=== PATIENT | female | born 1960 | race Caucasian/White ===

== ENCOUNTER 2017-04-02 03:37 | Inpatient (IN) | payer OTHER, MEDICARE ==
[~2017-04-02] VITALS: Ht 154.9 cm; Wt 61.9 kg
[~2017-04-02 03:37] MED LIST: ALBU1AER INH; ASPI81 PO; BENZ1TAB PO; CARV3.12 PO; CLON1 PO; GABA300 PO; GLUCOSE LANCETS; GLUCOSE TEST; GLUCTAB PO; IPRA17I INH; LORTA10 PO; NIAC500T34 PO; NICOTROL INH; OMEG1CAP53 PO; OMEP20TA PO; PARIMIS XX; PRAV20 PO; PRIN20TA2 PO; RISP3 PO; SELE2.5%T TOP; SYNT25TA PO; TRIA.1%T TOP; WAL-10TA2 PO; [UNRECOGNIZED DRUG - CODE] XX; [UNRECOGNIZED DRUG - SUPPLY]; [UNRECOGNIZED DRUG - SUPPLY]; glucometer
[2017-04-02 03:51] VITALS: BP 115/59; PULSE 61; RESP 18; TEMP 97.7; O2SAT 100
[2017-04-02] MEDS ORDERED: ASPI-110 PO (04:12)
[2017-04-02] MEDS ORDERED: RISP12.5 IM (04:12)
[2017-04-02] MEDS ORDERED: METF500T4 PO (04:12)
[2017-04-02] MEDS ORDERED: ENAL10TA PO (04:12)
[2017-04-02] MEDS ORDERED: BENZ0.5T PO ×2 (04:12→12:31)
[2017-04-02] MEDS ORDERED: CARV3.12 PO ×2 (04:12→12:32)
[2017-04-02] MEDS ORDERED: SYNT25TA PO (04:12)
[2017-04-02] MEDS ORDERED: CLON1 PO (04:12)
[2017-04-02] MEDS ORDERED: IPRA17I INH ×2 (04:12→12:39)
[2017-04-02] MEDS ORDERED: ALBUAER3 INH (04:12)
--- NOTE | 2017-04-02 04:18 | PD ---
HPI Chief Complaint: Psychiatric Symptoms Time Seen by Provider: 03:52 Travel History International Travel<30 days: No Contact w/Intl Traveler<30days: No Traveled to known affect area: No History of Present Illness HPI 56-year-old white female presents to emergency department under Chao act by PD. Patient was found to be walking down the middle of the street. The patient states that she's been feeling increasingly depressed and having suicidal thoughts. She had intended to kill herself by walking down the road into traffic. She states that she has not been completely compliant with her medications. She has a history of schizophrenia and has been hearing voices. She denies any homicidal ideation. No toxic ingestions. She does complain of chronic shoulder and back pain. PFSH Past Medical History Arthritis: Yes Asthma: No Autoimmune Disease: No Heart Rhythm Problems: No Cardiovascular Problems: Yes High Cholesterol: No Chest Pain: No Congestive Heart Failure: No COPD: Yes Cerebrovascular Accident: No Diabetes: Yes Patient Takes Glucophage: No Diminished Hearing: No Endocrine: No GERD: Yes Glaucoma: No Headaches: No Hepatitis: No Hiatal Hernia: No Hypertension: Yes Kidney Stones: No Musculoskeletal: No Neurologic: No Respiratory: No Myocardial Infarction: No Renal Failure: No Schizophrenia: Yes Seizures: No Thyroid Disease: No Ulcer: No Tetanus Vaccination: < 5 Years Influenza Vaccination: No Past Surgical History Abdominal Surgery: No AICD: No Cardiac Surgery: No Cholecystectomy: Yes Ear Surgery: No Endocrine Surgery: No Eye Surgery: No Genitourinary Surgery: No Gynecologic Surgery: No Oral Surgery: No Pacemaker: No Thoracic Surgery: No Other Surgery: Yes (SPLEEN) Social History Alcohol Use: No Tobacco Use: Yes Substance Use: No Allergies-Medications (Allergen,Severity, Reaction): Coded Allergies: buspirone (Unverified Allergy, Severe, HEART RACES, 04/02/17) doxycycline (Unverified Allergy, Severe, 04/02/17) minocycline (Unverified Allergy, Severe, 04/02/17) tigecycline (Unverified Allergy, Severe, 04/02/17) diphenhydramine (Unverified Allergy, Intermediate, hives, 04/02/17) diazepam (Unverified Allergy, Mild, HEART RACES, 04/02/17) erythromycin base (Unverified Allergy, Unknown, 04/02/17) penicillin V (Unverified Allergy, Unknown, 04/02/17) bupropion (Unverified Adverse Reaction, Intermediate, suicidal, 04/02/17) mometasone furoate (Unverified Adverse Reaction, Intermediate, NOSE BLEED , 04/02/17) ziprasidone (Unverified Adverse Reaction, Intermediate, tremor, 04/02/17) onion (Unverified Adverse Reaction, Mild, emesis, 04/02/17) Uncoded Allergies: MYCINS (Allergy, Severe, 10/19/08) CITRUS (Allergy, Mild, Blader infection , 12/12/11) Reported Meds & Prescriptions Reported Meds & Active Scripts Active Reported Risperdal Consta Inj (Risperidone Inj) 12.5 Mg Inj 12.5 Mg IM Q14D Metformin ER (Metformin HCl) 500 Mg Justa 500 Mg PO BID With evening meal Synthroid (Levothyroxine Sodium) 25 Mcg Tab 25 Mcg PO DAILY Enalapril (Enalapril Maleate) 10 Mg Tab 10 Mg PO DAILY Atrovent HFA 12.9 GM Inh (Ipratropium Pioneer) 17 Mcg/Act Aer 2 Puff INH QID Klonopin (Clonazepam) 1 Mg Tab 1 Mg PO TID Carvedilol 3.125 Mg Tab 3.125 Mg PO BID Benztropine (Benztropine Mesylate) 0.5 Mg Tab 1 Mg PO BID Aspirin 81 (Aspirin) 81 Mg Tabdr 81 Mg PO DAILY Proair Hfa 8.5 GM Inh (Albuterol Sulfate) 90 Mcg/Act Aer 2 Puff INH Q4-6H PRN 108 mcg/actuation Review of Systems Except as stated in HPI: all other systems reviewed are Neg Musculoskeletal: Positive: Myalgias, Arthralgias, Limited ROM, Pain Skin: No Rash, No Itching Neurologic: No: Headache, Paresthesia Psychiatric: Positive: Depression, Suicidal Ideations, Disorder of Thought, No : Anxiety, Mood Disorder, Substance Abuse, Homicidal Ideation Physical Exam Narrative GENERAL: Well-nourished, well-developed patient. SKIN: Warm and dry. HEAD: Normocephalic and atraumatic. EYES: No scleral icterus. No injection or drainage. ENT: No nasal drainage noted. Mucous membranes pink. Airway patent. NECK: Supple, trachea midline. Moves head freely without obvious discomfort. CARDIOVASCULAR: Regular rate and rhythm without murmurs, gallops, or rubs. RESPIRATORY: Breath sounds equal bilaterally. No accessory muscle use. GASTROINTESTINAL: Abdomen soft, non-tender, nondistended. EXTREMITIES: No cyanosis or edema. BACK: Nontender without obvious deformity. No CVA tenderness. NEURO: Patient is alert and oriented. no sensorimotor deficits. Nonfocal. Normal speech. PSYCH: No delusions. Positive auditory hallucinations. Poor insight and judgment. No visual hallucinations. Data Data Last Documented VS Vital Signs Date Time Temp Pulse Resp B/P (MAP) Pulse Ox O2 Delivery O2 Flow Rate FiO2 04/02/17 03:55 18 04/02/17 03:51 97.7 61 115/59 (77) 100 Orders Orders Complete Blood Count With Diff (04/02/17 03:52) Comprehensive Metabolic Panel (04/02/17 03:52) Urinalysis - C+S If Indicated (04/02/17 03:52) Psych Screen (04/02/17 03:52) Drug Screen, Random Urine (04/02/17 03:52) Alcohol (Ethanol) (04/02/17 03:52) Salicylates (Aspirin) (04/02/17 03:52) Tylenol (Acetaminophen) (04/02/17 03:52) Thyroid Stimulating Hormone (04/02/17 03:52) MDM Medical Decision Making Medical Screen Exam Complete: Yes Emergency Medical Condition: Yes Medical Record Reviewed: Yes Differential Diagnosis MDM: High Differential diagnoses: Schizophrenia, schizoaffective disorder, bipolar, anxiety, depression, adjustment reaction, mood disorder NOS, ODD, depressive disorder NOS, dementia, dementia with agitation, psychosis NOS, substance induced mood disorder, intermittent explosive disorder, Asperger syndrome, infection,electrolyte abnormality, malingering. . Narrative Course Mental health screening discussed with the patient. Psychiatric screen ordered The patient's been medically cleared Diagnosis Primary Impression: Chronic schizoaffective schizophrenia Condition: Stable Guanaco Parker Apr 02, 2017 04:18
[2017-04-02 04:30] LABS: BLOOD, URINE NEG (NEG); COMMENT (UR) CULT NOT INDICATED; CULTURE IF INDICATED CULT NOT INDICATED; GLUCOSE,URINE NEG (NEG); KETONE, URINE NEG (NEG); MUCUS URINE FEW /lpf (OCC); NITRITE,URINE NEG (NEG); PH, URINE 6.5 (5.0-8.5); SQUAMOUS EPITHELIAL CELL URINE 1 /hpf (0-5); URINE COLOR YELLOW (YELLW/STRAW)
[2017-04-02 04:43] LABS: ALT (GPT) 43 U/L (10-53); ANION GAP 6 MEQ/L (5-15); AST (GOT) 16 U/L (15-37); BICARBONATE 30.9 MEQ/L (21.0-32.0); BLOOD UREA NITROGEN 17 MG/DL (7-18); CHLORIDE 106 MEQ/L (98-107); GLOMERULAR FILTRATION RATE 84 ML/MIN (>89); POTASSIUM 4.1 MEQ/L (3.5-5.1); SODIUM (NA) 143 MEQ/L (136-145)
[2017-04-02 04:53] LABS: ACETAMINOPHEN LESS THAN 2.0 MCG/ML (10.0-30.0); ALKALINE PHOSPHATASE 100 U/L (45-117); TOTAL BILIRUBIN ADULT 0.4 MG/DL (0.2-1.0)
[2017-04-02 04:56] LABS: ALCOHOL LESS THAN 3 MG/DL (0-5)
[2017-04-02 05:08] VITALS: BP 93/52; PULSE 50; RESP 18; O2SAT 97
[2017-04-02 07:32] LABS: AUTOMATED NEUTROPHIL # 7.2 TH/MM3 (1.8-7.7); BASOPHIL # 0.1 TH/MM3 (0-0.2); BASOPHIL % 0.6 % (0.0-2.0); EOSINOPHIL # 0.5 TH/MM3 (0-0.4); EOSINOPHIL % 4.2 % (0.0-4.0); HEMATOCRIT 43.1 % (35.0-46.0); LYMPH % 31.8 % (9.0-44.0); LYMPHOCYTE # 4.1 TH/MM3 (1.0-4.8); MEAN CELL VOLUME 94.7 FL (80.0-100.0); MEAN CORPUSCULAR HEMOGLOBIN 31.1 PG (27.0-34.0); MEAN CORPUSCULAR HGB CONC 32.8 % (32.0-36.0); MONO % 7.3 % (0.0-8.0); NEUT % 56.1 % (16.0-70.0); RED BLOOD COUNT 4.55 MIL/MM3 (4.00-5.30); RED CELL DISTRIBUTION WIDTH 12.3 % (11.6-17.2)
[2017-04-02 07:35] LABS: HEMO FLAGS AUTO DIFF
[2017-04-02 07:36] LABS: PLATELET COUNT 194 TH/MM3 (150-450)
[2017-04-02 07:54] LABS: PLATELET ESTIMATE SMEAR NORMAL (NORMAL); PLATELET MORPHOLOGY CLUMPED (NORMAL); SCAN/DIFF AUTO DIFF CONFIRMED
[2017-04-02 08:00] VITALS: BP 122/66; PULSE 68; RESP 18; O2SAT 98
[2017-04-02 11:12] VITALS: BP 125/65; PULSE 63; RESP 16; O2SAT 99
[2017-04-02] MEDS ORDERED: HYDR50CA PO (12:29)
[2017-04-02] MEDS ORDERED: OMEP20TA PO (12:31)
[2017-04-02] MEDS ORDERED: GABA300C5 PO (12:36)
[2017-04-02] MEDS ORDERED: VENTAER INH (12:36)
[2017-04-02] MEDS ORDERED: ATOR10TA15 PO (12:37)
[2017-04-02] MEDS ORDERED: CLON1TAB PO (12:38)
[2017-04-02] MEDS ORDERED: NIZORAL TOPICAL (12:40)
[2017-04-02] MEDS ORDERED: ACETAMINOPHEN 325 MG TAB PO PRN (12:45)
[2017-04-02] MEDS ORDERED: LORazepam 2 MG/ML VIAL IM PRN ×2 (12:45)
[2017-04-02] MEDS ORDERED: LORazepam 0.5 MG TAB PO PRN (12:45)
[2017-04-02] MEDS ORDERED: ALUMINUM/MAGNESIUM/SIMETH 30 ML CUP PO PRN (12:45)
[2017-04-02] MEDS ORDERED: MAGNESIUM HYDROXIDE SUSP 30 ML CUP PO PRN (12:45)
[2017-04-02] MEDS ORDERED: PALI234P IM (12:49)
--- NOTE | 2017-04-02 13:25 | HHI.HP ---
Provisional Diagnosis Admission Date [place] I. Chronic paranoid schizophrenia Certification of Person's Competence To Provide Express and Informed Consent I have personally examined Briseida Hansen , a person being served at [facility] on, Apr 02, 2017 12:41. Express and informed consent means consent voluntarily given in writing, by a competent person, after sufficient explanation and disclosure of the subject matter involved to enable the person to make a knowing and willful decision without any element of force, fraud, deceit, duress, or other form of constraint or coercion. This person is 18 years of age or older, is not now known to be incompetent to consent to treatment with a guardian advocate, and does not have a health care surrogate or proxy currently making medical treatment decisions. I have found this person to be one of the following: [x] Competent to provide express and informed consent, as defined above, for voluntary admission to this facility and is competent to provide express and informed consent for treatment. He/she has the consistent capacity to make well reasoned, willful, and knowing decisions concerning his or her medical or mental health treatment. The person fully and consistently understands the purpose of the admission for examination/placement and is fully capable of personally exercising all rights [place] Incompetent to provide express and informed consent to voluntary admission, and this is incompetent to provide express and informed consent to treatment. The person must be transferred to involuntary status and a petition for a guardian advocate filed with the Circuit Court. [] Refusing to provide express and informed consent to voluntary admission but is competent to provide express and informed consent for treatment. The person must be discharged or transferred to involuntary status. Form shall be completed within 24 hours of a person's arrival at the receiving facility and filed in the clinical record of each person: 1. Admitted on a voluntary basis 2. Permitted to provide express and informed consent to his/her own treatment 3. Allowed to transfer from involuntary to voluntary status 4. Prior to permitting a person to consent to his or her own treatment after having been previously found incompetent to consent to treatment. History of Present Illness Capacity: Has Capacity HPI 56-year-old female brought in under a [place]ao act by police due to walking in the middle of the road, indicating she wanted to be hit by a car and complaining of hearing voices. Patient is self-admitted schizophrenic and indicates she has not been very compliant with her medicines over the last several months. Police observed her walking in the middle of the road on [facility]. Patient continues to report suicidal ideation with plan. She continues to describe paranoia at her residence. She states the lights at that facility are tracking her and she must be silent from 10 PM to 6 AM. She also describes auditory hallucinations which are critical of her. The patient feels she can no longer tolerate her situation and this is the reason that she wants to kill herself. She denies any ingestion of alcohol or illicit drugs. However, she is unable to provide a cogent history regarding her current medications or treatment. court collections officer wrote that she takes Risperdal and has a history of cardiac problems. Some history patient has been treated at [facility] recently with in [facility]. Review of Systems Except as stated in HPI: all other systems reviewed are Neg Past Psych History Psychological trauma history No known trauma. Violence risk - others (6 mos) Minimal Violence risk - self (6 mos) High Substance Abuse History Drugs/Alcohol past 12 months Denied Past Family Social History Coded Allergies: buspirone (Unverified Allergy, Severe, HEART RACES, 04/02/17) doxycycline (Unverified Allergy, Severe, 04/02/17) minocycline (Unverified Allergy, Severe, 04/02/17) tigecycline (Unverified Allergy, Severe, 04/02/17) diphenhydramine (Unverified Allergy, Intermediate, hives, 04/02/17) diazepam (Unverified Allergy, Mild, HEART RACES, 04/02/17) erythromycin base (Unverified Allergy, Unknown, 04/02/17) penicillin V (Unverified Allergy, Unknown, 04/02/17) bupropion (Unverified Adverse Reaction, Intermediate, suicidal, 04/02/17) mometasone furoate (Unverified Adverse Reaction, Intermediate, NOSE BLEED , 04/02/17) ziprasidone (Unverified Adverse Reaction, Intermediate, tremor, 04/02/17) onion (Unverified Adverse Reaction, Mild, emesis, 04/02/17) Uncoded Allergies: MYCINS (Allergy, Severe, 10/19/08) CITRUS (Allergy, Mild, Blader infection , 12/12/11) Reported Medications [Nizoral Cream] No Conflict Check, TOPICAL 04/02/17 Ipratropium HFA 12.9 GM Inh (Atrovent HFA 12.9 GM Inh) 17 Mcg/Actuation Aer, 1 PUFF INH QID Y for SHORTNESS OF BREATH, #1 INHALER 0 Refills 04/02/17 Clonazepam (Clonazepam) 1 Mg Tab, 1 MG PO TID Y for ANXIETY, #90 TAB 0 Refills 04/02/17 Atorvastatin (Atorvastatin) 10 Mg Tab, 10 MG PO DAILY for Cholesterol Management , #30 TAB 0 Refills 04/02/17 Albuterol 18 GM Inh (Ventolin Hfa 18 GM Inh) 90 Mcg/Act Aer, 2 PUFF INH Q6H Y for SHORTNESS OF BREATH, #1 INHALER 0 Refills 04/02/17 Gabapentin (Gabapentin) 300 Mg Cap, 300 MG PO TID, #90 CAP 0 Refills 04/02/17 Carvedilol (Carvedilol) 3.125 Mg Tab, 3.125 MG PO BID, #60 TAB 0 Refills 04/02/17 Omeprazole (Omeprazole) 20 Mg Tab, 20 MG PO DAILY, #30 TAB 0 Refills 04/02/17 Benztropine (Benztropine) 0.5 Mg Tab, 1 MG PO HS, #30 TAB 0 Refills 04/02/17 Hydroxyzine Pamoate (Hydroxyzine Pamoate) 50 Mg Cap, 50 MG PO TID, CAP 0 Refills 04/02/17 Risperidone Inj (Risperdal Consta Inj) 12.5 Mg Inj, 12.5 MG IM Q14D, #2 VIAL 0 Refills 04/02/17 Metformin ER (Metformin ER) 500 Mg Justa, 500 MG PO BID for Blood Sugar Management, TAB 0 Refills With evening meal 04/02/17 Levothyroxine (Synthroid) 25 Mcg Tab, 25 MCG PO DAILY for Thyroid, #30 TAB 0 Refills 04/02/17 Enalapril (Enalapril) 10 Mg Tab, 10 MG PO DAILY, #30 TAB 0 Refills 04/02/17 Ipratropium HFA 12.9 GM Inh (Atrovent HFA 12.9 GM Inh) 17 Mcg/Act Aer, 2 PUFF INH QID, #1 INHALER 0 Refills 04/02/17 Clonazepam (Klonopin) 1 Mg Tab, 1 MG PO TID, #90 TAB 0 Refills 04/02/17 Carvedilol (Carvedilol) 3.125 Mg Tab, 3.125 MG PO BID, #60 TAB 0 Refills 04/02/17 Benztropine (Benztropine) 0.5 Mg Tab, 1 MG PO BID, #60 TAB 0 Refills 04/02/[address] (Aspirin 81) 81 Mg Tabdr, 81 MG PO DAILY, TAB 0 Refills 04/02/17 Albuterol 8.5 GM Inh (Proair Hfa 8.5 GM Inh) 90 Mcg/Act Aer, 2 PUFF INH Q4-6H Y for SHORTNESS OF BREATH, #1 INHALER 0 Refills 108 mcg/actuation 04/02/17 Family History Unknown to patient Social History Apparently patient sister has power of district attorney. Patient denies use of alcohol or drugs. She is unemployed and receives disability. Patient's Strengths (min. 2) verbal and access to health care. Physical Exam GENERAL: SKIN: Warm and dry. HEAD: Normocephalic. EYES: No scleral icterus. No injection or drainage. NECK: Supple, trachea midline. No JVD or lymphadenopathy. CARDIOVASCULAR: Regular rate and rhythm without murmurs, gallops, or rubs. RESPIRATORY: Breath sounds equal bilaterally. No accessory muscle use. GASTROINTESTINAL: Abdomen soft, non-tender, nondistended. MUSCULOSKELETAL: No cyanosis, or edema. BACK: Nontender without obvious deformity. No CVA tenderness. Vital Signs Vital Signs Date Time Temp Pulse Resp B/P (MAP) Pulse Ox O2 Delivery O2 Flow Rate FiO2 04/02/17 11:12 63 16 125/65 (85) 99 Room Air 04/02/17 03:51 97.7 Lab Results Test 04/02/17 04:00 04/02/17 07:00 Urine Color YELLOW Urine Turbidity CLEAR Urine pH 6.5 Urine Specific [place] 1.016 Urine Protein NEG mg/dL Urine Glucose (UA) NEG mg/dL Urine Ketones NEG mg/dL Urine Occult Blood NEG Urine Nitrite NEG Urine Bilirubin NEG Urine Urobilinogen LESS THAN 2.0 MG/DL Urine Leukocyte Esterase NEG Urine RBC LESS THAN 1 /hpf Urine WBC 2 /hpf Urine Squamous Epithelial Cells 1 /hpf Urine Mucus FEW /lpf Microscopic Urinalysis Comment CULT NOT INDICATED Blood Urea Nitrogen 17 MG/DL Creatinine 0.72 MG/DL Random Glucose 96 MG/DL Total Protein 6.9 GM/DL Albumin 3.7 GM/DL Calcium Level 10.0 MG/DL Alkaline Phosphatase 100 U/L Aspartate Amino Transf (AST/SGOT) 16 U/L Alanine Aminotransferase (ALT/SGPT) 43 U/L Total Bilirubin 0.4 MG/DL Sodium Level 143 MEQ/L Potassium Level 4.1 MEQ/L Chloride Level 106 MEQ/L Carbon Dioxide Level 30.9 MEQ/L Anion Gap 6 MEQ/L Estimat Glomerular Filtration Rate 84 ML/MIN Thyroid Stimulating Hormone 3rd Gen 4.150 uIU/ML Salicylates Level 3.2 MG/DL Urine Opiates Screen NEG Acetaminophen Level LESS THAN 2.0 MCG/ML Urine Barbiturates Screen NEG Urine Amphetamines Screen NEG Urine Benzodiazepines Screen NEG Urine Cocaine Screen NEG Urine Cannabinoids Screen NEG Ethyl Alcohol Level LESS THAN 3 MG/DL White Blood Count 11.0 TH/MM3 Red Blood Count 4.55 MIL/MM3 Hemoglobin 14.2 GM/DL Hematocrit 43.1 % Mean Corpuscular Volume 94.7 FL Mean Corpuscular Hemoglobin 31.1 PG Mean Corpuscular Hemoglobin Concent 32.8 % Red Cell Distribution Width 12.3 % Platelet Count 194 TH/MM3 Mean Platelet Volume 7.9 FL Neutrophils (%) (Auto) 56.1 % Lymphocytes (%) (Auto) 31.8 % Monocytes (%) (Auto) 7.3 % Eosinophils (%) (Auto) 4.2 % Basophils (%) (Auto) 0.6 % Neutrophils # (Auto) 7.2 TH/MM3 Lymphocytes # (Auto) 4.1 TH/MM3 Monocytes # (Auto) 0.9 TH/MM3 Eosinophils # (Auto) 0.5 TH/MM3 Basophils # (Auto) 0.1 TH/MM3 CBC Comment AUTO DIFF Differential Comment AUTO DIFF CONFIRMED Platelet Estimate NORMAL Platelet Morphology Comment CLUMPED Mental Status Examination Speech: Unremarkable Orientation: x3 Memory: Unremarkable Thought Process: Loose Association Thought Content: Bizarre thinking, Paranoid Hallucination Type: Auditory Attention and Concentration: Abnormal Suicidal Ideation: Yes Previous Suicide Attempts: No Homicidal Ideation: No Previous Homicide Attempts: No Insight: Fair Judgment: Unrealistic Affect: Good Affect if Inappropriate: Blunt Mood: Appropriate, Irritable Motor Activity: Normal gait Assessment & Plan Problem List: (1) Schizophrenia, paranoid type ICD Codes: F20.0 - Paranoid schizophrenia Status: Chronic Assessment & Plan Estimated LOS: days 56-year-old female presents under a Chao act for dangerous behavior and psychotic symptoms. Patient found walking in the middle of [address], stating she wanted to kill herself by stepping in front of traffic and describing auditory hallucinations. This physician feels patient is at very high risk for self-harm. She continues to be psychotic and suicidal. This physician is admitting the patient for further evaluation and treatment. I am obtaining a CBC and comprehensive metabolic profile to determine if any infectious process or metabolic process is causing or contributing to her psychosis. She will also receive thyroid stimulating hormone level, vitamin B 12 level and vitamin D level to ascertain if any deficiencies in these areas are causing her creating her psychosis. She will receive a EKG to make sure cardiac conduction systems are adequate to tolerate and I psychotic and possibly antidepressant medication. This physician is contacting hospitalist for physical medicine consult due to patient's history of cardiac illness and current inguinal rash complaints. Occupational therapy is also being consult to evaluate the patient's functionality. This physician spoke with the patient' s nurse regarding her recent behavior and reviewed the patient's medical record. Finally, case management will be involved to obtain further information from sister, who is power of district attorney and to assist with disposition planning. Markos Thomas MD Apr 02, 2017 13:25
--- NOTE | 2017-04-02 14:33 | PD.CONS ---
HPI Service [facility] Hospitalists Consult Requested By Dr. Thomas Reason for Consult Inguinal rash Primary Care Physician Florence Stout MD Diagnoses: History of Present Illness Written by Nora Saba, acting as scribe for Dr. Benoit on 04/02/17 at 14:30. Ms. Hansen is a 56-year-old female patient with a known medical history of schizophrenia, tobacco abuse, COPD, CAD and neuropathy who presented to the ED under BA due to paranoid schizophrenia and suicidal thoughts. Hospitalist team has been consulted for medical management for inguinal rash. Patient states that she was in an argument with her sister today and became upset and "tried to get killed by a car today". Patient currently denies any suicidal ideation. She does state that she has had a rash in her groin area for over 15 years and has tried multiple remedies including gold gayle and zinc oxide with no affect. She states she has been seen recently by her PCP who prescribed ketoconazole cream for the area which has showed some improvement. Does state that she has a new boyfriend but denies any sexual relationship with him. Denies any recent illness including fever, chills, cough, shortness of breath, abdominal pain, nausea, vomiting, diarrhea or dysuria. Admits to compliance with all current medications. Does admit to current tobacco use of 2 ppd. Patient also states she follows with [facility] [place] in the outpatient setting for management of her paranoid schizophrenia. Review of Systems Integumentary: COMPLAINS OF: Rash (inguinal) Psychiatric: COMPLAINS OF: Mood changes, Suicidal Ideation Except as stated in HPI: all other systems reviewed are Neg Past Family Social History Allergies: Coded Allergies: buspirone (Unverified Allergy, Severe, HEART RACES, 04/02/17) doxycycline (Unverified Allergy, Severe, 04/02/17) minocycline (Unverified Allergy, Severe, 04/02/17) tigecycline (Unverified Allergy, Severe, 04/02/17) diphenhydramine (Unverified Allergy, Intermediate, hives, 04/02/17) diazepam (Unverified Allergy, Mild, HEART RACES, 04/02/17) Benzodiazepines (Verified Allergy, Unknown, 04/02/17) Per Pharmacist - Micha José [facility] [place], [place] [phone]. Penicillins (Verified Allergy, Unknown, 04/02/17) Per [place], [place] [phone]. Sulfa (Sulfonamide Antibiotics) (Verified Allergy, Unknown, 04/02/17) [place] [phone]. Tetracyclines (Verified Allergy, Unknown, 04/02/17) [place], [place] [phone]. erythromycin base (Unverified Allergy, Unknown, 04/02/17) penicillin V (Unverified Allergy, Unknown, 04/02/17) bupropion (Unverified Adverse Reaction, Intermediate, suicidal, 04/02/17) mometasone furoate (Unverified Adverse Reaction, Intermediate, NOSE BLEED , 04/02/17) ziprasidone (Unverified Adverse Reaction, Intermediate, tremor, 04/02/17) onion (Unverified Adverse Reaction, Mild, emesis, 04/02/17) Uncoded Allergies: MYCINS (Allergy, Severe, 10/19/08) CITRUS (Allergy, Mild, Blader infection , 12/12/11) Macrolides (Allergy, Unknown, 04/02/17) Per [place], [place] [phone]. Quinines (Allergy, Unknown, 04/02/17) [place] [phone]. Past Medical History Hypertension GERD CAD COPD Tobacco abuse Paranoid schizophrenia Neuropathy Hyperlipidemia Chronic back and neck pain Past Surgical History Cholecystectomy Reported Medications Active Reported Invega Sustenna Inj (Paliperidone Palmitate) 234 Mg/1.5 Ml Inj 234 Mg IM [id number] [Nizoral Cream] TOPICAL Atrovent HFA 12.9 GM Inh (Ipratropium [place]) 17 Mcg/Actuation Aer 1 Puff INH QID PRN Clonazepam 1 Mg Tab 1 Mg PO TID PRN Atorvastatin (Atorvastatin Calcium) 10 Mg Tab 10 Mg PO DAILY Ventolin Hfa 18 GM Inh (Albuterol Sulfate) 90 Mcg/Act Aer 2 Puff INH Q6H PRN Gabapentin 300 Mg Cap 300 Mg PO TID Carvedilol 3.125 Mg Tab 3.125 Mg PO BID Omeprazole 20 Mg Tab 20 Mg PO DAILY Benztropine (Benztropine Mesylate) 0.5 Mg Tab 1 Mg PO HS Hydroxyzine Pamoate 50 Mg Cap 50 Mg PO TID Active Ordered Medications Current Medications Medications (Trade) Dose Ordered Sig/Cristiane Route Start Time Stop Time Status Last Admin (Ativan) 1 mg Q6H PRN PO 04/02/17 12:45 (Ativan Inj) 1 mg Q6H PRN IM 04/02/17 12:45 (Tylenol) 650 mg Q4H PRN PO 04/02/17 12:45 (Milk Of Magnesia Liq) 30 ml DAILY PRN PO 04/02/17 12:45 (Mag-Al Plus Susp Liq) 30 ml Q6H PRN PO 04/02/17 12:45 Family History Grandmother and maternal family medical history significant for "lung disease". Social History Patient admits to smoking 2 ppd cigarettes. Denies any alcohol use. Denies any illicit drug use. Physical Exam Vital Signs Vital Signs Date Time Temp Pulse Resp B/P (MAP) Pulse Ox O2 Delivery O2 Flow Rate FiO2 04/02/17 11:12 63 16 125/65 (85) 99 Room Air 04/02/17 08:00 68 18 122/66 (84) 98 Room Air 04/02/17 05:08 50 18 93/52 (66) 97 Room Air 04/02/17 03:55 18 04/02/17 03:51 97.7 61 18 115/59 (77) 100 Physical Exam GENERAL: Well-nourished, well-developed female patient, lying in bed in no apparent distress. SKIN: Bilateral inguinal rash present, erythematous and scaly. No ecchymoses. HEENT: Atraumatic. Normocephalic. No temporal or scalp tenderness. Pupils equal round and reactive. Extraocular motions intact. No scleral icterus. No injection or drainage. Nose without bleeding. Airway patent. NECK: Trachea midline. No JVD or lymphadenopathy. Supple. CARDIOVASCULAR: Regular rate and rhythm without murmurs, gallops, or rubs. RESPIRATORY: Clear to auscultation. Breath sounds equal bilaterally. No wheezes , rales, or rhonchi. GASTROINTESTINAL: Abdomen soft, non-tender, nondistended. No guarding. MUSCULOSKELETAL: Extremities without clubbing, cyanosis, or edema. No joint tenderness, effusion, or edema noted. NEUROLOGICAL: Awake and alert. Cranial nerves II through XII intact. Motor and sensory grossly within normal limits. Five out of 5 muscle strength in all muscle groups. Normal speech. Laboratory Laboratory Tests Test 04/02/17 04:00 04/02/17 07:00 Urine Color YELLOW Urine Turbidity CLEAR Urine pH 6.5 Urine Specific [place] 1.016 Urine Protein NEG Urine Glucose (UA) NEG Urine Ketones NEG Urine Occult Blood NEG Urine Nitrite NEG Urine Bilirubin NEG Urine Urobilinogen LESS THAN 2.0 Urine Leukocyte Esterase NEG Urine RBC LESS THAN 1 Urine WBC 2 Urine Squamous Epithelial Cells 1 Urine Mucus FEW Microscopic Urinalysis Comment CULT NOT INDICATED Blood Urea Nitrogen 17 Creatinine 0.72 Random Glucose 96 Total Protein 6.9 Albumin 3.7 Calcium Level 10.0 Alkaline Phosphatase 100 Aspartate Amino Transf (AST/SGOT) 16 Alanine Aminotransferase (ALT/SGPT) 43 Total Bilirubin 0.4 Sodium Level 143 Potassium Level 4.1 Chloride Level 106 Carbon Dioxide Level 30.9 Anion Gap 6 Estimat Glomerular Filtration Rate 84 Thyroid Stimulating Hormone 3rd Gen 4.150 Salicylates Level 3.2 Urine Opiates Screen NEG Acetaminophen Level LESS THAN 2.0 Urine Barbiturates Screen NEG Urine Amphetamines Screen NEG Urine Benzodiazepines Screen NEG Urine Cocaine Screen NEG Urine Cannabinoids Screen NEG Ethyl Alcohol Level LESS THAN 3 White Blood Count 11.0 Red Blood Count 4.55 Hemoglobin 14.2 Hematocrit 43.1 Mean Corpuscular Volume 94.7 Mean Corpuscular Hemoglobin 31.1 Mean Corpuscular Hemoglobin Concent 32.8 Red Cell Distribution Width 12.3 Platelet Count 194 Mean Platelet Volume 7.9 Neutrophils (%) (Auto) 56.1 Lymphocytes (%) (Auto) 31.8 Monocytes (%) (Auto) 7.3 Eosinophils (%) (Auto) 4.2 Basophils (%) (Auto) 0.6 Neutrophils # (Auto) 7.2 Lymphocytes # (Auto) 4.1 Monocytes # (Auto) 0.9 Eosinophils # (Auto) 0.5 Basophils # (Auto) 0.1 CBC Comment AUTO DIFF Differential Comment AUTO DIFF CONFIRMED Platelet Estimate NORMAL Platelet Morphology Comment CLUMPED Result Diagram: 04/02/17 0700 04/02/17 0400 Assessment and Plan Assessment and Plan Ms. Hansen is a 56-year-old female patient with a known medical history of schizophrenia, tobacco abuse, COPD, CAD and neuropathy who presented to the ED under BA due paranoid schizophrenia and suicidal ideation. Hospitalist team has been consulted for medical management of chronic inguinal rash. Paranoid schizophrenia, acute on chronic: Management per psych team. No current suicidal ideation. Inguinal rash: Possibly fungal. Non painful. Apparently chronic over the past 15 years or so. Appears similar to psoriasis but location not consistent. Start Nystatin powder. Keep clean and dry. Monitor WBC. Afebrile. Coronary artery disease: Continue home Carvedilol. Monitor BP and heart rate. Chronic obstructive pulmonary disease: Duonebs scheduled and PRN as needed for wheezing. Continue home Inhalers. Not in exacerbation. Neuropathy: Continue home Gabapentin. Hyperlipidemia: Continue home atorvastatin. Tobacco abuse: Encourage cessation. Nicotine patch. DVT Prophylaxis: Low risk, ambulation. Thank you for this consultation. Will follow with you. Discussed Condition With This note was transcribed by emily Saba. I, Dr. Mason Benoit personally performed the history, physical exam, and medical decision making; and confirmed the accuracy of the information in the transcribed note. Authenticated by Dr. Mason Benoit on 04/02/17 at 15:58. Nora Saba Apr 02, 2017 14:33 Mason Benoit DO Apr 02, 2017 15:58
[2017-04-02] MEDS ORDERED: RESP: ALBUTEROL 2.5 MG/IPRATROPIUM 0.5 MG NEB (PRN) NEB (14:45)
[2017-04-02] MEDS ORDERED: IPRATROPIUM BROMIDE 17 MCG/ACT 12.9 GM INHALER INH PRN (14:45)
[2017-04-02] MEDS: NICOTINE 21 MG/24 HR PATCH T-DERMAL SCH ×2 (14:45→21:17)
[2017-04-02] MEDS ORDERED: ALBUTEROL SULFATE 90 MCG/ACT HFA 8 GM INHALER INH PRN (14:45)
[2017-04-02] MEDS: NYSTATIN 100,000 U/GM PWD 15 GM BTL TOPICAL SCH ×2 (16:00→22:00)
[2017-04-02] MEDS: GABAPENTIN 300 MG CAP PO SCH ×2 (18:00→19:45)
[2017-04-02 19:33] VITALS: BP 142/80; PULSE 60; RESP 16; TEMP 98.2; O2SAT 98
[2017-04-02] MEDS: CARVEDILOL 3.125 MG TAB PO SCH (21:14)
[2017-04-03] MEDS: LORazepam 1 MG TAB PO PRN ×2 (00:48→17:18)
[2017-04-03] MEDS: NYSTATIN 100,000 U/GM PWD 15 GM BTL TOPICAL SCH ×3 (05:45→20:44)
[2017-04-03 06:19] VITALS: BP 128/77; PULSE 76; RESP 17; TEMP 98.4; O2SAT 98
[2017-04-03] MEDS: RESP: ALBUTEROL 2.5 MG/IPRATROPIUM 0.5 MG NEB (SCH) NEB ×3 (08:00→20:36)
[2017-04-03] MEDS: ATORVASTATIN 10 MG TAB PO SCH (08:39)
[2017-04-03] MEDS: CARVEDILOL 3.125 MG TAB PO SCH ×2 (08:39→20:44)
[2017-04-03] MEDS: GABAPENTIN 300 MG CAP PO SCH ×3 (08:39→17:15)
[2017-04-03] MEDS: PANTOPRAZOLE SOD 20 MG DELAYED RELEASE TAB PO SCH (08:40)
[2017-04-03] MEDS: REMOVE OLD PATCH T-DERMAL SCH (08:40)
[2017-04-03] MEDS: NICOTINE 21 MG/24 HR PATCH T-DERMAL SCH (08:40)
[2017-04-03 13:14] LABS: ANION GAP 8 MEQ/L (5-15); AST (GOT) 30 U/L (15-37); BICARBONATE 28.9 MEQ/L (21.0-32.0); BLOOD UREA NITROGEN 18 MG/DL (7-18); CHLORIDE 103 MEQ/L (98-107); GLOMERULAR FILTRATION RATE 87 ML/MIN (>89); SODIUM (NA) 140 MEQ/L (136-145)
[2017-04-03 13:31] LABS: AUTOMATED NEUTROPHIL # 9.8 TH/MM3 (1.8-7.7); BASOPHIL # 0.1 TH/MM3 (0-0.2); EOSINOPHIL # 0.3 TH/MM3 (0-0.4); EOSINOPHIL % 1.8 % (0.0-4.0); HEMATOCRIT 44.3 % (35.0-46.0); HEMO FLAGS DIFF FINAL; LYMPH % 21.4 % (9.0-44.0); LYMPHOCYTE # 3.1 TH/MM3 (1.0-4.8); MEAN CELL VOLUME 95.4 FL (80.0-100.0); MEAN CORPUSCULAR HEMOGLOBIN 31.7 PG (27.0-34.0); MEAN CORPUSCULAR HGB CONC 33.3 % (32.0-36.0); MONO % 7.1 % (0.0-8.0); NEUT % 68.7 % (16.0-70.0); RED BLOOD COUNT 4.65 MIL/MM3 (4.00-5.30); WHITE BLOOD COUNT 14.3 TH/MM3 (4.0-11.0)
[2017-04-03 14:13] LABS: ALKALINE PHOSPHATASE 102 U/L (45-117); ALT (GPT) 62 U/L (10-53); HDL CHOLESTEROL 37.6 MG/DL (40.0-60.0); LDL CHOLESTEROL 70 MG/DL (0-99); TOTAL BILIRUBIN ADULT 0.2 MG/DL (0.2-1.0)
[2017-04-03 14:15] LABS: PLATELET COUNT 230 TH/MM3 (150-450)
[2017-04-03 15:43] LABS: HEMOGLOBIN A1a 1.2 %; HEMOGLOBIN A1b 0.8 %; HEMOGLOBIN Ao 84.7 %; HEMOGLOBIN LA1C 2.1 %; HEMOGLOBIN P3 3.9 %
[2017-04-03] MEDS ORDERED: ALUMINUM/MAGNESIUM/SIMETH 30 ML CUP PO PRN (15:45)
--- NOTE | 2017-04-03 15:46 | HHI.PYPN ---
Subjective Remarks Initial psychiatric they'll dictated by Dr. Thomas reviewed and agreed with. I have completed the admission psychiatric template and review the med reconciliation form. Patient then seen by me with nurse Hector in her room. She is an alert white female appears older than her stated age is a compliant with [facility] act is about 1 week shy of her Invega Sustenna injection is noted increase auditory hallucinations of the meaning command type leading to suicidal thoughts walking into traffic. She has slight insight into this. She lives by herself is markedly socially isolated. She has a sister that is involved with her. She has adult daughter with 3 children whom she is estranged from. She is quite tearful. His dose as to whether she would take the suicide pill or not. At the present time we will set the patient Resporal 1 mg twice a day in preparation for the Resporal intake sustain a injection per the med reconciliation. We did contact patient's sister to determine if we need to consider more structured living arrangement Review of Systems Constitutional: DENIES: Diaphoretic episodes, Fatigue, Fever, Weight gain, Weight loss, Chills, Dizziness, Change in appetite, Night Sweats Endocrine: DENIES: Abnorml menstrual pattern, Heat/cold intolerance, Polydipsia , Polyuria, Polyphagia Eyes: DENIES: Blurred vision, Diplopia, Eye inflammation, Eye pain, Vision loss , Photosensitivity, Double Vision Ears, nose, mouth, throat: DENIES: Tinnitus, Hearing loss, Vertigo, Nasal discharge, Oral lesions, Throat pain, Hoarseness, Ear Pain, Running Nose, Epistaxis, Sinus Pain, Toothache, Odynophagia Respiratory: DENIES: Apneas, Cough, Snoring, Wheezing, Hemoptysis, Sputum production, Shortness of breath Cardiovascular: DENIES: Chest pain, Palpitations, Syncope, Dyspnea on Exertion , PND, Lower Extremity Edema, Orthopnea, Claudication Gastrointestinal: DENIES: Abdominal pain, Black stools, Bloody stools, Constipation, Diarrhea, Nausea, Vomiting, Difficulty Swallowing, Anorexia Genitourinary: DENIES: Abnormal vaginal bleeding, Dysmenorrhea, Dyspareunia, Sexual dysfunction, Urinary frequency, Urinary incontinence, Urgency, Hematuria , Dysuria, Nocturia, Vaginal discharge Musculoskeletal: DENIES: Joint pain, Muscle aches, Stiffness, Joint Swelling, Back pain, Neck pain Hematologic/lymphatic: DENIES: Bruising, Lymphadenopathy Immunologic/allergic: DENIES: Eczema, Urticaria Neurologic: DENIES: Abnormal gait, Headache, Localized weakness, Paresthesias, Seizures, Speech Problems, Tremor, Poor Balance Psychiatric: COMPLAINS OF: Anxiety, Depression, Hallucinations, Suicidal Ideation Objective Alert: Yes [place]: Person, Place Mood: Anxious, Depressed Affect: Other (increase range of motion intensity) Memory Intact: Comment (fair) Hallucinations: Auditory (command demanding intimidating) Delusions: Yes Delusion Type: Paranoid Suicidal: Ideation Homicidal: Ideation (denies) Insight/Judgment Poor Labs Test 04/03/17 11:07 White Blood Count 14.3 TH/MM3 Red Blood Count 4.65 MIL/MM3 Hemoglobin 14.8 GM/DL Hematocrit 44.3 % Mean Corpuscular Volume 95.4 FL Mean Corpuscular Hemoglobin 31.7 PG Mean Corpuscular Hemoglobin Concent 33.3 % Red Cell Distribution Width 12.0 % Platelet Count 230 TH/MM3 Mean Platelet Volume 7.3 FL Neutrophils (%) (Auto) 68.7 % Lymphocytes (%) (Auto) 21.4 % Monocytes (%) (Auto) 7.1 % Eosinophils (%) (Auto) 1.8 % Basophils (%) (Auto) 1.0 % Neutrophils # (Auto) 9.8 TH/MM3 Lymphocytes # (Auto) 3.1 TH/MM3 Monocytes # (Auto) 1.0 TH/MM3 Eosinophils # (Auto) 0.3 TH/MM3 Basophils # (Auto) 0.1 TH/MM3 CBC Comment DIFF FINAL Differential Comment Blood Urea Nitrogen 18 MG/DL Creatinine 0.70 MG/DL Random Glucose 96 MG/DL Total Protein 7.0 GM/DL Albumin 3.6 GM/DL Calcium Level 10.0 MG/DL Alkaline Phosphatase 102 U/L Aspartate Amino Transf (AST/SGOT) 30 U/L Alanine Aminotransferase (ALT/SGPT) 62 U/L Total Bilirubin 0.2 MG/DL Sodium Level 140 MEQ/L Potassium Level 4.0 MEQ/L Chloride Level 103 MEQ/L Carbon Dioxide Level 28.9 MEQ/L Anion Gap 8 MEQ/L Estimat Glomerular Filtration Rate 87 ML/MIN Triglycerides Level 141 MG/DL Cholesterol Level 136 MG/DL LDL Cholesterol 70 MG/DL HDL Cholesterol 37.6 MG/DL Cholesterol/HDL Ratio 3.61 RATIO Vitamin B12 Level 662 PG/ML 25-Hydroxy Vitamin D Total 32.4 ng/ML Thyroid Stimulating Hormone 3rd Gen 1.540 uIU/ML Vitals/IOs Vital Signs Date Time Temp Pulse Resp B/P (MAP) Pulse Ox O2 Delivery O2 Flow Rate FiO2 04/03/17 06:19 98.4 76 17 128/77 (94) 98 04/02/17 11:12 Room Air Assessment & Plan Problem List: (1) Schizophrenia, paranoid type ICD Codes: F20.0 - Paranoid schizophrenia Status: Chronic Assessment & Plan Estimated LOS: 7 days patient does meet criteria for inpatient psychiatric hospitalization though I feel she does have capacity to sign voluntary thus I' ll lift the Chao act allow her sign voluntary. We'll continue medication for the medication reconciliation and Resporal 1 mg twice a day. We'll attempt contact patient's sister give further information. Justification for Cont. Inpt. At this time patient will decompensate the placed on a lower level of care Discharge Planning To be determined Jamin Benitez MD Apr 03, 2017 15:46
[2017-04-03 18:13] VITALS: BP 133/90; PULSE 58; RESP 18; TEMP 97.5; O2SAT 100
[2017-04-03] MEDS: PALIPERIDONE PALMITATE 234 MG/1.5 ML SYRINGE IM SCH (19:55)
[2017-04-03] MEDS: BENZTROPINE MESYLATE 1 MG TAB PO SCH (20:44)
[2017-04-03] MEDS: risperiDONE ODT 1 MG TAB PO SCH (20:44)
[2017-04-04] MEDS: LORazepam 1 MG TAB PO PRN (01:17)
[2017-04-04] MEDS: NYSTATIN 100,000 U/GM PWD 15 GM BTL TOPICAL SCH ×3 (06:31→22:00)
[2017-04-04 06:51] VITALS: BP 115/59; PULSE 60; RESP 16; TEMP 97.4; O2SAT 98
[2017-04-04] MEDS: RESP: ALBUTEROL 2.5 MG/IPRATROPIUM 0.5 MG NEB (SCH) NEB ×3 (08:00→18:54)
[2017-04-04] MEDS: REMOVE OLD PATCH T-DERMAL SCH (09:00)
[2017-04-04] MEDS: risperiDONE ODT 1 MG TAB PO SCH ×2 (09:33→21:00)
[2017-04-04] MEDS: GABAPENTIN 300 MG CAP PO SCH ×3 (09:33→18:00)
[2017-04-04] MEDS: CARVEDILOL 3.125 MG TAB PO SCH ×2 (09:33→21:00)
[2017-04-04] MEDS: ATORVASTATIN 10 MG TAB PO SCH (09:33)
[2017-04-04] MEDS: NICOTINE 21 MG/24 HR PATCH T-DERMAL SCH (09:33)
[2017-04-04] MEDS: PANTOPRAZOLE SOD 20 MG DELAYED RELEASE TAB PO SCH (09:33)
--- NOTE | 2017-04-04 11:04 | HHI.PR ---
Subjective Remarks Follow up inguinal rash. Patient seen and examined today. States that the patients in the unit are telling her shes and that she killed a little girl. Rash assessed and looking much better with use of Nystatin powder. Tolerating PO intake. Denies any other new acute complaints. VSS. Objective Vitals Vital Signs Date Time Temp Pulse Resp B/P (MAP) Pulse Ox O2 Delivery O2 Flow Rate FiO2 04/04/17 06:51 97.4 60 16 115/59 (77) 98 04/03/17 18:13 97.5 58 18 133/90 (104) 100 I/O 04/03/17 04/03/17 04/03/17 04/04/17 04/04/17 04/04/17 07:00 15:00 23:00 07:00 15:00 23:00 Intake Total 480 ml Balance 480 ml Intake Oral 480 ml Result Diagram: 04/03/17 1107 04/03/17 1107 Objective Remarks GENERAL: Well-nourished, well-developed female patient, lying in bed in no apparent distress. SKIN: Bilateral inguinal rash present, pink in color and healing since last assessment. No ecchymoses. HEENT: Atraumatic. Normocephalic. No temporal or scalp tenderness. Pupils equal round and reactive. Extraocular motions intact. No scleral icterus. No injection or drainage. Nose without bleeding. Airway patent. NECK: Trachea midline. No JVD or lymphadenopathy. Supple. CARDIOVASCULAR: Regular rate and rhythm without murmurs, gallops, or rubs. RESPIRATORY: Clear to auscultation. Breath sounds equal bilaterally. No wheezes , rales, or rhonchi. GASTROINTESTINAL: Abdomen soft, non-tender, nondistended. No guarding. MUSCULOSKELETAL: Extremities without clubbing, cyanosis, or edema. No joint tenderness, effusion, or edema noted. NEUROLOGICAL: Awake and alert. Cranial nerves II through XII intact. Motor and sensory grossly within normal limits. Five out of 5 muscle strength in all muscle groups. Normal speech. A/P Assessment and Plan Ms. Hansen is a 56-year-old female patient with a known medical history of schizophrenia, tobacco abuse, COPD, CAD and neuropathy who presented to the ED under BA due paranoid schizophrenia and suicidal ideation. Hospitalist team has been consulted for medical management of chronic inguinal rash. Paranoid schizophrenia, acute on chronic: Management per psych team. No current suicidal ideation. Inguinal rash: Possibly fungal. Non painful. Apparently chronic over the past 15 years or so. Appears similar to psoriasis but location not consistent. Start Nystatin powder. Keep clean and dry. Monitor WBC. Afebrile. Coronary artery disease: Continue home Carvedilol. Monitor BP and heart rate. Chronic obstructive pulmonary disease: Duonebs scheduled and PRN as needed for wheezing. Continue home Inhalers. Not in exacerbation. Neuropathy: Continue home Gabapentin. Hyperlipidemia: Continue home atorvastatin. Tobacco abuse: Encourage cessation. Nicotine patch. DVT Prophylaxis: Low risk, ambulation. Patient stable at this time, will sign off for now. Reconsult as needed. Nora Saba Apr 04, 2017 11:04
--- NOTE | 2017-04-04 15:37 | HHI.PYPN ---
Subjective Remarks Patient seen and a room with nurse Walt, chart reviewed, patient compliant medications. Patient continues somewhat distressed depressed, focusing on a medications. She also thus states she feels like she has lice. She is upset because she feels that somebody said that she killed her prior roommates baby She continues to state that she feels unsafe if discharge. She is vague about suicidality. Though she denies voices. For now continue treatment Review of Systems Except as stated in HPI: all other systems reviewed are Neg Objective Alert: Yes [place]: Person, Place Mood: Anxious, Depressed Affect: Other (increase range of motion intensity) Memory Intact: Comment (fair) Hallucinations: Auditory (command demanding intimidating) Delusions: Yes Delusion Type: Paranoid Suicidal: Ideation Homicidal: Ideation (denies) Insight/Judgment Very poor Vitals/IOs Vital Signs Date Time Temp Pulse Resp B/P (MAP) Pulse Ox O2 Delivery O2 Flow Rate FiO2 04/04/17 06:51 97.4 60 16 115/59 (77) 98 04/02/17 11:12 Room Air Intake and Output 04/04/17 04/04/17 04/05/17 08:00 16:00 00:00 Intake Total 240 ml Balance 240 ml Assessment & Plan Problem List: (1) Schizophrenia, paranoid type ICD Codes: F20.0 - Paranoid schizophrenia Status: Chronic Assessment & Plan Estimated LOS: days patient continues somewhat psychotic depressed and delusional. Compliant medications. Patient did accept her in [place] sustaina 234 mg injection yesterday Justification for Cont. Inpt. At this time patient will decompensate if placed in a lower level of care Discharge Planning To be determined Jamin Benitez MD Apr 04, 2017 15:37
[2017-04-04 18:28] VITALS: BP 117/66; PULSE 57; RESP 17; TEMP 97.4; O2SAT 100
[2017-04-04] MEDS: BENZTROPINE MESYLATE 1 MG TAB PO SCH (21:00)
[2017-04-05] MEDS: NYSTATIN 100,000 U/GM PWD 15 GM BTL TOPICAL SCH ×3 (05:51→21:49)
[2017-04-05 06:05] VITALS: BP 94/53; PULSE 56; RESP 16; TEMP 98.7; O2SAT 96
[2017-04-05] MEDS: RESP: ALBUTEROL 2.5 MG/IPRATROPIUM 0.5 MG NEB (SCH) NEB ×3 (08:00→20:00)
[2017-04-05] MEDS: CARVEDILOL 3.125 MG TAB PO SCH ×2 (09:00→21:44)
[2017-04-05] MEDS: NICOTINE 21 MG/24 HR PATCH T-DERMAL SCH (09:00)
[2017-04-05] MEDS: REMOVE OLD PATCH T-DERMAL SCH (09:00)
[2017-04-05] MEDS: risperiDONE ODT 1 MG TAB PO SCH ×2 (09:36→18:00)
[2017-04-05] MEDS: GABAPENTIN 300 MG CAP PO SCH ×3 (09:36→18:00)
[2017-04-05] MEDS: PANTOPRAZOLE SOD 20 MG DELAYED RELEASE TAB PO SCH (09:36)
[2017-04-05] MEDS: ATORVASTATIN 10 MG TAB PO SCH (09:36)
--- NOTE | 2017-04-05 13:56 | HHI.PYPN ---
Subjective Remarks Patient seen in her room with nurse Marry, chart review, patient compliant medications. Patient continues somewhat vigilant and paranoid now stating there are people that can read her mind. She states the past she had been on Respinol and that did help her. Will increase her Respinol from 1 mg twice a day to 1 mg 3 times a day continue observation Review of Systems Except as stated in HPI: all other systems reviewed are Neg Objective Alert: Yes [place]: Person, Place Mood: Anxious, Depressed Affect: Other (increase range of motion intensity) Memory Intact: Comment (fair) Hallucinations: Auditory (command demanding intimidating) Delusions: Yes Delusion Type: Paranoid Suicidal: Ideation Homicidal: Ideation (denies) Insight/Judgment Very poor Vitals/IOs Vital Signs Date Time Temp Pulse Resp B/P (MAP) Pulse Ox O2 Delivery O2 Flow Rate FiO2 04/05/17 06:05 98.7 56 16 94/53 (67) 96 04/02/17 11:12 Room Air Intake and Output 04/05/17 04/05/17 04/06/17 08:00 16:00 00:00 Intake Total 0 ml Balance 0 ml Assessment & Plan Problem List: (1) Schizophrenia, paranoid type ICD Codes: F20.0 - Paranoid schizophrenia Status: Chronic Assessment & Plan Estimated LOS: days patient continue psychotic delusional with possible thoughts that people can read her mind she medication adjustment above Justification for Cont. Inpt. At this time patient will decompensate the placed in a lower level of care Discharge Planning To be determined Jamin Benitez MD Apr 05, 2017 13:56
[2017-04-05 18:21] VITALS: BP 132/75; PULSE 72; RESP 18; TEMP 97.4; O2SAT 99
[2017-04-05] MEDS: BENZTROPINE MESYLATE 1 MG TAB PO SCH (21:44)
[2017-04-06] MEDS: NYSTATIN 100,000 U/GM PWD 15 GM BTL TOPICAL SCH ×3 (06:00→21:29)
[2017-04-06 06:09] VITALS: BP 133/90; PULSE 109; RESP 17; TEMP 97.2; O2SAT 98
[2017-04-06] MEDS: RESP: ALBUTEROL 2.5 MG/IPRATROPIUM 0.5 MG NEB (SCH) NEB ×3 (08:00→19:12)
[2017-04-06] MEDS: NICOTINE 21 MG/24 HR PATCH T-DERMAL SCH (09:00)
[2017-04-06] MEDS: REMOVE OLD PATCH T-DERMAL SCH (09:00)
[2017-04-06] MEDS: CARVEDILOL 3.125 MG TAB PO SCH ×2 (09:44→21:29)
[2017-04-06] MEDS: ATORVASTATIN 10 MG TAB PO SCH (09:45)
[2017-04-06] MEDS: GABAPENTIN 300 MG CAP PO SCH ×3 (09:45→18:09)
[2017-04-06] MEDS: PANTOPRAZOLE SOD 20 MG DELAYED RELEASE TAB PO SCH (09:46)
[2017-04-06] MEDS: risperiDONE ODT 1 MG TAB PO SCH ×3 (09:46→18:09)
--- NOTE | 2017-04-06 10:05 | HHI.PYPN ---
Subjective Remarks Patient seen in day room with nurse Siena. Patient somewhat more alert focused slightly better color to her face. Though she still remains vigilant fearful tearful very aware of her surroundings. At time she appears to be responding to internal stimuli. She is compliant with the medications. Discussed this with the nurse referral patient may be better served on 2500. Patient states she is having some difficulty with stool control Review of Systems Except as stated in HPI: all other systems reviewed are Neg Objective Alert: Yes [place]: Person, Place Mood: Anxious, Depressed Affect: Other (increase range of motion intensity) Memory Intact: Comment (fair) Hallucinations: Auditory (command demanding intimidating) Delusions: Yes Delusion Type: Paranoid Suicidal: Ideation Homicidal: Ideation (denies) Insight/Judgment Very poor Vitals/IOs Vital Signs Date Time Temp Pulse Resp B/P (MAP) Pulse Ox O2 Delivery O2 Flow Rate FiO2 04/06/17 06:09 97.2 109 17 133/90 (104) 98 04/02/17 11:12 Room Air Assessment & Plan Problem List: (1) Schizophrenia, paranoid type ICD Codes: F20.0 - Paranoid schizophrenia Status: Chronic Assessment & Plan Estimated LOS: days patient continues somewhat psychotic delusional though it is softening. She showing some slight increase in insight though there continues with vigilance anxiety Justification for Cont. Inpt. At this time patient will decompensate the placed in a lower level of care Discharge Planning To be determined Jamin Benitez MD Apr 06, 2017 10:05
[2017-04-06 14:08] LABS: BACTERIA, URINE RARE /hpf; BLOOD, URINE NEG (NEG); GLUCOSE,URINE NEG (NEG); KETONE, URINE NEG (NEG); NITRITE,URINE NEG (NEG); PH, URINE 5.5 (5.0-8.5); SQUAMOUS EPITHELIAL CELL URINE 1 /hpf (0-5); URINE COLOR LIGHT-YELLOW (YELLW/STRAW)
[2017-04-06 14:09] LABS: COMMENT (UR) CULT NOT INDICATED; CULTURE IF INDICATED CULT NOT INDICATED
[2017-04-06 17:26] VITALS: BP 108/65; PULSE 68; RESP 20; TEMP 97.4
[2017-04-06] MEDS: BENZTROPINE MESYLATE 1 MG TAB PO SCH (21:29)
[2017-04-06 21:30] VITALS: BP 131/57; PULSE 66
[2017-04-07] MEDS: NYSTATIN 100,000 U/GM PWD 15 GM BTL TOPICAL SCH ×3 (05:56→22:00)
[2017-04-07 06:12] VITALS: BP 130/59; PULSE 52; RESP 15; TEMP 97.6; O2SAT 96
[2017-04-07] MEDS: PANTOPRAZOLE SOD 20 MG DELAYED RELEASE TAB PO SCH (09:00)
[2017-04-07] MEDS: REMOVE OLD PATCH T-DERMAL SCH (09:00)
[2017-04-07] MEDS: NICOTINE 21 MG/24 HR PATCH T-DERMAL SCH (09:00)
[2017-04-07] MEDS: ATORVASTATIN 10 MG TAB PO SCH (09:04)
[2017-04-07] MEDS: risperiDONE ODT 1 MG TAB PO SCH ×3 (09:04→17:16)
[2017-04-07] MEDS: GABAPENTIN 300 MG CAP PO SCH ×3 (09:04→17:16)
[2017-04-07] MEDS: CARVEDILOL 3.125 MG TAB PO SCH ×2 (09:04→20:53)
[2017-04-07 09:08] VITALS: BP 145/86; PULSE 94
--- NOTE | 2017-04-07 14:06 | HHI.PYPN ---
Subjective Remarks Patient was seen and case discussed with nursing. Patient remains symptomatic and is bothered by her auditory hallucinations. They are telling her to "Fluck me and everybody." Not command in nature. Patient says she feels sad and has fleeting suicidal thoughts. Her plan would be to run into traffic if she is released from the hospital. She says she has no plan or intent of hurting herself while here in the hospital. She is compliant with her medications and behaving well on the unit Objective Alert: Yes [place]: Person, Place Mood: Anxious, Depressed Affect: Other (increase range of motion intensity) Memory Intact: Comment (fair) Hallucinations: Auditory (not command, "Fluck me and you") Delusions: Yes Delusion Type: Paranoid Suicidal: Ideation Homicidal: Ideation (denies) Insight/Judgment poor Vitals/IOs Vital Signs Date Time Temp Pulse Resp B/P (MAP) Pulse Ox O2 Delivery O2 Flow Rate FiO2 04/07/17 09:08 94 145/86 (105) 04/07/17 06:12 97.6 15 96 Assessment & Plan Problem List: (1) Schizophrenia, paranoid type ICD Codes: F20.0 - Paranoid schizophrenia Status: Chronic Assessment & Plan Patient received invegga sustenna couple days ago. She should be due for her second dose 8 days after the first one. She is also on Risperdal at this time Justification for Cont. Inpt. Patient will decompensate in a less restrictive setting Osmar Leary DO Apr 07, 2017 14:06
[2017-04-07] MEDS: BENZTROPINE MESYLATE 1 MG TAB PO SCH (20:53)
[2017-04-08] MEDS: NYSTATIN 100,000 U/GM PWD 15 GM BTL TOPICAL SCH ×3 (05:30→22:00)
[2017-04-08 05:56] VITALS: BP 141/70; PULSE 56; RESP 17; TEMP 98.9; O2SAT 97
[2017-04-08] MEDS: REMOVE OLD PATCH T-DERMAL SCH (09:00)
[2017-04-08] MEDS: NICOTINE 21 MG/24 HR PATCH T-DERMAL SCH (09:00)
[2017-04-08] MEDS: CARVEDILOL 3.125 MG TAB PO SCH ×2 (10:19→20:54)
[2017-04-08] MEDS: PANTOPRAZOLE SOD 20 MG DELAYED RELEASE TAB PO SCH (10:19)
[2017-04-08] MEDS: risperiDONE ODT 1 MG TAB PO SCH ×3 (10:19→17:00)
[2017-04-08] MEDS: GABAPENTIN 300 MG CAP PO SCH ×3 (10:19→16:54)
[2017-04-08] MEDS: ATORVASTATIN 10 MG TAB PO SCH (10:19)
--- NOTE | 2017-04-08 11:47 | HHI.PYPN ---
Subjective Remarks Patient was seen and case discussed with nursing. Patient remains internally preoccupied with auditory hallucinations. He is looking about the room during the interview. Affect is anxious. No EPS as noted. Voices are telling her to get out of here. They are not telling her to hurt herself. She has fleeting suicidal thoughts with no ideation plan or intent. Objective Alert: Yes [place]: Person, Place Mood: Anxious, Depressed Affect: Other (increase range of motion intensity) Memory Intact: Comment (fair) Hallucinations: Auditory (not command, to get out of here) Delusions: Yes Delusion Type: Paranoid (internally preoccupied) Suicidal: Intent (denies), Plan (denies), Ideation (fleeting) Homicidal: Ideation (denies) Insight/Judgment Poor Vitals/IOs Vital Signs Date Time Temp Pulse Resp B/P (MAP) Pulse Ox O2 Delivery O2 Flow Rate FiO2 04/08/17 05:56 98.9 56 17 141/70 (93) 97 Intake and Output 04/08/17 04/08/17 04/08/17 07:59 15:59 23:59 Intake Total 480 ml Balance 480 ml Assessment & Plan Problem List: (1) Schizophrenia, paranoid type ICD Codes: F20.0 - Paranoid schizophrenia Status: Chronic Assessment & Plan Schedule second dose of invegga sustenna 8 days after the first. Consider increase in by mouth Risperdal Justification for Cont. Inpt. Patient will decompensate in a less restrictive setting Osmar Leary DO Apr 08, 2017 11:47
[2017-04-08 18:29] VITALS: BP 125/58; PULSE 67; RESP 18; TEMP 97.9; O2SAT 98
[2017-04-08] MEDS: BENZTROPINE MESYLATE 1 MG TAB PO SCH (20:55)
[2017-04-09 05:25] VITALS: BP 132/60; PULSE 69; RESP 17; TEMP 98.2
[2017-04-09] MEDS: NYSTATIN 100,000 U/GM PWD 15 GM BTL TOPICAL SCH ×3 (06:00→21:10)
[2017-04-09] MEDS: NICOTINE 21 MG/24 HR PATCH T-DERMAL SCH (09:00)
[2017-04-09] MEDS: REMOVE OLD PATCH T-DERMAL SCH (09:00)
[2017-04-09] MEDS: GABAPENTIN 300 MG CAP PO SCH ×3 (09:31→17:54)
[2017-04-09] MEDS: CARVEDILOL 3.125 MG TAB PO SCH ×2 (09:31→20:49)
[2017-04-09] MEDS: ATORVASTATIN 10 MG TAB PO SCH (09:31)
[2017-04-09] MEDS: PANTOPRAZOLE SOD 20 MG DELAYED RELEASE TAB PO SCH (09:32)
[2017-04-09] MEDS: risperiDONE ODT 1 MG TAB PO SCH ×2 (09:32→20:49)
--- NOTE | 2017-04-09 13:43 | HHI.PYPN ---
Subjective Remarks Patient seen in her bed with nurse Lissa and counselor Kayla. Chart reviewed. Patient compliant medications. She is complaining of multiple voices in her head it with him about her more demanding continues vague suicidal ideation. She states she is her the voices pretty much all of her life. She did state that Resporal did help her in the past for now will increase the oral Respinol to 2 mg twice a day Review of Systems Except as stated in HPI: all other systems reviewed are Neg Objective Alert: Yes [place]: Person, Place Mood: Anxious, Depressed Affect: Other (increase range of motion intensity) Memory Intact: Comment (fair) Hallucinations: Auditory (not command, to get out of here) Delusions: Yes Delusion Type: Paranoid (internally preoccupied) Suicidal: Intent (denies), Plan (denies), Ideation (fleeting) Homicidal: Ideation (denies) Insight/Judgment Poor Vitals/IOs Vital Signs Date Time Temp Pulse Resp B/P (MAP) Pulse Ox O2 Delivery O2 Flow Rate FiO2 04/09/17 05:25 98.2 69 17 132/60 (84) 04/08/17 18:29 98 Assessment & Plan Problem List: (1) Schizophrenia, paranoid type ICD Codes: F20.0 - Paranoid schizophrenia Status: Chronic Assessment & Plan Estimated LOS: days patient continue psychotic with multiple auditory hallucinations. Stephanie medication adjustment above Justification for Cont. Inpt. At this time patient will decompensate and placed in a lower level of care Discharge Planning To be determined Jamin Benitez MD Apr 09, 2017 13:43
[2017-04-09] MEDS: BENZTROPINE MESYLATE 1 MG TAB PO SCH (20:49)
[2017-04-09 21:16] VITALS: BP 130/61; PULSE 61; RESP 18; TEMP 99; O2SAT 97
[2017-04-10] MEDS: NYSTATIN 100,000 U/GM PWD 15 GM BTL TOPICAL SCH ×3 (05:44→22:01)
[2017-04-10 06:01] VITALS: BP 105/8; PULSE 74; RESP 16; TEMP 98.1; O2SAT 94
[2017-04-10] MEDS: REMOVE OLD PATCH T-DERMAL SCH (09:00)
[2017-04-10] MEDS: PANTOPRAZOLE SOD 20 MG DELAYED RELEASE TAB PO SCH (09:20)
[2017-04-10] MEDS: CARVEDILOL 3.125 MG TAB PO SCH ×2 (09:20→22:01)
[2017-04-10] MEDS: GABAPENTIN 300 MG CAP PO SCH ×3 (09:20→18:00)
[2017-04-10] MEDS: NICOTINE 21 MG/24 HR PATCH T-DERMAL SCH (09:20)
[2017-04-10] MEDS: risperiDONE ODT 1 MG TAB PO SCH ×2 (09:21→22:01)
[2017-04-10] MEDS: ATORVASTATIN 10 MG TAB PO SCH (09:21)
--- NOTE | 2017-04-10 10:21 | HHI.PYPN ---
Subjective Remarks Patient seen in her room in bed with counselor Kayla. Chart review. Patient compliant medication. Patient continues to complain of auditory hallucinations with vague suicidal ideation. Though she states the voices have somewhat diminished in intensity and intrusiveness. Review of Systems Except as stated in HPI: all other systems reviewed are Neg Objective Alert: Yes [place]: Person, Place Mood: Anxious, Depressed Affect: Other (increase range of motion intensity) Memory Intact: Comment (fair) Hallucinations: Auditory (not command, to get out of here) Delusions: Yes Delusion Type: Paranoid (internally preoccupied) Suicidal: Intent (denies), Plan (denies), Ideation (fleeting) Homicidal: Ideation (denies) Insight/Judgment Poor Vitals/IOs Vital Signs Date Time Temp Pulse Resp B/P (MAP) Pulse Ox O2 Delivery O2 Flow Rate FiO2 04/10/17 06:01 98.1 74 16 105/8 (40 94 Assessment & Plan Problem List: (1) Schizophrenia, paranoid type ICD Codes: F20.0 - Paranoid schizophrenia Status: Chronic Assessment & Plan Estimated LOS: days patient continues depressed and psychotic, compliant medications Justification for Cont. Inpt. At the present time patient will decompensate and placed in the lower level of care Discharge Planning To be determined Jamin Benitez MD Apr 10, 2017 10:21
[2017-04-10 17:10] VITALS: BP 138/89; PULSE 64; RESP 16; TEMP 98.6
[2017-04-10] MEDS: BENZTROPINE MESYLATE 1 MG TAB PO SCH (22:01)
[2017-04-11] MEDS: NYSTATIN 100,000 U/GM PWD 15 GM BTL TOPICAL SCH ×3 (06:24→20:15)
[2017-04-11 06:48] VITALS: BP 169/77; PULSE 60; RESP 16; TEMP 97.1; O2SAT 97
[2017-04-11] MEDS: GABAPENTIN 300 MG CAP PO SCH ×3 (08:37→17:58)
[2017-04-11] MEDS: NICOTINE 21 MG/24 HR PATCH T-DERMAL SCH (08:37)
[2017-04-11] MEDS: REMOVE OLD PATCH T-DERMAL SCH (08:38)
[2017-04-11] MEDS: CARVEDILOL 3.125 MG TAB PO SCH ×2 (08:38→20:11)
[2017-04-11] MEDS: PANTOPRAZOLE SOD 20 MG DELAYED RELEASE TAB PO SCH (08:38)
[2017-04-11] MEDS: ATORVASTATIN 10 MG TAB PO SCH (08:38)
[2017-04-11] MEDS: risperiDONE ODT 1 MG TAB PO SCH ×2 (08:38→20:12)
--- NOTE | 2017-04-11 11:47 | HHI.PYPN ---
Subjective Remarks Patient seen in her room with nurse Filomena and family practice resident robert , chart reviewed patient seen lying in bed. Holding her head. Complaining of the voices that are telling her to herself do bad things. Though she is vague about suicidality. Patient is compliant with her medications. This time we'll continue medications no change Review of Systems Except as stated in HPI: all other systems reviewed are Neg Objective Alert: Yes [place]: Person, Place Mood: Anxious, Depressed Affect: Other (increase range of motion intensity) Memory Intact: Comment (fair) Hallucinations: Auditory (not command, to get out of here) Delusions: Yes Delusion Type: Paranoid (internally preoccupied) Suicidal: Intent (denies), Plan (denies), Ideation (fleeting) Homicidal: Ideation (denies) Insight/Judgment Very poor Vitals/IOs Vital Signs Date Time Temp Pulse Resp B/P (MAP) Pulse Ox O2 Delivery O2 Flow Rate FiO2 04/11/17 06:48 97.1 60 16 169/77 (107) 97 Intake and Output 04/11/17 04/11/17 04/11/17 07:59 15:59 23:59 Intake Total 120 ml Balance 120 ml Assessment & Plan Problem List: (1) Schizophrenia, paranoid type ICD Codes: F20.0 - Paranoid schizophrenia Status: Chronic Assessment & Plan Estimated LOS: days patient continues psychotic delusional, vague suicidal ideation, compliant medications Justification for Cont. Inpt. At this time patient will decompensate if placed in the lower level of care Discharge Planning To be determined Jamin Benitez MD Apr 11, 2017 11:47
[2017-04-11 18:00] VITALS: BP 116/63; PULSE 64; RESP 18; TEMP 98.9; O2SAT 100
[2017-04-11] MEDS: BENZTROPINE MESYLATE 1 MG TAB PO SCH (20:11)
[2017-04-12] MEDS: ACETAMINOPHEN 325 MG TAB PO PRN ×2 (03:37→06:10)
[2017-04-12 05:50] VITALS: BP 134/69; PULSE 57; RESP 15; TEMP 98.3; O2SAT 96
[2017-04-12] MEDS: NYSTATIN 100,000 U/GM PWD 15 GM BTL TOPICAL SCH ×3 (06:00→20:40)
[2017-04-12] MEDS: NICOTINE 21 MG/24 HR PATCH T-DERMAL SCH (09:00)
[2017-04-12] MEDS: REMOVE OLD PATCH T-DERMAL SCH (09:00)
[2017-04-12] MEDS: GABAPENTIN 300 MG CAP PO SCH ×3 (09:30→17:35)
[2017-04-12] MEDS: ATORVASTATIN 10 MG TAB PO SCH (09:30)
[2017-04-12] MEDS: risperiDONE ODT 1 MG TAB PO SCH ×2 (09:30→20:40)
[2017-04-12] MEDS: CARVEDILOL 3.125 MG TAB PO SCH ×2 (09:30→20:39)
[2017-04-12] MEDS: PANTOPRAZOLE SOD 20 MG DELAYED RELEASE TAB PO SCH (09:30)
--- NOTE | 2017-04-12 11:08 | HHI.PYPN ---
Subjective Remarks Patient seen in dayroom with floor staff, chart review, patient compliant medications. Patient showing increase affect better eye contact and improved mood today while acknowledging continued voices she states there diminished day. She does denies suicidality today. For now continue treatment Review of Systems Except as stated in HPI: all other systems reviewed are Neg Objective Alert: Yes [place]: Person, Place Mood: Anxious, Depressed Affect: Other (increase range of motion intensity) Memory Intact: Comment (fair) Hallucinations: Auditory (not command, to get out of here) Delusions: Yes Delusion Type: Paranoid (internally preoccupied) Suicidal: Intent (denies), Plan (denies), Ideation (fleeting) Homicidal: Ideation (denies) Insight/Judgment Poor Vitals/IOs Vital Signs Date Time Temp Pulse Resp B/P (MAP) Pulse Ox O2 Delivery O2 Flow Rate FiO2 04/12/17 05:50 98.3 57 15 134/69 (90) 96 Intake and Output 04/12/17 04/12/17 04/12/17 07:59 15:59 23:59 Intake Total 0 ml Balance 0 ml Assessment & Plan Problem List: (1) Schizophrenia, paranoid type ICD Codes: F20.0 - Paranoid schizophrenia Status: Chronic Assessment & Plan Estimated LOS: days patient continues somewhat sad with auditory hallucinations but affect has improved somewhat. Voices are somewhat decreased Justification for Cont. Inpt. At this time patient will decompensate with placed in a lower level of care Discharge Planning To be determined Jamin Benitez MD Apr 12, 2017 11:08
[2017-04-12 18:04] VITALS: BP 157/78; PULSE 63; RESP 16; TEMP 97
[2017-04-12] MEDS: BENZTROPINE MESYLATE 1 MG TAB PO SCH (20:40)
[2017-04-13 05:55] VITALS: BP 135/62; PULSE 53; RESP 17; TEMP 97.9; O2SAT 95
[2017-04-13] MEDS: NICOTINE 21 MG/24 HR PATCH T-DERMAL SCH (09:00)
[2017-04-13] MEDS: REMOVE OLD PATCH T-DERMAL SCH (09:00)
[2017-04-13] MEDS: GABAPENTIN 300 MG CAP PO SCH ×3 (10:02→17:51)
[2017-04-13] MEDS: PANTOPRAZOLE SOD 20 MG DELAYED RELEASE TAB PO SCH (10:02)
[2017-04-13] MEDS: CARVEDILOL 3.125 MG TAB PO SCH ×2 (10:02→22:48)
[2017-04-13] MEDS: ATORVASTATIN 10 MG TAB PO SCH (10:02)
[2017-04-13] MEDS: risperiDONE ODT 1 MG TAB PO SCH (10:02)
[2017-04-13] MEDS: ACETAMINOPHEN 325 MG TAB PO PRN (10:07)
--- NOTE | 2017-04-13 10:27 | HHI.PYPN ---
Subjective Remarks Patient seen in day room with nurse Rosi and counselor Kayla. Chart reviewed. Patient compliant medication. Patient somewhat more vigilant today. 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 Though she vaguely denies suicidality. Her eye contact is decreased today. Her affect is decreased today. Will increase Respinol to 2 mg a.m. 3 mg at bedtime Review of Systems Except as stated in HPI: all other systems reviewed are Neg Objective Alert: Yes [place]: Person, Place Mood: Anxious, Depressed Affect: Other (increase range of motion intensity) Memory Intact: Comment (fair) Hallucinations: Auditory (not command, to get out of here) Delusions: Yes Delusion Type: Paranoid (internally preoccupied) Suicidal: Intent (denies), Plan (denies), Ideation (fleeting) Homicidal: Ideation (denies) Insight/Judgment Poor Vitals/IOs Vital Signs Date Time Temp Pulse Resp B/P (MAP) Pulse Ox O2 Delivery O2 Flow Rate FiO2 04/13/17 05:55 97.9 53 17 135/62 (86) 95 Intake and Output 04/13/17 04/13/17 04/14/17 08:00 16:00 00:00 Intake Total 0 ml Balance 0 ml Assessment & Plan Problem List: (1) Schizophrenia, paranoid type ICD Codes: F20.0 - Paranoid schizophrenia Status: Chronic Assessment & Plan Estimated LOS: days patient continues psychotic with persistent auditory hallucinations, with a decreased affect today also. She medication adjustment above Justification for Cont. Inpt. At this time patient will decompensate the placed in a lower level of care Discharge Planning To be determined Jamin Benitez MD Apr 13, 2017 10:27
[2017-04-13] MEDS: NYSTATIN 100,000 U/GM PWD 15 GM BTL TOPICAL SCH ×3 (14:00→22:48)
[2017-04-13] MEDS: risperiDONE ODT 3 MG TAB PO SCH (22:47)
[2017-04-13] MEDS: BENZTROPINE MESYLATE 1 MG TAB PO SCH (22:48)
[2017-04-14] MEDS: NYSTATIN 100,000 U/GM PWD 15 GM BTL TOPICAL SCH ×3 (06:29→22:49)
[2017-04-14 07:12] VITALS: BP 146/64; PULSE 75; RESP 18; TEMP 99; O2SAT 97
[2017-04-14] MEDS: REMOVE OLD PATCH T-DERMAL SCH (09:00)
[2017-04-14] MEDS: NICOTINE 21 MG/24 HR PATCH T-DERMAL SCH (09:00)
[2017-04-14] MEDS: risperiDONE ODT 2 MG TAB PO SCH (10:12)
[2017-04-14] MEDS: ATORVASTATIN 10 MG TAB PO SCH (10:12)
[2017-04-14] MEDS: GABAPENTIN 300 MG CAP PO SCH ×3 (10:12→18:18)
[2017-04-14] MEDS: CARVEDILOL 3.125 MG TAB PO SCH ×2 (10:12→22:22)
[2017-04-14] MEDS: PANTOPRAZOLE SOD 20 MG DELAYED RELEASE TAB PO SCH (10:12)
--- NOTE | 2017-04-14 11:31 | HHI.PYPN ---
Subjective Remarks Met with patient, reviewed her labs and discuss case with mental health tech. She remains paranoid. Review of Systems Except as stated in HPI: all other systems reviewed are Neg Objective Alert: Yes [place]: Person, Place Mood: Anxious, Depressed Affect: Other (increase range of motion intensity) Memory Intact: Comment (fair) Hallucinations: Auditory (not command, to get out of here) Delusions: Yes Delusion Type: Paranoid (internally preoccupied) Suicidal: Intent (denies), Plan (denies), Ideation (fleeting) Homicidal: Ideation (denies) Insight/Judgment Impaired Vitals/IOs Vital Signs Date Time Temp Pulse Resp B/P (MAP) Pulse Ox O2 Delivery O2 Flow Rate FiO2 04/14/17 07:12 99.0 75 18 146/64 (91) 97 Assessment & Plan Problem List: (1) Schizophrenia, paranoid type ICD Codes: F20.0 - Paranoid schizophrenia Status: Chronic Assessment & Plan Estimated LOS: days will continue to evaluate titration of Risperdal. Assess for efficacy and tolerability. Justification for Cont. Inpt. Unable to care for herself. Markos Thomas MD Apr 14, 2017 11:31
[2017-04-14 18:25] VITALS: BP 145/89; PULSE 97; RESP 18; TEMP 97.7
[2017-04-14] MEDS: BENZTROPINE MESYLATE 1 MG TAB PO SCH (22:23)
[2017-04-14] MEDS: risperiDONE ODT 3 MG TAB PO SCH (22:23)
[2017-04-14] MEDS: ACETAMINOPHEN 325 MG TAB PO PRN (22:49)
[2017-04-15] MEDS: NYSTATIN 100,000 U/GM PWD 15 GM BTL TOPICAL SCH ×3 (05:37→22:00)
[2017-04-15 06:47] VITALS: BP 127/57; PULSE 60; RESP 18; TEMP 98; O2SAT 96
[2017-04-15] MEDS: NICOTINE 21 MG/24 HR PATCH T-DERMAL SCH (09:00)
[2017-04-15] MEDS: REMOVE OLD PATCH T-DERMAL SCH (09:00)
[2017-04-15] MEDS: GABAPENTIN 300 MG CAP PO SCH ×3 (09:50→18:42)
[2017-04-15] MEDS: CARVEDILOL 3.125 MG TAB PO SCH ×2 (09:50→22:17)
[2017-04-15] MEDS: ATORVASTATIN 10 MG TAB PO SCH (09:50)
[2017-04-15] MEDS: risperiDONE ODT 2 MG TAB PO SCH (09:51)
[2017-04-15] MEDS: PANTOPRAZOLE SOD 20 MG DELAYED RELEASE TAB PO SCH (09:51)
--- NOTE | 2017-04-15 13:08 | HHI.PYPN ---
Subjective Remarks Patient seen and case discussed with staff. She remains paranoid but is tolerating the increased dose of Risperdal. Review of Systems Except as stated in HPI: all other systems reviewed are Neg Objective Alert: Yes [place]: Person, Place Mood: Anxious, Depressed Affect: Other (increase range of motion intensity) Memory Intact: Comment (fair) Hallucinations: Auditory (not command, to get out of here) Delusions: Yes Delusion Type: Paranoid (internally preoccupied) Suicidal: Intent (denies), Plan (denies), Ideation (fleeting) Homicidal: Ideation (denies) Insight/Judgment Impaired Vitals/IOs Vital Signs Date Time Temp Pulse Resp B/P (MAP) Pulse Ox O2 Delivery O2 Flow Rate FiO2 04/15/17 06:47 98.0 60 18 127/57 (80) 96 Assessment & Plan Problem List: (1) Schizophrenia, paranoid type ICD Codes: F20.0 - Paranoid schizophrenia Status: Chronic Assessment & Plan Estimated LOS: days patient remains paranoid but is less adamant about suicidal thinking. Tolerating Risperdal. Plan to continue current dose of Risperdal. Justification for Cont. Inpt. Unable to care for self. Markos Thomas MD Apr 15, 2017 13:08
[2017-04-15 16:35] VITALS: BP 133/60; PULSE 58; RESP 18; TEMP 97.3; O2SAT 99
[2017-04-15] MEDS: BENZTROPINE MESYLATE 1 MG TAB PO SCH (22:17)
[2017-04-15] MEDS: risperiDONE ODT 3 MG TAB PO SCH (22:17)
[2017-04-16 06:00] VITALS: BP 132/82; PULSE 69; RESP 18; TEMP 96.8; O2SAT 98
[2017-04-16] MEDS: NYSTATIN 100,000 U/GM PWD 15 GM BTL TOPICAL SCH ×3 (06:00→21:50)
--- NOTE | 2017-04-16 07:07 | HHI.PYPN ---
Subjective Remarks Patient seen and examined. Chart reviewed. Case d/w RN: No crying spells. Slept off and on overnight. On my examination today, patient complains of voices saying that "I'm a boy, and I'm not, I'm a girl." No CAH. Remains a little paranoid. Denies side effects from meds. Complains of rectal pain but is reportedly having regular BMs with consistency of peanut butter. No other physical complaints. Review of Systems ROS Limitations: Poor Historian Except as stated in HPI: all other systems reviewed are Neg Objective Alert: Yes [place]: Person, Place Mood: Anxious Affect: Blunted Memory Intact: Comment (Not assessed) Hallucinations: Auditory (ongoing, as above) Delusions: Yes Delusion Type: Paranoid Suicidal: Ideation (No SI) Homicidal: Ideation (No HI) Insight/Judgment Poor Remarks No motor abnormalities noted Labs Labs reviewed. No recent labs. Vitals/IOs Vital Signs Date Time Temp Pulse Resp B/P (MAP) Pulse Ox O2 Delivery O2 Flow Rate FiO2 04/16/17 06:00 96.8 69 18 132/82 (99) 98 Assessment & Plan Problem List: (1) Schizophrenia, paranoid type ICD Codes: F20.0 - Paranoid schizophrenia Status: Chronic Assessment & Plan Continue oral Risperdal titration to target psychosis. Consult to the hospitalist for complaints of rectal pain. Continue to monitor on the inpatient unit. Continue other medications and care as ordered. Justification for Cont. Inpt. Med changes. Risk for decompensation. Discharge Planning Per Dr. Benitez. Camilo Aguayo MD Apr 16, 2017 07:07
[2017-04-16] MEDS ORDERED: PILL SPLITTER OTHER PRN (08:45)
[2017-04-16] MEDS: NICOTINE 21 MG/24 HR PATCH T-DERMAL SCH (09:00)
[2017-04-16] MEDS: REMOVE OLD PATCH T-DERMAL SCH ×2 (09:00→13:51)
[2017-04-16] MEDS: CARVEDILOL 3.125 MG TAB PO SCH ×2 (09:55→21:50)
[2017-04-16] MEDS: PANTOPRAZOLE SOD 20 MG DELAYED RELEASE TAB PO SCH (09:55)
[2017-04-16] MEDS: GABAPENTIN 300 MG CAP PO SCH ×3 (09:55→18:16)
[2017-04-16] MEDS: ATORVASTATIN 10 MG TAB PO SCH (09:55)
[2017-04-16] MEDS: risperiDONE ODT 1 MG TAB PO SCH (09:58)
--- NOTE | 2017-04-16 12:58 | PD.CONS ---
HPI Service [facility] Consult Requested By Dr. Aguayo Reason for Consult Rectal pain Primary Care Physician Florence Stout MD Diagnoses: History of Present Illness This is a 56-year-old female with a history of internal hemorrhoids and fissure who is complaining of rectal pain. [facility] reconsult to due to rectal pain. Patient stated that she had rectal pain for several years. Described as being intermittent. Patient stated that she had her rectal pain evaluated years ago and she was told that she had hemorrhoids and fissures. Denied any bleeding or itchiness in the rectum. I dealt with patient's nurse and she stated that patient has never complained of rectal pain to her. Patient has regular bowel movements. No other concerns. Past Family Social History Allergies: Coded Allergies: Benzodiazepines (Verified Allergy, Severe, 04/05/17) Per [place], [place] [phone]. buspirone (Unverified Allergy, Severe, HEART RACES, 04/02/17) doxycycline (Unverified Allergy, Severe, 04/02/17) minocycline (Unverified Allergy, Severe, 04/02/17) tigecycline (Unverified Allergy, Severe, 04/02/17) diphenhydramine (Unverified Allergy, Intermediate, hives, 04/02/17) diazepam (Unverified Allergy, Mild, HEART RACES, 04/02/17) Penicillins (Verified Allergy, Unknown, 04/02/17) [place], [place] [phone]. Sulfa (Sulfonamide Antibiotics) (Verified Allergy, Unknown, 04/02/17) [place], [place] [phone]. Tetracyclines (Verified Allergy, Unknown, 04/02/17) [place], [place] [phone]. erythromycin base (Unverified Allergy, Unknown, 04/02/17) penicillin V (Unverified Allergy, Unknown, 04/02/17) bupropion (Unverified Adverse Reaction, Intermediate, suicidal, 04/02/17) mometasone furoate (Unverified Adverse Reaction, Intermediate, NOSE BLEED , 04/02/17) ziprasidone (Unverified Adverse Reaction, Intermediate, tremor, 04/02/17) onion (Unverified Adverse Reaction, Mild, emesis, 04/02/17) Uncoded Allergies: MYCINS (Allergy, Severe, 10/19/08) CITRUS (Allergy, Mild, Blader infection , 12/12/11) Macrolides (Allergy, Unknown, 04/02/17) Per Pharmacist - [place], [place] [phone]. Quinines (Allergy, Unknown, 04/02/17) Per Pharmacist - [place], [place] [phone]. Past Medical History Hypertension GERD CAD COPD Tobacco abuse Paranoid schizophrenia Neuropathy Hyperlipidemia Chronic back and neck pain Past Surgical History Cholecystectomy Reported Medications Invega Sustenna Inj (Paliperidone Palmitate) 234 Mg/1.5 Ml Inj 234 Mg IM [id number] [Nizoral Cream] TOPICAL Atrovent HFA 12.9 GM Inh (Ipratropium Hanson) 17 Mcg/Actuation Aer 1 Puff INH QID PRN Clonazepam 1 Mg Tab 1 Mg PO TID PRN Atorvastatin (Atorvastatin Calcium) 10 Mg Tab 10 Mg PO DAILY Ventolin Hfa 18 GM Inh (Albuterol Sulfate) 90 Mcg/Act Aer 2 Puff INH Q6H PRN Gabapentin 300 Mg Cap 300 Mg PO TID Carvedilol 3.125 Mg Tab 3.125 Mg PO BID Omeprazole 20 Mg Tab 20 Mg PO DAILY Benztropine (Benztropine Mesylate) 0.5 Mg Tab 1 Mg PO HS Hydroxyzine Pamoate 50 Mg Cap 50 Mg PO TID Active Ordered Medications Current Medications Lorazepam (Ativan) 1 mg Q6H PRN PO MODERATE TO SEVERE ANXIETY Last administered on 04/04/17t 01:17; Start 04/02/17 at 12:45; Status Future Hold Lorazepam (Ativan Inj) 1 mg Q6H PRN IM MODERATE TO SEVERE ANXIETY; Start at 12:45; Status Future Hold Lorazepam (Ativan) 0.5 mg Q12H PRN PO MODERATE TO SEVERE ANXIETY; Start at 12:45; Status UNV Lorazepam (Ativan Inj) 0.5 mg Q12H PRN IM MODERATE TO SEVERE ANXIETY; Start at 12:45; Status UNV Acetaminophen (Tylenol) 650 mg Q4H PRN PO Pain 1-5 or Temp >101F; Start at 12:45; Stop 04/03/17 at 16:15; Status DC Magnesium Hydroxide (Milk Of Magnesia Liq) 30 ml DAILY PRN PO CONSTIPATION; Start 04/02/17 at 12:45; Stop 04/03/17 at 16:17; Status DC Al Hydrox/Mg Hydrox/Simethicone (Mag-Al Plus Susp Liq) 30 ml Q6H PRN PO DYSPEPSIA; Start 04/02/17 at 12:45; Stop 04/03/17 at 16:16; Status DC Nicotine (Habitrol 21 Mg Patch.24 Hr) 1 patch DAILY T-DERMAL Last administered on 04/16/17 09:00; Start 04/02/17 at 14:45 Miscellaneous Information 1 DAILY T-DERMAL Last administered on 04/16/17 09:00 ; Start 04/03/17 at 09:00 Albuterol/ Ipratropium (Duoneb Neb) 1 ampule Q6HR WHILE AWAKE NEB NEB Last administered on 04/04/17 18:54; Start 04/02/17 at 20:00; Stop 04/06/17 at 19:59 ; Status DC Albuterol/ Ipratropium (Duoneb Neb) 1 ampule Q4HR NEB PRN NEB WHEEZING; Start 04/02/17 at 14:45 Albuterol Sulfate (Proair Hfa Inh) 2 puff Q6H PRN INH SHORTNESS OF BREATH; Start 04/02/17 at 14:45 Atorvastatin Calcium (Lipitor) 10 mg DAILY PO Last administered on 04/16/17 09 :55; Start 04/03/17 at 09:00 Carvedilol (Coreg) 3.125 mg BID PO Last administered on 04/16/17 09:55; Start 04/02/17 at 21:00 Gabapentin (Neurontin) 300 mg TID PO Last administered on 04/16/17 09:55; Start 04/02/17 at 18:00 Ipratropium Hanson (Atrovent Hfa Inh) 1 puff QID PRN INH SHORTNESS OF BREATH; Start 04/02/17 at 14:45; Stop 04/02/17 at 15:18; Status DC Pantoprazole Sodium (Protonix) 20 mg DAILY PO Last administered on 04/16/17 09 :55; Start 04/03/17 at 09:00 Nystatin (Mycostatin Powder) 1 applic Q8HR TOPICAL Last administered on 14:00; Start 04/02/17 at 16:00 Risperidone (risperDAL M-TAB) 1 mg Q12HR PO Last administered on 04/05/17 09: 36; Start 04/03/17 at 21:00; Stop 04/05/17 at 13:58; Status DC Acetaminophen (Tylenol) 650 mg Q4H PRN PO Pain 1-5 or Temp >101F Last administered on 04/14/17 22:49; Start 04/03/17 at 15:45 Magnesium Hydroxide (Milk Of Magnesia Liq) 30 ml DAILY PRN PO CONSTIPATION; Start 04/03/17 at 15:45 Al Hydrox/Mg Hydrox/Simethicone (Mag-Al Plus Susp Liq) 30 ml Q6H PRN PO DYSPEPSIA; Start 04/03/17 at 15:45 Benztropine Mesylate (Cogentin) 1 mg HS PO Last administered on 04/15/17 22:17 ; Start 04/03/17 at 21:00 Paliperidone Palmitate (Invega Sustenna Inj) 234 mg Q28D IM Last administered on 04/03/17 19:55; Start 04/03/17 at 17:00 Risperidone (risperDAL M-TAB) 1 mg TID PO Last administered on 04/09/17 09:32; Start 04/05/17 at 18:00; Stop 04/09/17 at 13:40; Status DC Risperidone (risperDAL M-TAB) 2 mg BID PO Last administered on 04/13/17 10:02; Start 04/09/17 at 21:00; Stop 04/13/17 at 10:24; Status DC Risperidone (risperDAL M-TAB) 2 mg DAILY PO Last administered on 04/15/17 09: 51; Start 04/14/17 at 09:00; Stop 04/16/17 at 08:40; Status DC Risperidone (risperDAL M-TAB) 3 mg HS PO Last administered on 04/15/17 22:17; Start 04/13/17 at 21:00 Risperidone (risperDAL M-TAB) 2.5 mg DAILY PO Last administered on 04/16/17 09 :58; Start 04/16/17 at 09:00 Miscellaneous (Pill Splitter) 1 ea UNSCH PRN OTHER SEE LABEL COMMENTS Last administered on 04/16/17 09:58; Start 04/16/17 at 08:45 Family History Grandmother and maternal family medical history significant for "lung disease". Social History smokes 2 ppd tobacco. Denies any alcohol use. Denies any illicit drug use. Physical Exam Vital Signs Vital Signs Date Time Temp Pulse Resp B/P (MAP) Pulse Ox O2 Delivery O2 Flow Rate FiO2 04/16/17 06:00 96.8 69 18 132/82 (99) 98 04/15/17 16:35 97.3 58 18 133/60 (84) 99 Physical Exam GENERAL: This is a well-nourished, well-developed patient, in no apparent distress. SKIN: No rashes, ecchymoses or lesions. Cool and dry. HEAD: Atraumatic. Normocephalic. No temporal or scalp tenderness. EYES: Pupils equal round and reactive. Extraocular motions intact. No scleral icterus. No injection or drainage. ENT: Nose without bleeding, purulent drainage or septal hematoma. Throat without erythema, tonsillar hypertrophy or exudate. Uvula midline. Airway patent. NECK: Trachea midline. No JVD or lymphadenopathy. Supple, nontender, no meningeal signs. CARDIOVASCULAR: Regular rate and rhythm without murmurs, gallops, or rubs. RESPIRATORY: Clear to auscultation. Breath sounds equal bilaterally. No wheezes , rales, or rhonchi. GASTROINTESTINAL: Abdomen soft, non-tender, nondistended. No hepato-splenomegaly , or palpable masses. No guarding. MUSCULOSKELETAL: Extremities without clubbing, cyanosis, or edema. No joint tenderness, effusion, or edema noted. No calf tenderness. Negative Homans sign bilaterally. NEUROLOGICAL: Awake and alert. Cranial nerves II through XII intact. Motor and sensory grossly within normal limits. Five out of 5 muscle strength in all muscle groups. Normal speech. Rectal: Noticed skin tags. Rectal exam was done and patient had no pain during rectal exam. No blood noted grossly in stools. Good rectal muscle tone. Assessment and Plan Assessment and Plan 56-year-old female with past nuchal history of rectal pain secondary to fissure and hemorrhoids Rectal pain -This is chronic and currently patient is not displaying any signs of pain. During rectal examination she also had no pain so doubt that this is due to her fissures. -Recommend to treat constipation if patient is constipated. -Encouraged to increase fluid intake. -Otherwise patient can follow with her PCP or GI physician as outpatient. Discussed Condition With Patient's nurse and patient Margaret Lopez MD Apr 16, 2017 12:57
[2017-04-16] MEDS: risperiDONE ODT 3 MG TAB PO SCH (21:50)
[2017-04-16] MEDS: BENZTROPINE MESYLATE 1 MG TAB PO SCH (21:50)
[2017-04-17 06:00] VITALS: BP 133/89; PULSE 68; RESP 17; TEMP 98.4; O2SAT 96
[2017-04-17] MEDS: NYSTATIN 100,000 U/GM PWD 15 GM BTL TOPICAL SCH ×3 (06:00→22:00)
[2017-04-17] MEDS: GABAPENTIN 300 MG CAP PO SCH ×3 (09:00→17:57)
[2017-04-17] MEDS: risperiDONE ODT 1 MG TAB PO SCH (09:00)
[2017-04-17] MEDS: ATORVASTATIN 10 MG TAB PO SCH (09:00)
[2017-04-17] MEDS: PANTOPRAZOLE SOD 20 MG DELAYED RELEASE TAB PO SCH (09:00)
[2017-04-17] MEDS: NICOTINE 21 MG/24 HR PATCH T-DERMAL SCH (09:00)
[2017-04-17] MEDS: CARVEDILOL 3.125 MG TAB PO SCH ×2 (09:00→22:02)
--- NOTE | 2017-04-17 14:03 | HHI.PYPN ---
Subjective Remarks Patient seen in her room with nurse Alyssa and counselor Kayla. Chart reviewed. Patient compliant medication. Patient continues to state persistent auditory hallucinations they have not significantly changed. She also states that she has had auditory hallucinations much of her adult life, she is unsure if any medication never really resolved them. She also acknowledges vague suicidality stating that she has had thoughts of choking herself. (Patient grabbing the neck of her patient down and twisting is slightly) however she then stated that she would like to be discharged. And that she'll be okay. When I challenge this contradiction she looked at me smiled and charcoaled. For now continue treatment Review of Systems Except as stated in HPI: all other systems reviewed are Neg Objective Alert: Yes [place]: Person, Place Mood: Anxious Affect: Blunted Memory Intact: Comment (Not assessed) Hallucinations: Auditory (ongoing, as above) Delusions: Yes Delusion Type: Paranoid Suicidal: Ideation (No SI) Homicidal: Ideation (No HI) Insight/Judgment Very poor Vitals/IOs Vital Signs Date Time Temp Pulse Resp B/P (MAP) Pulse Ox O2 Delivery O2 Flow Rate FiO2 04/17/17 06:00 98.4 68 17 133/89 (104) 96 Assessment & Plan Problem List: (1) Schizophrenia, paranoid type ICD Codes: F20.0 - Paranoid schizophrenia Status: Chronic Assessment & Plan Estimated LOS: days patient continue somewhat psychotic depressed vague suicidal ideation. However I do also questionable that may be a degree of manipulation with this because patient is somewhat contradictory about her living situation. For now continue treatment Justification for Cont. Inpt. At this time patient decompensate the placed in the lower level of care Discharge Planning To be determined Jamin Benitez MD Apr 17, 2017 14:03
[2017-04-17 18:13] VITALS: BP 133/60; PULSE 58; RESP 18; TEMP 97.3; O2SAT 98
[2017-04-17] MEDS: BENZTROPINE MESYLATE 1 MG TAB PO SCH (22:02)
[2017-04-17] MEDS: risperiDONE ODT 3 MG TAB PO SCH (22:02)
[2017-04-18] MEDS: NYSTATIN 100,000 U/GM PWD 15 GM BTL TOPICAL SCH ×3 (06:12→20:52)
[2017-04-18 06:28] VITALS: BP 131/71; PULSE 70; RESP 18; TEMP 97.6; O2SAT 95
[2017-04-18] MEDS: NICOTINE 21 MG/24 HR PATCH T-DERMAL SCH (09:00)
[2017-04-18] MEDS: REMOVE OLD PATCH T-DERMAL SCH (09:00)
[2017-04-18] MEDS: PANTOPRAZOLE SOD 20 MG DELAYED RELEASE TAB PO SCH (09:22)
[2017-04-18] MEDS: GABAPENTIN 300 MG CAP PO SCH ×3 (09:22→17:13)
[2017-04-18] MEDS: risperiDONE ODT 1 MG TAB PO SCH (09:22)
[2017-04-18] MEDS: CARVEDILOL 3.125 MG TAB PO SCH ×2 (09:23→20:52)
[2017-04-18] MEDS: ATORVASTATIN 10 MG TAB PO SCH (09:24)
--- NOTE | 2017-04-18 14:34 | HHI.PYPN ---
Subjective Remarks Patient seen on unit with floor staff, discussed with nurse, compliant medications. Patient times to show some anxiety at times appears to be incongruent with her affect when discussing possible auditory hallucinations and suicidality. However the she does seem a little more anxious and irritable at times well start Ativan 0.5 mg every 6 hours when necessary anxiety Review of Systems Except as stated in HPI: all other systems reviewed are Neg Objective Alert: Yes [place]: Person, Place Mood: Anxious Affect: Blunted Memory Intact: Comment (Not assessed) Hallucinations: Auditory (ongoing, as above) Delusions: Yes Delusion Type: Paranoid Suicidal: Ideation (No SI) Homicidal: Ideation (No HI) Insight/Judgment Very poor Vitals/IOs Vital Signs Date Time Temp Pulse Resp B/P (MAP) Pulse Ox O2 Delivery O2 Flow Rate FiO2 04/18/17 06:28 97.6 70 18 131/71 (91) 95 Intake and Output 04/18/17 04/18/17 04/19/17 08:00 16:00 00:00 Intake Total 0 ml Balance 0 ml Assessment & Plan Problem List: (1) Schizophrenia, paranoid type ICD Codes: F20.0 - Paranoid schizophrenia Status: Chronic Assessment & Plan Estimated LOS: days patient continue somewhat psychotic paranoid, continues vague about voices. She medication adjustment above Justification for Cont. Inpt. At this time patient will decompensate placed in a lower level of care Discharge Planning To be determined Jamin Benitez MD Apr 18, 2017 14:34
[2017-04-18 17:41] VITALS: BP_SYST 183; PULSE 92; RESP 17; TEMP 98.4; O2SAT 96
[2017-04-18] MEDS: LORazepam 1 MG TAB PO PRN (17:44)
[2017-04-18 20:30] VITALS: BP 115/63
[2017-04-18] MEDS: risperiDONE ODT 3 MG TAB PO SCH (20:52)
[2017-04-18] MEDS: BENZTROPINE MESYLATE 1 MG TAB PO SCH (20:52)
[2017-04-18] MEDS: ACETAMINOPHEN 325 MG TAB PO PRN (20:53)
[2017-04-19] MEDS: NYSTATIN 100,000 U/GM PWD 15 GM BTL TOPICAL SCH ×3 (06:00→21:14)
[2017-04-19 06:52] VITALS: BP 129/65; PULSE 79; RESP 16; TEMP 98.8; O2SAT 97
[2017-04-19] MEDS: REMOVE OLD PATCH T-DERMAL SCH (09:00)
[2017-04-19] MEDS: PANTOPRAZOLE SOD 20 MG DELAYED RELEASE TAB PO SCH (09:00)
[2017-04-19] MEDS: risperiDONE ODT 1 MG TAB PO SCH (09:00)
[2017-04-19] MEDS: NICOTINE 21 MG/24 HR PATCH T-DERMAL SCH (09:00)
[2017-04-19] MEDS: GABAPENTIN 300 MG CAP PO SCH ×3 (09:00→16:55)
[2017-04-19] MEDS: ATORVASTATIN 10 MG TAB PO SCH (09:00)
[2017-04-19] MEDS: CARVEDILOL 3.125 MG TAB PO SCH ×2 (09:02→21:14)
--- NOTE | 2017-04-19 15:37 | HHI.PYPN ---
Subjective Remarks Patient seen in her room with nurse , chart reviewed, patient compliant medication. She continues to complain of significant auditory hallucinations with command nature letter intrusive and frightening. She is vague about suicidality. Today will increase Respinol to 3 mg a.m. 4 mg at bedtime Review of Systems Except as stated in HPI: all other systems reviewed are Neg Objective Alert: Yes [place]: Person, Place Mood: Anxious Affect: Blunted Memory Intact: Comment (Not assessed) Hallucinations: Auditory (ongoing, as above) Delusions: Yes Delusion Type: Paranoid Suicidal: Ideation (No SI) Homicidal: Ideation (No HI) Insight/Judgment Poor Vitals/IOs Vital Signs Date Time Temp Pulse Resp B/P (MAP) Pulse Ox O2 Delivery O2 Flow Rate FiO2 04/19/17 06:52 98.8 79 16 129/65 (86) 97 Intake and Output 04/19/17 04/19/17 04/20/17 08:00 16:00 00:00 Intake Total 0 ml 480 ml Balance 0 ml 480 ml Assessment & Plan Problem List: (1) Schizophrenia, paranoid type ICD Codes: F20.0 - Paranoid schizophrenia Status: Chronic Assessment & Plan Estimated LOS: days patient continues psychotic with command auditory hallucinations she medication adjustment above Justification for Cont. Inpt. Patient is quite psychotic with auditory hallucinations at this time patient decompensate the placed in a lower level of care Discharge Planning To be determined Jamin Benitez MD Apr 19, 2017 15:37
[2017-04-19 18:16] VITALS: BP 129/70; PULSE 85; RESP 16; TEMP 98.7; O2SAT 95
[2017-04-19] MEDS: BENZTROPINE MESYLATE 1 MG TAB PO SCH (21:14)
[2017-04-19] MEDS: risperiDONE ODT 2 MG TAB PO SCH (21:14)
[2017-04-19] MEDS: LORazepam 1 MG TAB PO PRN (21:14)
[2017-04-20] MEDS: NYSTATIN 100,000 U/GM PWD 15 GM BTL TOPICAL SCH ×3 (05:26→20:57)
[2017-04-20 05:43] VITALS: BP 125/60; PULSE 61; RESP 17; TEMP 97.3
[2017-04-20] MEDS: ATORVASTATIN 10 MG TAB PO SCH (09:00)
[2017-04-20] MEDS: PANTOPRAZOLE SOD 20 MG DELAYED RELEASE TAB PO SCH (09:00)
[2017-04-20] MEDS: NICOTINE 21 MG/24 HR PATCH T-DERMAL SCH (09:00)
[2017-04-20] MEDS: CARVEDILOL 3.125 MG TAB PO SCH ×2 (09:00→20:42)
[2017-04-20] MEDS: risperiDONE ODT 1 MG TAB PO SCH (09:00)
[2017-04-20] MEDS: GABAPENTIN 300 MG CAP PO SCH ×3 (09:00→18:00)
[2017-04-20] MEDS: REMOVE OLD PATCH T-DERMAL SCH (09:00)
--- NOTE | 2017-04-20 11:50 | HHI.PYPN ---
Subjective Remarks Patient seen in [place] with nurse of misha Rainey and counselor bereavement. Patient more ambulatory alert focused stated in the voices have diminished. She is starting to discuss discharge with us. Though there is still confusing as to what her support group as of the community she is vague about her if he is alive or , she is vague about the role her sister placing her life. That appear she is a small apartment in a senior citizens building. Patient is improving playfulness to get further verification about the care and assistance may be given by her sister. I feel the still high risk if she goes to her own apartment without any support. She does state voices persist but are diminished. Consul continue to work on verify placement issues Review of Systems Except as stated in HPI: all other systems reviewed are Neg Objective Alert: Yes [place]: Person, Place Mood: Anxious Affect: Blunted Memory Intact: Comment (Not assessed) Hallucinations: Auditory (ongoing, as above) Delusions: Yes Delusion Type: Paranoid Suicidal: Ideation (No SI) Homicidal: Ideation (No HI) Insight/Judgment Poor Vitals/IOs Vital Signs Date Time Temp Pulse Resp B/P (MAP) Pulse Ox O2 Delivery O2 Flow Rate FiO2 04/20/17 05:43 97.3 61 17 125/60 (81) 04/19/17 18:16 95 Assessment & Plan Problem List: (1) Schizophrenia, paranoid type ICD Codes: F20.0 - Paranoid schizophrenia Status: Chronic Assessment & Plan Estimated LOS: days patient continue somewhat psychotic and confused. Though improving however I feel they're still high risk for decompensation issues were discharge to her own apartment without appropriate supervision Justification for Cont. Inpt. At this time patient decompensate now placed in an appropriate level of care Discharge Planning To be determined Jamin Benitez MD Apr 20, 2017 11:50
[2017-04-20] MEDS: risperiDONE ODT 2 MG TAB PO SCH (20:42)
[2017-04-20] MEDS: BENZTROPINE MESYLATE 1 MG TAB PO SCH (20:42)
[2017-04-20] MEDS: LORazepam 1 MG TAB PO PRN (20:47)
[2017-04-21] MEDS: NYSTATIN 100,000 U/GM PWD 15 GM BTL TOPICAL SCH ×3 (06:00→22:00)
[2017-04-21 06:24] VITALS: BP 114/55; PULSE 59; RESP 16; TEMP 98.7; O2SAT 97
[2017-04-21] MEDS: GABAPENTIN 300 MG CAP PO SCH ×3 (09:00→18:00)
[2017-04-21] MEDS: PANTOPRAZOLE SOD 20 MG DELAYED RELEASE TAB PO SCH (09:00)
[2017-04-21] MEDS: REMOVE OLD PATCH T-DERMAL SCH (09:00)
[2017-04-21] MEDS: CARVEDILOL 3.125 MG TAB PO SCH ×2 (09:00→21:25)
[2017-04-21] MEDS: ATORVASTATIN 10 MG TAB PO SCH (09:00)
[2017-04-21] MEDS: NICOTINE 21 MG/24 HR PATCH T-DERMAL SCH (09:00)
[2017-04-21] MEDS: risperiDONE ODT 1 MG TAB PO SCH (09:11)
--- NOTE | 2017-04-21 14:34 | HHI.PYPN ---
Subjective Remarks Patient was seen and case discussed with nursing. Patient describes voices is "going away." Appears less internally preoccupied compared to her last meeting 2 weeks ago. Alert and oriented 3. Denies suicidal homicidal ideation. Affect is anxious and suspicious. Behaving well on the unit. Has a fixed delusion that she may be a boy Objective Alert: Yes [place]: Person, Place Mood: Anxious Affect: Blunted Memory Intact: Comment (Not assessed) Hallucinations: Auditory (ongoing, as above) Delusions: Yes Delusion Type: Paranoid (that she is a boy) Suicidal: Ideation (No SI) Homicidal: Ideation (No HI) Insight/Judgment Poor Vitals/IOs Vital Signs Date Time Temp Pulse Resp B/P (MAP) Pulse Ox O2 Delivery O2 Flow Rate FiO2 04/21/17 06:24 98.7 59 16 114/55 (74) 97 Intake and Output 04/21/17 04/21/17 04/22/17 08:00 16:00 00:00 Intake Total 0 ml 240 ml Balance 0 ml 240 ml Assessment & Plan Problem List: (1) Schizophrenia, paranoid type ICD Codes: F20.0 - Paranoid schizophrenia Status: Chronic Assessment & Plan Continue current treatment plan Justification for Cont. Inpt. Patient would decompensate in a less restrictive setting Osmar Leary DO Apr 21, 2017 14:34
[2017-04-21] MEDS: MAGNESIUM HYDROXIDE SUSP 30 ML CUP PO PRN (15:34)
[2017-04-21 18:29] VITALS: BP 122/68; PULSE 84; RESP 17; TEMP 98.8; O2SAT 99
[2017-04-21] MEDS: risperiDONE ODT 2 MG TAB PO SCH (21:25)
[2017-04-21] MEDS: BENZTROPINE MESYLATE 1 MG TAB PO SCH (21:25)
[2017-04-22 05:34] VITALS: BP 126/63; PULSE 67; RESP 18; TEMP 98.1; O2SAT 95
[2017-04-22] MEDS: NYSTATIN 100,000 U/GM PWD 15 GM BTL TOPICAL SCH ×4 (06:00→21:48)
[2017-04-22] MEDS: REMOVE OLD PATCH T-DERMAL SCH (09:00)
[2017-04-22] MEDS: NICOTINE 21 MG/24 HR PATCH T-DERMAL SCH (09:00)
[2017-04-22] MEDS: PANTOPRAZOLE SOD 20 MG DELAYED RELEASE TAB PO SCH (09:45)
[2017-04-22] MEDS: CARVEDILOL 3.125 MG TAB PO SCH ×2 (09:45→21:41)
[2017-04-22] MEDS: risperiDONE ODT 1 MG TAB PO SCH (09:46)
[2017-04-22] MEDS: GABAPENTIN 300 MG CAP PO SCH ×3 (09:46→18:42)
[2017-04-22] MEDS: ATORVASTATIN 10 MG TAB PO SCH (09:46)
--- NOTE | 2017-04-22 14:16 | HHI.PYPN ---
Subjective Remarks Patient was seen and case discussed with nursing. Patient is largely seclusive to self. She appears visual and per nursing. Her mood today is "sleeping a lot." Affect is restricted. She says her psychotic symptoms have completely resolved. Denies auditory visual hallucinations. She denies paranoia. Compliant with medications and behaving well on the unit. Looking forward to a visit from her sister Sunday Objective Alert: Yes [place]: Person, Place Mood: Anxious Affect: Restricted Memory Intact: Comment (Not assessed) Hallucinations: Auditory (denies today) Delusions: Yes Delusion Type: Paranoid (vigilant) Suicidal: Ideation (No SI) Homicidal: Ideation (No HI) Insight/Judgment Poor Vitals/IOs Vital Signs Date Time Temp Pulse Resp B/P (MAP) Pulse Ox O2 Delivery O2 Flow Rate FiO2 04/22/17 05:34 98.1 67 18 126/63 (84) 95 Intake and Output 04/22/17 04/22/17 04/23/17 08:00 16:00 00:00 Intake Total 240 ml Balance 240 ml Assessment & Plan Problem List: (1) Schizophrenia, paranoid type ICD Codes: F20.0 - Paranoid schizophrenia Status: Chronic Assessment & Plan Continue current treatment plan Justification for Cont. Inpt. Patient will decompensate in a less restrictive setting Osmar Leary DO Apr 22, 2017 14:16
[2017-04-22 18:32] VITALS: BP 131/60; PULSE 70; RESP 18; TEMP 98.9; O2SAT 99
[2017-04-22] MEDS: BENZTROPINE MESYLATE 1 MG TAB PO SCH (21:41)
[2017-04-22] MEDS: risperiDONE ODT 2 MG TAB PO SCH (21:41)
[2017-04-23] MEDS: NYSTATIN 100,000 U/GM PWD 15 GM BTL TOPICAL SCH ×3 (05:09→22:00)
[2017-04-23 05:35] VITALS: BP 138/64; PULSE 63; RESP 16; TEMP 97.8; O2SAT 94
[2017-04-23 06:00] VITALS: BP 115/54; PULSE 81; RESP 16; TEMP 97.8; O2SAT 96
[2017-04-23] MEDS: REMOVE OLD PATCH T-DERMAL SCH (09:00)
[2017-04-23] MEDS: NICOTINE 21 MG/24 HR PATCH T-DERMAL SCH (09:00)
[2017-04-23] MEDS: risperiDONE ODT 1 MG TAB PO SCH (09:59)
[2017-04-23] MEDS: ATORVASTATIN 10 MG TAB PO SCH (10:00)
[2017-04-23] MEDS: PANTOPRAZOLE SOD 20 MG DELAYED RELEASE TAB PO SCH (10:00)
[2017-04-23] MEDS: CARVEDILOL 3.125 MG TAB PO SCH ×2 (10:00→22:29)
[2017-04-23] MEDS: GABAPENTIN 300 MG CAP PO SCH ×3 (10:01→17:50)
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
[2017-04-23] MEDS: SENNOSIDES SYRUP 8.8 MG/5 ML CUP PO SCH (13:59)
[2017-04-23] MEDS: risperiDONE ODT 2 MG TAB PO SCH (22:29)
[2017-04-23] MEDS: BENZTROPINE MESYLATE 1 MG TAB PO SCH (22:30)
[2017-04-24 06:00] VITALS: BP 115/68; PULSE 54; RESP 16; TEMP 97.3; O2SAT 95
[2017-04-24] MEDS: NYSTATIN 100,000 U/GM PWD 15 GM BTL TOPICAL SCH ×3 (06:00→21:15)
[2017-04-24] MEDS: NICOTINE 21 MG/24 HR PATCH T-DERMAL SCH (09:00)
[2017-04-24] MEDS: REMOVE OLD PATCH T-DERMAL SCH (09:00)
[2017-04-24] MEDS: CARVEDILOL 3.125 MG TAB PO SCH ×2 (09:28→21:15)
[2017-04-24] MEDS: SENNOSIDES SYRUP 8.8 MG/5 ML CUP PO SCH (09:28)
[2017-04-24] MEDS: PANTOPRAZOLE SOD 20 MG DELAYED RELEASE TAB PO SCH (09:28)
[2017-04-24] MEDS: risperiDONE ODT 1 MG TAB PO SCH (09:28)
[2017-04-24] MEDS: GABAPENTIN 300 MG CAP PO SCH ×3 (09:28→18:00)
[2017-04-24] MEDS: ATORVASTATIN 10 MG TAB PO SCH (09:29)
[2017-04-24 18:47] VITALS: BP 124/84; PULSE 79; RESP 17; TEMP 98.1; O2SAT 98
[2017-04-24] MEDS: risperiDONE ODT 2 MG TAB PO SCH (21:15)
[2017-04-24] MEDS: BENZTROPINE MESYLATE 1 MG TAB PO SCH (21:15)
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
[2017-04-25] MEDS: NYSTATIN 100,000 U/GM PWD 15 GM BTL TOPICAL SCH ×3 (05:17→20:33)
[2017-04-25 06:03] VITALS: BP 109/56; PULSE 62; RESP 18; TEMP 97.8; O2SAT 94
[2017-04-25] MEDS: REMOVE OLD PATCH T-DERMAL SCH (09:00)
[2017-04-25] MEDS: NICOTINE 21 MG/24 HR PATCH T-DERMAL SCH (09:00)
[2017-04-25] MEDS: SENNOSIDES SYRUP 8.8 MG/5 ML CUP PO SCH (09:11)
[2017-04-25] MEDS: PANTOPRAZOLE SOD 20 MG DELAYED RELEASE TAB PO SCH (09:11)
[2017-04-25] MEDS: CARVEDILOL 3.125 MG TAB PO SCH ×2 (09:11→20:32)
[2017-04-25] MEDS: ATORVASTATIN 10 MG TAB PO SCH (09:12)
[2017-04-25] MEDS: risperiDONE ODT 1 MG TAB PO SCH (09:12)
[2017-04-25] MEDS: GABAPENTIN 300 MG CAP PO SCH ×3 (09:12→17:41)
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
[2017-04-25 16:45] VITALS: BP 111/60; PULSE 87; RESP 18; TEMP 98.2; O2SAT 100
[2017-04-25] MEDS: BENZTROPINE MESYLATE 1 MG TAB PO SCH (20:32)
[2017-04-25] MEDS: risperiDONE ODT 2 MG TAB PO SCH (20:32)
[2017-04-25] MEDS ORDERED: QUEtiapine FUMARATE 25 MG TAB PO SCH (21:00)
[2017-04-26] MEDS: NYSTATIN 100,000 U/GM PWD 15 GM BTL TOPICAL SCH ×3 (06:00→21:41)
[2017-04-26 06:16] VITALS: BP 113/57; PULSE 60; RESP 17; TEMP 97.8; O2SAT 97
[2017-04-26] MEDS: NICOTINE 21 MG/24 HR PATCH T-DERMAL SCH (09:00)
[2017-04-26] MEDS: REMOVE OLD PATCH T-DERMAL SCH (09:00)
[2017-04-26] MEDS: CARVEDILOL 3.125 MG TAB PO SCH ×2 (09:00→21:41)
[2017-04-26] MEDS: PANTOPRAZOLE SOD 20 MG DELAYED RELEASE TAB PO SCH (09:42)
[2017-04-26] MEDS: SENNOSIDES SYRUP 8.8 MG/5 ML CUP PO SCH (09:42)
[2017-04-26] MEDS: risperiDONE ODT 1 MG TAB PO SCH (09:42)
[2017-04-26] MEDS: GABAPENTIN 300 MG CAP PO SCH ×3 (09:43→18:00)
[2017-04-26] MEDS: ATORVASTATIN 10 MG TAB PO SCH (09:43)
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
[2017-04-26] MEDS ORDERED: QUEtiapine FUMARATE 25 MG TAB PO SCH (21:00)
[2017-04-26] MEDS: risperiDONE ODT 2 MG TAB PO SCH (21:41)
[2017-04-26] MEDS: BENZTROPINE MESYLATE 1 MG TAB PO SCH (21:41)
[2017-04-27] MEDS: NYSTATIN 100,000 U/GM PWD 15 GM BTL TOPICAL SCH ×3 (06:00→22:16)
[2017-04-27 06:29] VITALS: BP 123/68; PULSE 47; RESP 16; TEMP 98.4
[2017-04-27] MEDS: NICOTINE 21 MG/24 HR PATCH T-DERMAL SCH (09:00)
[2017-04-27] MEDS: SENNOSIDES SYRUP 8.8 MG/5 ML CUP PO SCH (09:00)
[2017-04-27] MEDS: ATORVASTATIN 10 MG TAB PO SCH (09:00)
[2017-04-27] MEDS: REMOVE OLD PATCH T-DERMAL SCH (09:00)
[2017-04-27 09:53] VITALS: PULSE 76
[2017-04-27] MEDS: GABAPENTIN 300 MG CAP PO SCH ×3 (09:54→17:27)
[2017-04-27] MEDS: risperiDONE ODT 1 MG TAB PO SCH (09:54)
[2017-04-27] MEDS: PANTOPRAZOLE SOD 20 MG DELAYED RELEASE TAB PO SCH (09:55)
[2017-04-27] MEDS: CARVEDILOL 3.125 MG TAB PO SCH ×2 (09:55→22:16)
--- NOTE | 2017-04-27 14:25 | HHI.PYPN ---
Subjective Remarks Patient seen for follow up; chart reviewed. Patient found lying on hospital bed , calm and cooperative with interview. She states that she had a good visit with her sister yesterday. Reports having some difficulty with sleep and feels that she has been having increased anxiety recently. She continues to have AH "all the time" and states that the voices want to beat her up. Review of Systems Except as stated in HPI: all other systems reviewed are Neg Objective Alert: Yes [place]: Person, Place Mood: Anxious Affect: Other (anxious ) Memory Intact: Comment (Not assessed) Hallucinations: Auditory (of voices wanting to beat her up) Delusions: Yes Delusion Type: Paranoid Suicidal: Ideation (No SI) Homicidal: Ideation (No HI) Insight/Judgment poor insight, impulse control and judgment Vitals/IOs Vital Signs Date Time Temp Pulse Resp B/P (MAP) Pulse Ox O2 Delivery O2 Flow Rate FiO2 04/27/17 09:53 76 04/27/17 06:29 98.4 16 123/68 (86) 04/26/17 06:16 97 Intake and Output 04/27/17 04/27/17 04/28/17 08:00 16:00 00:00 Intake Total 0 ml Balance 0 ml Assessment & Plan Problem List: (1) Schizophrenia, paranoid type ICD Codes: F20.0 - Paranoid schizophrenia Status: Chronic Assessment & Plan Patient continues to be paranoid and having perceptual disturbances. Will increase quetiapine 100mg PO HS. Continue to monitor mood and behavior. Discharge planning in progress. Justification for Cont. Inpt. At risk for further decompensation if at lower level of care. Aman Jorge MD Apr 27, 2017 14:25
[2017-04-27] MEDS: BENZTROPINE MESYLATE 1 MG TAB PO SCH (22:16)
[2017-04-27] MEDS: risperiDONE ODT 2 MG TAB PO SCH (22:16)
[2017-04-27] MEDS: QUEtiapine FUMARATE 25 MG TAB PO SCH (22:16)
[2017-04-28] MEDS: NYSTATIN 100,000 U/GM PWD 15 GM BTL TOPICAL SCH ×3 (06:00→22:05)
[2017-04-28 06:14] VITALS: BP 107/55; PULSE 70; RESP 18; TEMP 98.3; O2SAT 98
[2017-04-28] MEDS: REMOVE OLD PATCH T-DERMAL SCH (09:00)
[2017-04-28] MEDS: NICOTINE 21 MG/24 HR PATCH T-DERMAL SCH (09:00)
[2017-04-28] MEDS: PANTOPRAZOLE SOD 20 MG DELAYED RELEASE TAB PO SCH (09:47)
[2017-04-28] MEDS: risperiDONE ODT 1 MG TAB PO SCH (09:47)
[2017-04-28] MEDS: GABAPENTIN 300 MG CAP PO SCH ×3 (09:47→18:23)
[2017-04-28] MEDS: ATORVASTATIN 10 MG TAB PO SCH (09:47)
[2017-04-28] MEDS: CARVEDILOL 3.125 MG TAB PO SCH ×2 (09:47→22:04)
[2017-04-28] MEDS: SENNOSIDES SYRUP 8.8 MG/5 ML CUP PO SCH (09:47)
--- NOTE | 2017-04-28 17:05 | HHI.PYPN ---
Subjective Remarks Pt seen and discussed with staff. She is improving but is resistant at times to medications, but compliant with encouragement. Some disorganization but overall more clear. Fixated on defacation and states that she is afraid her fingers are going to rot off because she soiled them while tolieting. "I washed them, but it 's too late..They are going to fall off". Objective Alert: Yes [place]: Person, Place Mood: Anxious Affect: Other (anxious ) Memory Intact: Comment (Not assessed) Hallucinations: Auditory (of voices wanting to beat her up) Delusions: Yes Delusion Type: Paranoid, Other (bizarre) Suicidal: Ideation (No SI) Homicidal: Ideation (No HI) Insight/Judgment poor Vitals/IOs Vital Signs Date Time Temp Pulse Resp B/P (MAP) Pulse Ox O2 Delivery O2 Flow Rate FiO2 04/28/17 06:14 98.3 70 18 107/55 (72) 98 Intake and Output 04/28/17 04/28/17 04/29/17 08:00 16:00 00:00 Intake Total 480 ml 0 ml Balance 480 ml 0 ml Assessment & Plan Problem List: (1) Schizophrenia, paranoid type ICD Codes: F20.0 - Paranoid schizophrenia Status: Chronic Assessment & Plan Continue current tx plan. Estimated LOS: days Justification for Cont. Inpt. psychosis Jaci Tucker MD Apr 28, 2017 17:05
[2017-04-28 18:00] VITALS: BP 100/56; PULSE 62; RESP 18; TEMP 98.7; O2SAT 96
[2017-04-28] MEDS: risperiDONE ODT 2 MG TAB PO SCH (22:04)
[2017-04-28] MEDS: QUEtiapine FUMARATE 25 MG TAB PO SCH (22:04)
[2017-04-28] MEDS: BENZTROPINE MESYLATE 1 MG TAB PO SCH (22:04)
[2017-04-29] MEDS: NYSTATIN 100,000 U/GM PWD 15 GM BTL TOPICAL SCH ×3 (06:18→22:00)
[2017-04-29] MEDS: REMOVE OLD PATCH T-DERMAL SCH (09:00)
[2017-04-29] MEDS: NICOTINE 21 MG/24 HR PATCH T-DERMAL SCH (09:00)
[2017-04-29] MEDS: SENNOSIDES SYRUP 8.8 MG/5 ML CUP PO SCH (09:00)
[2017-04-29 09:33] VITALS: BP 134/71; PULSE 100
[2017-04-29] MEDS: CARVEDILOL 3.125 MG TAB PO SCH ×2 (10:21→22:06)
[2017-04-29] MEDS: risperiDONE ODT 1 MG TAB PO SCH (10:22)
[2017-04-29] MEDS: ATORVASTATIN 10 MG TAB PO SCH (10:23)
[2017-04-29] MEDS: PANTOPRAZOLE SOD 20 MG DELAYED RELEASE TAB PO SCH (10:23)
[2017-04-29] MEDS: GABAPENTIN 300 MG CAP PO SCH ×3 (10:23→18:29)
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
[2017-04-29] MEDS: risperiDONE ODT 2 MG TAB PO SCH (22:06)
[2017-04-29] MEDS: QUEtiapine FUMARATE 25 MG TAB PO SCH (22:06)
[2017-04-29] MEDS: BENZTROPINE MESYLATE 2 MG TAB PO SCH (22:08)
[2017-04-30] MEDS: NYSTATIN 100,000 U/GM PWD 15 GM BTL TOPICAL SCH ×3 (06:17→22:00)
[2017-04-30 07:00] VITALS: BP 92/54; PULSE 50; RESP 17; TEMP 97.6; O2SAT 95
[2017-04-30] MEDS: SENNOSIDES SYRUP 8.8 MG/5 ML CUP PO SCH (09:00)
[2017-04-30] MEDS: GABAPENTIN 300 MG CAP PO SCH ×3 (09:00→17:50)
[2017-04-30] MEDS: REMOVE OLD PATCH T-DERMAL SCH (09:00)
[2017-04-30] MEDS: NICOTINE 21 MG/24 HR PATCH T-DERMAL SCH (09:00)
[2017-04-30] MEDS: ATORVASTATIN 10 MG TAB PO SCH (09:19)
[2017-04-30] MEDS: PANTOPRAZOLE SOD 20 MG DELAYED RELEASE TAB PO SCH (09:19)
[2017-04-30] MEDS: CARVEDILOL 3.125 MG TAB PO SCH ×2 (09:19→21:00)
[2017-04-30] MEDS: risperiDONE ODT 1 MG TAB PO SCH (09:19)
[2017-04-30 17:15] VITALS: BP 104/64; PULSE 79; RESP 18; TEMP 97.8; O2SAT 98
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
[2017-04-30] MEDS: risperiDONE ODT 2 MG TAB PO SCH (21:00)
[2017-04-30] MEDS: LORazepam 1 MG TAB PO PRN (21:00)
[2017-04-30] MEDS: BENZTROPINE MESYLATE 2 MG TAB PO SCH (21:00)
[2017-04-30] MEDS: QUEtiapine FUMARATE 25 MG TAB PO SCH (21:00)
[2017-05-01] MEDS: NYSTATIN 100,000 U/GM PWD 15 GM BTL TOPICAL SCH ×3 (05:56→21:01)
[2017-05-01 06:00] VITALS: BP 100/58; PULSE 65; RESP 17; TEMP 98.6; O2SAT 96
[2017-05-01] MEDS: REMOVE OLD PATCH T-DERMAL SCH (09:00)
[2017-05-01] MEDS: NICOTINE 21 MG/24 HR PATCH T-DERMAL SCH (09:00)
[2017-05-01] MEDS: GABAPENTIN 300 MG CAP PO SCH ×3 (09:44→17:52)
[2017-05-01] MEDS: ATORVASTATIN 10 MG TAB PO SCH (09:44)
[2017-05-01] MEDS: PANTOPRAZOLE SOD 20 MG DELAYED RELEASE TAB PO SCH (09:44)
[2017-05-01] MEDS: SENNOSIDES SYRUP 8.8 MG/5 ML CUP PO SCH (09:45)
[2017-05-01] MEDS: CARVEDILOL 3.125 MG TAB PO SCH ×2 (09:45→21:00)
[2017-05-01] MEDS: risperiDONE ODT 1 MG TAB PO SCH (09:45)
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
[2017-05-01] MEDS: PALIPERIDONE PALMITATE 234 MG/1.5 ML SYRINGE IM SCH (17:00)
[2017-05-01 18:11] VITALS: BP 140/78; PULSE 58; RESP 18; TEMP 97.8; O2SAT 99
[2017-05-01] MEDS: BENZTROPINE MESYLATE 2 MG TAB PO SCH (21:00)
[2017-05-01] MEDS: risperiDONE ODT 2 MG TAB PO SCH (21:01)
[2017-05-01] MEDS: QUEtiapine FUMARATE 25 MG TAB PO SCH (21:01)
[2017-05-02 04:00] VITALS: BP 119/60; PULSE 60; RESP 16; TEMP 97.7; O2SAT 16
[2017-05-02] MEDS: NICOTINE 21 MG/24 HR PATCH T-DERMAL SCH (09:00)
[2017-05-02] MEDS: REMOVE OLD PATCH T-DERMAL SCH (09:00)
[2017-05-02] MEDS: ATORVASTATIN 10 MG TAB PO SCH (09:06)
[2017-05-02] MEDS: GABAPENTIN 300 MG CAP PO SCH ×3 (09:06→18:05)
[2017-05-02] MEDS: PANTOPRAZOLE SOD 20 MG DELAYED RELEASE TAB PO SCH (09:06)
[2017-05-02] MEDS: CARVEDILOL 3.125 MG TAB PO SCH ×2 (09:06→21:03)
[2017-05-02] MEDS: SENNOSIDES SYRUP 8.8 MG/5 ML CUP PO SCH (09:06)
[2017-05-02] MEDS: risperiDONE ODT 1 MG TAB PO SCH (09:07)
[2017-05-02] MEDS: NYSTATIN 100,000 U/GM PWD 15 GM BTL TOPICAL SCH ×2 (13:27→21:06)
--- NOTE | 2017-05-02 15:13 | PD.TTN ---
Patient Problems 1. Discharge planning 2. Medication compliance 3. Knowledge deficit 4. Lack of coping skills Progress Toward Goals Provider Present: Dr. Nell Jorge Provider Input: Dr. Jorge treatment team met to discuss treatment plan, discharge plan, and medication. Patient is doing better. Less psychotic. Patient was given a shot to help with medication compliancy Psychiatric Counselors Present: Nissa Corrales [facility] Psych Therapist Input: Patient was found in room. Patient was upset due to thinking about her past and her . Patient presented childlike, depressed, tearful, affect labile. Patient still states she is hearing voices. Patient continues to present paranoid but is less delusional, more reality based. Patient has been medication complaint, eating and sleep well. Patient will return home if patient continues to stablize. Group Spec/RT/OT/OWEN Present: Sachin Barajas OT Group Spec/RT/OT/OWEN Input: Patient is intermittently calm, rational, frequently anxiety ridden, attends groups occasionaly. Nissa Corrales [facility] May 02, 2017 15:13
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
[2017-05-02 18:31] VITALS: BP 122/67; PULSE 60; RESP 16; TEMP 98; O2SAT 97
[2017-05-02] MEDS: risperiDONE ODT 2 MG TAB PO SCH (21:03)
[2017-05-02] MEDS: QUEtiapine FUMARATE 100 MG TAB PO SCH (21:03)
[2017-05-02] MEDS: BENZTROPINE MESYLATE 2 MG TAB PO SCH (21:04)
[2017-05-03 05:49] VITALS: BP 128/59; PULSE 64; RESP 17; TEMP 98.1
[2017-05-03] MEDS: NYSTATIN 100,000 U/GM PWD 15 GM BTL TOPICAL SCH ×4 (06:00→21:03)
--- NOTE | 2017-05-03 07:45 | EKG ---
Date Performed: 05/02/2017 Time Performed: 18:49:40 PTAGE: 56 years EKG: Sinus rhythm RIGHT BUNDLE BRANCH BLOCK ABNORMAL ECG Since PREVIOUS TRACING , new RBBB PREVIOUS TRACIN12/02/2004 20.20 DOCTOR: Adina Fabian Interpretating Date/Time 05/03/2017 07:42:55
[2017-05-03] MEDS: ATORVASTATIN 10 MG TAB PO SCH (08:14)
[2017-05-03] MEDS: PANTOPRAZOLE SOD 20 MG DELAYED RELEASE TAB PO SCH (08:14)
[2017-05-03] MEDS: CARVEDILOL 3.125 MG TAB PO SCH ×2 (08:14→20:43)
[2017-05-03] MEDS: risperiDONE ODT 1 MG TAB PO SCH (08:14)
[2017-05-03] MEDS: GABAPENTIN 300 MG CAP PO SCH ×3 (08:14→17:54)
[2017-05-03] MEDS: NICOTINE 21 MG/24 HR PATCH T-DERMAL SCH (08:15)
[2017-05-03] MEDS: SENNOSIDES SYRUP 8.8 MG/5 ML CUP PO SCH (08:15)
[2017-05-03] MEDS: REMOVE OLD PATCH T-DERMAL SCH (08:21)
[2017-05-03] MEDS: MAGNESIUM HYDROXIDE SUSP 30 ML CUP PO PRN (13:51)
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
[2017-05-03 18:07] VITALS: BP 172/69; PULSE 88; RESP 18; TEMP 98.2; O2SAT 98
[2017-05-03 19:45] VITALS: BP 120/56; PULSE 73; RESP 18; O2SAT 98
[2017-05-03] MEDS: QUEtiapine FUMARATE 100 MG TAB PO SCH (20:43)
[2017-05-03] MEDS: BENZTROPINE MESYLATE 2 MG TAB PO SCH (20:43)
[2017-05-03] MEDS: risperiDONE ODT 2 MG TAB PO SCH (20:43)
[2017-05-03] MEDS: ACETAMINOPHEN 325 MG TAB PO PRN (21:04)
[2017-05-04 06:00] VITALS: BP 111/61; PULSE 78; RESP 16; TEMP 97.5; O2SAT 95
[2017-05-04] MEDS: NYSTATIN 100,000 U/GM PWD 15 GM BTL TOPICAL SCH ×3 (06:03→21:23)
[2017-05-04] MEDS: NICOTINE 21 MG/24 HR PATCH T-DERMAL SCH (08:39)
[2017-05-04] MEDS: SENNOSIDES SYRUP 8.8 MG/5 ML CUP PO SCH (08:39)
[2017-05-04] MEDS: REMOVE OLD PATCH T-DERMAL SCH (08:39)
[2017-05-04] MEDS: ATORVASTATIN 10 MG TAB PO SCH (08:39)
[2017-05-04] MEDS: risperiDONE ODT 1 MG TAB PO SCH (08:39)
[2017-05-04] MEDS: CARVEDILOL 3.125 MG TAB PO SCH ×2 (08:39→21:23)
[2017-05-04] MEDS: GABAPENTIN 300 MG CAP PO SCH ×3 (08:39→17:39)
[2017-05-04] MEDS: PANTOPRAZOLE SOD 20 MG DELAYED RELEASE TAB PO SCH (08:39)
[2017-05-04] MEDS: ACETAMINOPHEN 325 MG TAB PO PRN ×2 (11:53→17:44)
[2017-05-04] MEDS: risperiDONE ODT 2 MG TAB PO SCH (21:23)
[2017-05-04] MEDS: QUEtiapine FUMARATE 100 MG TAB PO SCH (21:23)
[2017-05-04] MEDS: BENZTROPINE MESYLATE 2 MG TAB PO SCH (21:23)
--- NOTE | 2017-05-04 21:36 | HHI.PYPN ---
Subjective Remarks Patient seen for follow up; chart reviewed. Patient found lying on hospital bed , calm and cooperative with interview. Patient state that she feels "happy today " as she reports having gone to activities groups and had fun. She reports having slept good last night but was bothered by a nightmare. She reports having called her sisters and had a nice conversation with them. She denies AH and later clarifies that it is the voices outside of her room that she hears. Review of Systems Except as stated in HPI: all other systems reviewed are Neg Objective Alert: Yes [place]: Person, Place Mood: Calm Affect: Appropriate Memory Intact: Comment (fair) Hallucinations: Auditory (denies at time of interview) Delusions: Yes Delusion Type: Paranoid, Other (denies) Suicidal: Ideation (No SI) Homicidal: Ideation (No HI) Insight/Judgment limited insight, fair impulse control, limited judgment Vitals/IOs Vital Signs Date Time Temp Pulse Resp B/P (MAP) Pulse Ox O2 Delivery O2 Flow Rate FiO2 05/04/17 06:00 97.5 78 16 111/61 (78) 95 Intake and Output 05/04/17 05/04/17 05/05/17 08:00 16:00 00:00 Intake Total 1320 ml 360 ml 720 ml Balance 1320 ml 360 ml 720 ml Assessment & Plan Problem List: (1) Schizophrenia, paranoid type ICD Codes: F20.0 - Paranoid schizophrenia Status: Chronic Assessment & Plan Patient noted to have improvement of AH and decrease in paranoia. Patient noted to be participating in groups and less isolative. Continue current treatment. Discharge planning in progress. Justification for Cont. Inpt. At risk for further decompensation if at lower level of care. Aman Jorge MD May 04, 2017 21:36
[2017-05-05] MEDS: NYSTATIN 100,000 U/GM PWD 15 GM BTL TOPICAL SCH ×3 (05:50→22:00)
[2017-05-05 06:01] VITALS: BP 105/56; PULSE 56; RESP 17; TEMP 97.4; O2SAT 97
[2017-05-05] MEDS: REMOVE OLD PATCH T-DERMAL SCH (09:00)
[2017-05-05] MEDS: SENNOSIDES SYRUP 8.8 MG/5 ML CUP PO SCH (09:00)
[2017-05-05] MEDS: NICOTINE 21 MG/24 HR PATCH T-DERMAL SCH (09:00)
[2017-05-05] MEDS: CARVEDILOL 3.125 MG TAB PO SCH ×2 (09:00→20:57)
[2017-05-05] MEDS: risperiDONE ODT 1 MG TAB PO SCH (09:02)
[2017-05-05] MEDS: GABAPENTIN 300 MG CAP PO SCH ×3 (09:03→17:20)
[2017-05-05] MEDS: PANTOPRAZOLE SOD 20 MG DELAYED RELEASE TAB PO SCH (09:03)
[2017-05-05] MEDS: ATORVASTATIN 10 MG TAB PO SCH (09:07)
--- NOTE | 2017-05-05 13:20 | HHI.PYPN ---
Subjective Remarks Patient was seen and case discussed with nursing. Patient continues to complain of auditory hallucinations. Today they are not bothersome nonspecific in nature. Affect is anxious and blunted. She is behaving well on the unit and tolerating her medications well Objective Alert: Yes [place]: Person, Place Mood: Calm Affect: Blunted Memory Intact: Comment (fair) Hallucinations: Auditory (unspecific) Delusions: Yes Delusion Type: Paranoid (vigilance), Other (denies) Suicidal: Ideation (No SI) Homicidal: Ideation (No HI) Insight/Judgment Poor Vitals/IOs Vital Signs Date Time Temp Pulse Resp B/P (MAP) Pulse Ox O2 Delivery O2 Flow Rate FiO2 05/05/17 06:01 97.4 56 17 105/56 (72) 97 Assessment & Plan Problem List: (1) Schizophrenia, paranoid type ICD Codes: F20.0 - Paranoid schizophrenia Status: Chronic Assessment & Plan Continue current treatment plan Justification for Cont. Inpt. Patient will decompensate in a less restrictive setting Osmar Leary DO May 05, 2017 13:20
[2017-05-05] MEDS: risperiDONE ODT 2 MG TAB PO SCH (20:56)
[2017-05-05] MEDS: QUEtiapine FUMARATE 100 MG TAB PO SCH (20:57)
[2017-05-05] MEDS: BENZTROPINE MESYLATE 2 MG TAB PO SCH (20:57)
[2017-05-06 05:14] VITALS: BP 119/56; PULSE 65; RESP 17; TEMP 98.8
[2017-05-06] MEDS: NYSTATIN 100,000 U/GM PWD 15 GM BTL TOPICAL SCH ×3 (05:35→21:23)
[2017-05-06] MEDS: ATORVASTATIN 10 MG TAB PO SCH (08:34)
[2017-05-06] MEDS: PANTOPRAZOLE SOD 20 MG DELAYED RELEASE TAB PO SCH (08:34)
[2017-05-06] MEDS: SENNOSIDES SYRUP 8.8 MG/5 ML CUP PO SCH ×2 (08:35→08:38)
[2017-05-06] MEDS: GABAPENTIN 300 MG CAP PO SCH ×3 (08:35→17:03)
[2017-05-06] MEDS: risperiDONE ODT 1 MG TAB PO SCH (08:35)
[2017-05-06] MEDS: CARVEDILOL 3.125 MG TAB PO SCH ×2 (08:35→21:00)
[2017-05-06] MEDS: REMOVE OLD PATCH T-DERMAL SCH (09:00)
[2017-05-06] MEDS: NICOTINE 21 MG/24 HR PATCH T-DERMAL SCH (09:00)
--- NOTE | 2017-05-06 13:50 | HHI.PYPN ---
Subjective Remarks Patient was seen and case discussed with nursing. Patient has various somatic complaints. Told me she was dizzy but did not mention that nursing earlier. She is seeking Klonopin and Xanax. Says she slept poorly well nursing says she slept 7 hours. Auditory hallucinations are resolved. Idols within normal limits Objective Alert: Yes [place]: Person, Place Mood: Calm Affect: Other (perseverative) Memory Intact: Comment (fair) Hallucinations: Auditory (denies today) Delusions: Yes Delusion Type: Paranoid (vigilance) Suicidal: Ideation (No SI) Homicidal: Ideation (No HI) Insight/Judgment Poor Vitals/IOs Vital Signs Date Time Temp Pulse Resp B/P (MAP) Pulse Ox O2 Delivery O2 Flow Rate FiO2 05/06/17 05:14 98.8 65 17 119/56 (77) 05/05/17 06:01 97 Intake and Output 05/06/17 05/06/17 05/07/17 08:00 16:00 00:00 Intake Total 240 ml Balance 240 ml Assessment & Plan Problem List: (1) Schizophrenia, paranoid type ICD Codes: F20.0 - Paranoid schizophrenia Status: Chronic Assessment & Plan Continue current treatment plan Justification for Cont. Inpt. Patient would decompensate in a less restrictive setting Osmar Leary DO May 06, 2017 13:50
[2017-05-06 17:08] VITALS: BP 125/62; PULSE 68; RESP 18; TEMP 97.5; O2SAT 99
[2017-05-06] MEDS: QUEtiapine FUMARATE 100 MG TAB PO SCH (21:14)
[2017-05-06] MEDS: risperiDONE ODT 2 MG TAB PO SCH (21:15)
[2017-05-06] MEDS: BENZTROPINE MESYLATE 2 MG TAB PO SCH (21:17)
[2017-05-07 05:18] VITALS: BP 115/55; PULSE 51; RESP 17; TEMP 98.1
[2017-05-07] MEDS: NYSTATIN 100,000 U/GM PWD 15 GM BTL TOPICAL SCH ×3 (05:19→21:38)
[2017-05-07] MEDS: risperiDONE ODT 1 MG TAB PO SCH (08:53)
[2017-05-07] MEDS: ATORVASTATIN 10 MG TAB PO SCH (08:53)
[2017-05-07] MEDS: PANTOPRAZOLE SOD 20 MG DELAYED RELEASE TAB PO SCH (08:53)
[2017-05-07] MEDS: GABAPENTIN 300 MG CAP PO SCH ×3 (08:53→17:40)
[2017-05-07] MEDS: SENNOSIDES SYRUP 8.8 MG/5 ML CUP PO SCH (08:53)
[2017-05-07] MEDS: NICOTINE 21 MG/24 HR PATCH T-DERMAL SCH (09:00)
[2017-05-07] MEDS: CARVEDILOL 3.125 MG TAB PO SCH ×2 (09:00→21:38)
[2017-05-07] MEDS: REMOVE OLD PATCH T-DERMAL SCH (09:00)
--- NOTE | 2017-05-07 14:55 | HHI.PYPN ---
Subjective Remarks Patient seen for follow-up, chart reviewed. Patient states that she is ready to go home feeling much better. Patient reports that over the weekend she was attending groups maintaining her hygiene and denies having auditory hallucinations. She states the last and she had auditory hallucinations was a couple of days ago. Patient states that she is no longer so suspicious of others and denies feeling paranoid. Patient reports having spoken with her sisters over the weekend and call before times that she has been feeling bored on the unit with no to talk to. Patient denies SI, HI, AVH or delusions at this time. Review of Systems Except as stated in HPI: all other systems reviewed are Neg Objective Alert: Yes [place]: Person, Place Mood: Calm Affect: Other (perseverative) Memory Intact: Comment (fair) Hallucinations: Auditory (denies today) Delusions: Yes Delusion Type: Paranoid (denies today) Suicidal: Ideation (No SI) Homicidal: Ideation (No HI) Insight/Judgment Limited insight, fair impulse control and judgment Vitals/IOs Vital Signs Date Time Temp Pulse Resp B/P (MAP) Pulse Ox O2 Delivery O2 Flow Rate FiO2 05/07/17 05:18 98.1 51 17 115/55 (75) 05/06/17 17:08 99 Intake and Output 05/07/17 05/07/17 05/08/17 08:00 16:00 00:00 Intake Total 120 ml 240 ml Balance 120 ml 240 ml Assessment & Plan Problem List: (1) Schizophrenia, paranoid type ICD Codes: F20.0 - Paranoid schizophrenia Status: Chronic Assessment & Plan Patient is time appears to be be consistent with mood the longer endorsing auditory hallucinations or paranoid ideations at this time. Patient also noted to be participatory in groups and activities, eats her meals a day room by other peers, and comply with current treatment. Continue current treatment for now. We'll attempt to contact patient's sister for involvement for discharge planning. Discharge planning in progress Justification for Cont. Inpt. At risk for further decompensation if at lower level of care Aman Jorge MD May 07, 2017 14:55
[2017-05-07 18:00] VITALS: BP 143/75; PULSE 82; RESP 16; TEMP 97.6; O2SAT 98
[2017-05-07] MEDS: QUEtiapine FUMARATE 100 MG TAB PO SCH (21:38)
[2017-05-07] MEDS: risperiDONE ODT 2 MG TAB PO SCH (21:38)
[2017-05-07] MEDS: BENZTROPINE MESYLATE 2 MG TAB PO SCH (21:39)
[2017-05-08 06:00] VITALS: BP 113/55; PULSE 47; RESP 16; TEMP 97.4; O2SAT 100
[2017-05-08] MEDS: NYSTATIN 100,000 U/GM PWD 15 GM BTL TOPICAL SCH (06:00)
[2017-05-08 06:46] VITALS: PULSE 57
--- NOTE | 2017-05-08 08:31 | HHI.DS ---
Psychiatry Discharge Summary Inpatient Psychiatric care?: Yes Advance Directive: Yes Mental Health AdvanceDirective: No Health Care Proxy: No Admission Admission Date Apr 02, 2017 at 12:38 Admission Diagnosis: (1) Schizophrenia, paranoid type ICD Code: F20.0 - Paranoid schizophrenia Brief History 56-year-old female brought in under a Chao act by police due to walking in the middle of the road, indicating she wanted to be hit by a car and complaining of hearing voices. Patient is self-admitted schizophrenic and indicates she has not been very compliant with her medicines over the last several months. Police observed her walking in the middle of the road on [facility]. Patient continues to report suicidal ideation with plan. She continues to describe paranoia at her residence. She states the lights at that facility are tracking her and she must be silent from 10 PM to 6 AM. She also describes auditory hallucinations which are critical of her. The patient feels she can no longer tolerate her situation and this is the reason that she wants to kill herself. She denies any ingestion of alcohol or illicit drugs. However, she is unable to provide a cogent history regarding her current medications or treatment. chief legal officer wrote that she takes Risperdal and has a history of cardiac problems. Some history patient has been treated at [facility] recently with in [facility]. Tobacco Use In Past 30 Days: 5 or More Cigarettes/Day Alcohol Use: Never Hospital Course Patient is a 56-year-old woman, domiciled alone with past psychiatric history of schizophrenia, previous psychiatric admissions who was brought in under a Chao act by police due to walking in the middle of the road, indicating she wanted to be hit by a car and complaining of hearing voices. Patient was restarted on gabapentin, added risperidone with the addition of quetiapine along with her monthly REID of paliperidone. Patient was noted to be with improved mood, participatory in groups and activities, and cooperative with staff. Upon discharge, patient stated feeling that the medication regimen is helpful denied any SI, HI, AVH or delusions. He agrees to continue treatment and outpatient follow up for continuity of care. Supportive psychotherapy provided. I have counseled the patient regarding warning signs for need to return to the psychiatric emergency room as part of a general safety plan. Results Blood Pressure 113 / 55 Vital Signs Date Time Temp Pulse Resp B/P (MAP) Pulse Ox O2 Delivery O2 Flow Rate FiO2 05/08/17 06:46 57 05/08/17 06:00 97.4 16 113/55 (74) 100 Laboratory Results Test 04/03/17 11:07 Cholesterol Level 136 MG/DL (120-200) HDL Cholesterol 37.6 MG/DL (40.0-60.0) Hemoglobin A1c 5.8 % (4.3-6.0) LDL Cholesterol 70 MG/DL (0-99) Triglycerides Level 141 MG/DL (42-150) Summary of Procedures none Pending results at discharge: No Medications # of Antipsychotic meds at D/C: 2 Approp Antipsych med options 1 - Minimum of three failed multiple trials of monotherapy. 2 - Documented plan to taper to monotherapy due to previous use of multiple meds OR cross-taper in progress at D/C. 3 - Documentation of augmentation of Clozapine. 4 - Justification other than those listed in allowable values 1-3, document here : Discharge Discharge Date: May 08, 2017 Discharge Diagnosis: (1) Schizophrenia, paranoid type Diagnosis: Principal ICD Code: F20.0 - Paranoid schizophrenia Status: Chronic Mental Status Exam at Disch Appearance/Behavior: appears stated age, in casual clothing, calm and cooperative with interview. Fair eye contact Speech: normal rate, tone and prosody Mood: good Affect: euthymic TP: linear, goal-directed, future oriented TC: denies SI, HI, AVH or delusions Insight/Impulse control/judgment: fair Pt Condition on Discharge: Stable Discharge Disposition: Discharge Home Discharge Instructions Diet Instructions: Heart Healthy Diet Activities you can perform: Regular-No Restrictions Scheduled Appointment: Beltran Johnson Discharge Time > 30 minutes Discharge/Advance Care Plan Health Problems: (1) Schizophrenia, paranoid type Goals to promote your health * To prevent worsening of your condition and complications * To maintain your health at the optimal level Directions to meet your goals Take your medications as prescribed Follow your dietary instruction Follow activity as directed Keep your appointments as scheduled Take your immunizations and boosters as scheduled If your symptoms worsen call your PCP, if no PCP go to Urgent Care Center or Emergency Room For 26/02 questions related to your inpatient stay or results of tests pending at discharge, please contact Dr. Aman Jorge at Smoking is Dangerous to Your Health. Avoid second hand smoking Aman Jorge MD May 08, 2017 08:31
[2017-05-08] MEDS: GABAPENTIN 300 MG CAP PO SCH (08:37)
[2017-05-08] MEDS: CARVEDILOL 3.125 MG TAB PO SCH (08:37)
[2017-05-08] MEDS: SENNOSIDES SYRUP 8.8 MG/5 ML CUP PO SCH (08:37)
[2017-05-08] MEDS: NICOTINE 21 MG/24 HR PATCH T-DERMAL SCH (08:37)
[2017-05-08] MEDS: PANTOPRAZOLE SOD 20 MG DELAYED RELEASE TAB PO SCH (08:37)
[2017-05-08] MEDS: ATORVASTATIN 10 MG TAB PO SCH (08:37)
[2017-05-08] MEDS: risperiDONE ODT 1 MG TAB PO SCH (08:37)
[2017-05-08] MEDS: REMOVE OLD PATCH T-DERMAL SCH (08:38)
[2017-05-08] MEDS ORDERED: LIPI10TA PO (08:39)
[2017-05-08] MEDS ORDERED: NEUR300C PO (08:39)
[2017-05-08] MEDS ORDERED: QUET1TAB8 PO (08:39)
[2017-05-08] MEDS ORDERED: RISP3TAB SL (08:39)
[2017-05-08] MEDS ORDERED: PANT20 PO (08:39)
[2017-05-08] MEDS ORDERED: SENN8.8L PO (08:39)
[2017-05-08] MEDS ORDERED: NYST10007 TOPICAL (08:39)
[2017-05-08] MEDS ORDERED: Benztropine PO (08:39)
[2017-05-08] MEDS ORDERED: CARV3.125 PO (08:39)
[2017-05-08] MEDS ORDERED: RISP4TAB3 SL (08:39)
[2017-05-08] MEDS ORDERED: RISP3 PO (12:34)
[2017-05-08] MEDS ORDERED: RISP4TAB41 PO (12:34)
== END 2017-05-08 13:00 | disposition home or self-care (01) | DRG 885 ==
LOC: NEPD 03:37 → NEDA 12:38 → H260 17:57 → H250 04-06 13:30
PROVIDERS: ADMIT Student in an Organized Health Care Education/Training Program; ATTEND Student in an Organized Health Care Education/Training Program
DX: F20.0 Paranoid schizophrenia (principal); R45.851 Suicidal ideations; G62.9 Polyneuropathy, unspecified; Z91.14 Patient's other noncompliance with medication regimen; F17.210 Nicotine dependence, cigarettes, uncomplicated; R21 Rash and other nonspecific skin eruption; I10 Essential (primary) hypertension; K21.9 Gastro-esophageal reflux disease without esophagitis; I25.10 Atherosclerotic heart disease of native coronary artery without angina pectoris; J44.9 Chronic obstructive pulmonary disease, unspecified; E78.5 Hyperlipidemia, unspecified; G89.29 Other chronic pain; M54.2 Cervicalgia; M54.9 Dorsalgia, unspecified; K64.8 Other hemorrhoids; K62.89 Other specified diseases of anus and rectum
CPT/HCPCS: 80053; 80061; 80307; 81001; 82306; 82607; 83036; 84443; 85025; 93005; 94640; 94664; J2426

== ENCOUNTER 2017-05-25 15:58 | Inpatient (IN) | payer OTHER, MEDICAID, MEDICARE ==
[~2017-05-25] VITALS: Ht 154.9 cm; Wt 63.3 kg
[~2017-05-25 15:58] MED LIST changes: -ALBU1AER INH; -ASPI81 PO; -BENZ1TAB PO; +Benztropine PO; -CARV3.12 PO; +CARV3.125 PO; -CLON1 PO; +CLON1TAB PO; -GABA300 PO; -GLUCOSE LANCETS; -GLUCOSE TEST; -GLUCTAB PO; +HYDR50CA PO; +LIPI10TA PO; -LORTA10 PO; +NEUR300C PO; -NIAC500T34 PO; -NICOTROL INH; +NIZORAL TOPICAL; +NYST10007 TOPICAL; -OMEG1CAP53 PO; -OMEP20TA PO; +PALI234P IM; +PANT20 PO; -PARIMIS XX; -PRAV20 PO; -PRIN20TA2 PO; +QUET1TAB8 PO; +RISP4TAB41 PO; -SELE2.5%T TOP; +SENN8.8L PO; -SYNT25TA PO; -TRIA.1%T TOP; +VENTAER INH; -WAL-10TA2 PO; -[UNRECOGNIZED DRUG - CODE] XX; -[UNRECOGNIZED DRUG - SUPPLY]; -[UNRECOGNIZED DRUG - SUPPLY]; -glucometer
[2017-05-25 16:13] VITALS: BP 134/71; PULSE 58; RESP 17; TEMP 98.1; O2SAT 100
--- NOTE | 2017-05-25 16:48 | PD ---
HPI Chief Complaint: Psychiatric Symptoms Time Seen by Provider: 16:16 Travel History International Travel<30 days: No Contact w/Intl Traveler<30days: No Traveled to known affect area: No History of Present Illness HPI 56-year-old female that presents to the ED for evaluation of Chao act. Patient was Chao acted by police secondary to suicidal ideation. Patient is a chronic history of schizophrenia and has been here before for the same. Per patient herself she was just discharged from this hospital in May. She states is compliant with her medications. She denies any medical issues at this time. She states that she does feel like she is hearing voices and they' re telling her to do things. She states feeling suicidal but no homicidal. She denies any drugs or alcohol. She denies taking any new medications other than was prescribed for her doctor. She is for the most part somewhat of a poor historian. She does have multiple DIFFERENT medications. Symptoms appear to have worsened for the past couple of days which is what prompted the Choa act by family member. She denies any other medical issues at this time. Nothing seems to make the symptoms better. PFSH Past Medical History Arthritis: Yes Asthma: No Autoimmune Disease: No Heart Rhythm Problems: No Cancer: No Cardiovascular Problems: Yes High Cholesterol: No Chest Pain: No Congestive Heart Failure: No COPD: Yes Cerebrovascular Accident: No Diabetes: Yes Patient Takes Glucophage: No Diminished Hearing: No Endocrine: No GERD: Yes Glaucoma: No Headaches: Yes Hepatitis: No Hiatal Hernia: No Hypertension: Yes Kidney Stones: No Musculoskeletal: No Neurologic: No Psychiatric: Yes (Schizoaffective Disorder) Reproductive: No Respiratory: No Myocardial Infarction: No Renal Failure: No Schizophrenia: Yes Seizures: No Thyroid Disease: No Ulcer: No ?: Not Past Surgical History Abdominal Surgery: No AICD: No Cardiac Surgery: No Section: Yes Cholecystectomy: Yes Ear Surgery: No Endocrine Surgery: No Eye Surgery: No Genitourinary Surgery: No Gynecologic Surgery: No Insulin Pump: No Oral Surgery: No Pacemaker: No Thoracic Surgery: No Other Surgery: Yes (SPLEEN) Social History Alcohol Use: No Tobacco Use: No (QUIT 3 WEEKS AGO) Substance Use: No Allergies-Medications (Allergen,Severity, Reaction): Coded Allergies: Benzodiazepines (Verified Allergy, Severe, 04/05/17) Per Pharmacist - [facility] - [place], [place] [phone]. buspirone (Unverified Allergy, Severe, HEART RACES, 04/02/17) doxycycline (Unverified Allergy, Severe, 04/02/17) minocycline (Unverified Allergy, Severe, 04/02/17) tigecycline (Unverified Allergy, Severe, 04/02/17) diphenhydramine (Unverified Allergy, Intermediate, hives, 04/02/17) diazepam (Unverified Allergy, Mild, HEART RACES, 04/02/17) Penicillins (Verified Allergy, Unknown, 04/02/17) Per [place], [place] [phone]. Sulfa (Sulfonamide Antibiotics) (Verified Allergy, Unknown, 04/02/17) [place] [phone]. Tetracyclines (Verified Allergy, Unknown, 04/02/17) Per [place] [phone]. erythromycin base (Unverified Allergy, Unknown, 04/02/17) penicillin V (Unverified Allergy, Unknown, 04/02/17) bupropion (Unverified Adverse Reaction, Intermediate, suicidal, 04/02/17) mometasone furoate (Unverified Adverse Reaction, Intermediate, NOSE BLEED , 04/02/17) ziprasidone (Unverified Adverse Reaction, Intermediate, tremor, 04/02/17) onion (Unverified Adverse Reaction, Mild, emesis, 04/02/17) Uncoded Allergies: MYCINS (Allergy, Severe, 10/19/08) CITRUS (Allergy, Mild, Blader infection , 12/12/11) Macrolides (Allergy, Unknown, 04/02/17) Per [place], [place] [phone]. Quinines (Allergy, Unknown, 04/02/17) Per [place] [phone]. Reported Meds & Prescriptions Reported Meds & Active Scripts Active Risperdal (Risperidone) 4 Mg Tab 4 Mg PO HS Risperdal (Risperidone) 3 Mg Tab 3 Mg PO DAILY Senexon Liq (Sennosides) 8.8 Mg/5 Ml Liq 8.8 Mg PO DAILY 30 Days Nystop Topical (Nystatin Topical) 100,000 Unit/Gm Powd 1 Applic TOPICAL Q8HR 30 Days Protonix (Pantoprazole Sodium) 20 Mg Tab 20 Mg PO DAILY 30 Days [Benztropine] 2 MG Tab 1 Mg PO HS 30 Days Quetiapine (Quetiapine Fumarate) 100 Mg Tab 150 Mg PO HS 30 Days Neurontin (Gabapentin) 300 Mg Cap 300 Mg PO TID 30 Days Coreg (Carvedilol) 3.125 Mg Tab 3.125 Mg PO BID 30 Days Lipitor (Atorvastatin Calcium) 10 Mg Tab 10 Mg PO DAILY 30 Days Reported Invega Sustenna Inj (Paliperidone Palmitate) 234 Mg/1.5 Ml Inj 234 Mg IM [id number] [Nizoral Cream] TOPICAL Atrovent HFA 12.9 GM Inh (Ipratropium [place]) 17 Mcg/Actuation Aer 1 Puff INH QID PRN Clonazepam 1 Mg Tab 1 Mg PO TID PRN Ventolin Hfa 18 GM Inh (Albuterol Sulfate) 90 Mcg/Act Aer 2 Puff INH Q6H PRN Hydroxyzine Pamoate 50 Mg Cap 50 Mg PO TID Review of Systems ROS Limitations: Poor Historian Except as stated in HPI: all other systems reviewed are Neg Physical Exam Exam Limitations: Poor Historian Narrative GENERAL: SKIN: Warm and dry. HEAD: Atraumatic. Normocephalic. EYES: Pupils equal and round. No scleral icterus. No injection or drainage. ENT: No nasal bleeding or discharge. Mucous membranes pink and moist. Tongue is midline. No uvula deviation. NECK: Trachea midline. No JVD. CARDIOVASCULAR: Regular rate and rhythm. No murmurs, S3, S4. RESPIRATORY: No accessory muscle use. Clear to auscultation. Breath sounds equal bilaterally. GASTROINTESTINAL: Abdomen soft, non-tender, nondistended. Hepatic and splenic margins not palpable. MUSCULOSKELETAL: Extremities without clubbing, cyanosis, or edema. No obvious deformities. Full range of motion of the upper and lower extremities bilaterally. 2+ pulses bilaterally. NEUROLOGICAL: Awake and alert. No obvious cranial nerve deficits. Motor grossly within normal limits. Five out of 5 muscle strength in the arms and legs. Normal speech. PSYCHIATRIC: Appropriate mood and affect; insight and judgment normal. Data Data Last Documented VS Vital Signs Date Time Temp Pulse Resp B/P (MAP) Pulse Ox O2 Delivery O2 Flow Rate FiO2 10/20/17 16:13 98.1 58 17 134/71 (92) 100 Orders Orders Complete Blood Count With Diff (05/25/17 16:14) Comprehensive Metabolic Panel (05/25/17 16:14) Psych Screen (05/25/17 16:14) Drug Screen, Random Urine (05/25/17 16:14) Alcohol (Ethanol) (05/25/17 16:14) Salicylates (Aspirin) (05/25/17 16:14) Tylenol (Acetaminophen) (05/25/17 16:14) ^ Sitter (05/25/17 16:25) MDM Medical Decision Making Medical Screen Exam Complete: Yes Emergency Medical Condition: Yes Medical Record Reviewed: Yes Differential Diagnosis Depression versus suicidal ideation versus anxiety versus adjustment disorder versus mood disorder versus bipolar disorder versus schizophrenia versus paranoid disorder versus psychosis versus substance abuse versus alcohol abuse versus alcohol induced psychosis versus homicidality addition versus cutting versus personality disorder Narrative Course 56-year-old female that presents to the ED for evaluation of psych. Patient was properly examined and was found to have signs and symptoms consistent with psychiatric illness. Labs were drawn. Patient was medically cleared. Okay to be seen by psych. Mental health screening was discussed with the patient. Diagnosis Primary Impression: Schizoaffective disorder Qualified Codes: F25.9 - Schizoaffective disorder, unspecified Gibran Hopkins May 25, 2017 16:48
[2017-05-25 17:20] LABS: ANION GAP 4 MEQ/L (5-15); BICARBONATE 28.6 MEQ/L (21.0-32.0); BLOOD UREA NITROGEN 20 MG/DL (7-18); CHLORIDE 107 MEQ/L (98-107); GLOMERULAR FILTRATION RATE 91 ML/MIN (>89); POTASSIUM 3.9 MEQ/L (3.5-5.1); SODIUM (NA) 140 MEQ/L (136-145)
[2017-05-25 17:21] LABS: ALT (GPT) 30 U/L (10-53); AST (GOT) 14 U/L (15-37)
[2017-05-25 17:23] LABS: ALKALINE PHOSPHATASE 82 U/L (45-117); TOTAL BILIRUBIN ADULT 0.2 MG/DL (0.2-1.0)
[2017-05-25 17:24] LABS: ALCOHOL LESS THAN 3 MG/DL (0-5)
[2017-05-25 17:25] LABS: ACETAMINOPHEN LESS THAN 2.0 MCG/ML (10.0-30.0)
[2017-05-25 18:41] VITALS: BP 144/77; PULSE 64; RESP 15; O2SAT 99
[2017-05-25 20:14] LABS: AUTOMATED NEUTROPHIL # 6.4 TH/MM3 (1.8-7.7); BASOPHIL # 0.1 TH/MM3 (0-0.2); BASOPHIL % 0.9 % (0.0-2.0); EOSINOPHIL # 0.3 TH/MM3 (0-0.4); EOSINOPHIL % 2.6 % (0.0-4.0); HEMATOCRIT 37.5 % (35.0-46.0); HEMO FLAGS DIFF FINAL; LYMPH % 39.2 % (9.0-44.0); LYMPHOCYTE # 4.9 TH/MM3 (1.0-4.8); MEAN CELL VOLUME 94.8 FL (80.0-100.0); MEAN CORPUSCULAR HEMOGLOBIN 31.5 PG (27.0-34.0); MEAN CORPUSCULAR HGB CONC 33.3 % (32.0-36.0); NEUT % 51.3 % (16.0-70.0); PLATELET COUNT 198 TH/MM3 (150-450); RED BLOOD COUNT 3.96 MIL/MM3 (4.00-5.30); RED CELL DISTRIBUTION WIDTH 13.5 % (11.6-17.2); WHITE BLOOD COUNT 12.5 TH/MM3 (4.0-11.0)
[2017-05-25 20:35] VITALS: BP 159/74; PULSE 62; RESP 18; TEMP 98; O2SAT 100
[2017-05-25 22:54] VITALS: BP 140/80
[2017-05-26 02:07] VITALS: BP 135/63; PULSE 55; RESP 15; TEMP 97; O2SAT 98
[2017-05-26 03:40] VITALS: TEMP 97.7
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
[2017-05-26] MEDS ORDERED: ACETAMINOPHEN 325 MG TAB PO PRN (13:45)
[2017-05-26] MEDS ORDERED: ALUMINUM/MAGNESIUM/SIMETH 30 ML CUP PO PRN (13:45)
[2017-05-26 15:12] VITALS: BP 141/70; PULSE 80; RESP 17; TEMP 97.8; O2SAT 99
[2017-05-26 16:00] VITALS: BP 142/70; PULSE 62; RESP 18; TEMP 98.1; O2SAT 100
[2017-05-26] MEDS: GABAPENTIN 300 MG CAP PO SCH (17:59)
[2017-05-26] MEDS: QUEtiapine FUMARATE 100 MG TAB PO SCH (21:19)
[2017-05-26] MEDS: CARVEDILOL 3.125 MG TAB PO SCH (21:19)
[2017-05-27 06:00] VITALS: BP 134/79; PULSE 61; RESP 16; TEMP 97.9; O2SAT 97
[2017-05-27] MEDS: CARVEDILOL 3.125 MG TAB PO SCH ×2 (08:51→21:38)
[2017-05-27] MEDS: GABAPENTIN 300 MG CAP PO SCH ×3 (08:51→18:00)
[2017-05-27] MEDS: ATORVASTATIN 10 MG TAB PO SCH (08:51)
[2017-05-27] MEDS ORDERED: REMOVE OLD PATCH T-DERMAL SCH (09:00)
[2017-05-27] MEDS ORDERED: NICOTINE 21 MG/24 HR PATCH T-DERMAL SCH (09:00)
[2017-05-27] MEDS ORDERED: PNEUMOCOCCAL POLYVALENT INJ 25 MCG/0.5 ML SYR IM ONE (10:00)
[2017-05-27] MEDS ORDERED: INFLUENZA VIRUS VACCINE (QUADRIVALENT) 0.5 ML SYR IM ONE (10:00)
[2017-05-27 12:19] LABS: ANION GAP 7 MEQ/L (5-15); BICARBONATE 27.9 MEQ/L (21.0-32.0); BLOOD UREA NITROGEN 23 MG/DL (7-18); CHLORIDE 105 MEQ/L (98-107); GLOMERULAR FILTRATION RATE 94 ML/MIN (>89); POTASSIUM 4.1 MEQ/L (3.5-5.1); SODIUM (NA) 140 MEQ/L (136-145)
[2017-05-27 12:22] LABS: HDL CHOLESTEROL 40.9 MG/DL (40.0-60.0); LDL CHOLESTEROL 58 MG/DL (0-99)
--- NOTE | 2017-05-27 13:00 | HHI.HP ---
Provisional Diagnosis Admission Date May 26, 2017 at 13:00 [place] I. 1. Schizophrenia, paranoid type, acute exacerbation [place] II. Deferred Certification of Person's Competence To Provide Express and Informed Consent I have personally examined Briseida Hansen , a person being served at [facility] on, May 27, 2017 13:00. Express and informed consent means consent voluntarily given in writing, by a competent person, after sufficient explanation and disclosure of the subject matter involved to enable the person to make a knowing and willful decision without any element of force, fraud, deceit, duress, or other form of constraint or coercion. This person is 18 years of age or older, is not now known to be incompetent to consent to treatment with a guardian advocate, and does not have a health care surrogate or proxy currently making medical treatment decisions. I have found this person to be one of the following: [x] Competent to provide express and informed consent, as defined above, for voluntary admission to this facility and is competent to provide express and informed consent for treatment. He/she has the consistent capacity to make well reasoned, willful, and knowing decisions concerning his or her medical or mental health treatment. The person fully and consistently understands the purpose of the admission for examination/placement and is fully capable of personally exercising all rights assured under [place] [] Incompetent to provide express and informed consent to voluntary admission, and this is incompetent to provide express and informed consent to treatment. The person must be transferred to involuntary status and a petition for a guardian advocate filed with the Circuit Court. [] Refusing to provide express and informed consent to voluntary admission but is competent to provide express and informed consent for treatment. The person must be discharged or transferred to involuntary status. Form shall be completed within 24 hours of a person's arrival at the receiving facility and filed in the clinical record of each person: 1. Admitted on a voluntary basis 2. Permitted to provide express and informed consent to his/her own treatment 3. Allowed to transfer from involuntary to voluntary status 4. Prior to permitting a person to consent to his or her own treatment after having been previously found incompetent to consent to treatment. History of Present Illness Capacity: Has Capacity HPI Ms. Hansen is a 56-year-old female with a reported history of schizophrenia who presents under a Chao act by outpatient provider alleging that the patient plans to walk into traffic. Patient was seen in the ED by psychiatric nurse practitioner. Reviewing the electronic medical record, I note that the patient was admitted from March into the beginning of May of this year with several different providers, discharged by Dr. Jorge. Patient seen and examined with nurse. Chart reviewed. Case discussed with nursing staff. On my examination today, the patient says that she came into the hospital because "my meds haven't been right." She says that she has been experiencing visual hallucinations, chiefly during the day, of "walking home." She endorses auditory hallucinations "telling me I'm going to get hurt, going to have worms, going to be sick." She says that with the medication adjustments by the psychiatric nurse practitioner yesterday, her psychotic symptoms are improved today. No delusional material. She does endorse severe depression. She endorses hopeless and worthless feelings. Sleep is reportedly poor. She endorses suicidal ideation with plan to walk into traffic. She denies any urge to hurt herself on the inpatient psychiatric unit. No hypomanic or manic symptoms. The remainder of the psychiatric ROS is negative. She does describe a rash under her breasts and abdomen but otherwise verbalizes no physical complaints. Past psychiatric history: The patient reports a history of schizophrenia. She is treated by Jyotsna Villeda at [facility]. She reports that she is adherent with her psychotropic regimen, although she cannot recall what she takes. Her most recent psychiatric admission was here at [place]. She says that she tried to walk into traffic about a month and a half ago but otherwise denies a history of suicide attempts. Review of Systems Except as stated in HPI: all other systems reviewed are Neg Past Psych History Psychological trauma history No reported trauma history Violence risk - others (6 mos) Lower imminent risk. Denies homicidal ideation. No known history of violence. Violence risk - self (6 mos) Concern for elevated risk. Endorses depressive symptoms and suicidal ideation with plan to walk into traffic, which she reportedly did about a month and a half ago. Substance Abuse History Drugs/Alcohol past 12 months Patient denies any current substance use. She does report a history of cannabis use. Past Family Social History Coded Allergies: Benzodiazepines (Verified Allergy, Severe, 04/05/17) [place] [phone]. buspirone (Unverified Allergy, Severe, HEART RACES, 04/02/17) doxycycline (Unverified Allergy, Severe, 04/02/17) minocycline (Unverified Allergy, Severe, 04/02/17) tigecycline (Unverified Allergy, Severe, 04/02/17) diphenhydramine (Unverified Allergy, Intermediate, hives, 04/02/17) diazepam (Unverified Allergy, Mild, HEART RACES, 04/02/17) Penicillins (Verified Allergy, Unknown, 04/02/17) Per [place], [place] [phone]. Sulfa (Sulfonamide Antibiotics) (Verified Allergy, Unknown, 04/02/17) Per [place], [place] [phone]. Tetracyclines (Verified Allergy, Unknown, 04/02/17) Per [place], [place] [phone]. erythromycin base (Unverified Allergy, Unknown, 04/02/17) penicillin V (Unverified Allergy, Unknown, 04/02/17) bupropion (Unverified Adverse Reaction, Intermediate, suicidal, 04/02/17) mometasone furoate (Unverified Adverse Reaction, Intermediate, NOSE BLEED , 04/02/17) ziprasidone (Unverified Adverse Reaction, Intermediate, tremor, 04/02/17) onion (Unverified Adverse Reaction, Mild, emesis, 04/02/17) Uncoded Allergies: MYCINS (Allergy, Severe, 10/19/08) CITRUS (Allergy, Mild, Blader infection , 12/12/11) Macrolides (Allergy, Unknown, 04/02/17) Per [place], [place] [phone]. Quinines (Allergy, Unknown, 04/02/17) Per [place], [place] [phone]. Past Medical History See electronic medical record Active Scripts Risperidone (Risperdal) 4 Mg Tab, 4 MG PO HS for health, #30 TAB 0 Refills Prov:Aman Jorge MD 05/08/17 Risperidone (Risperdal) 3 Mg Tab, 3 MG PO DAILY for healthy, #30 TAB 0 Refills Prov:Aman Jorge MD 05/08/17 Sennosides Liq (Senexon Liq) 8.8 Mg/5 Ml Liq, 8.8 MG PO DAILY for health for 30 Days, #150 ML Prov:Aman Jorge MD 05/08/17 Nystatin Topical (Nystop Topical) 100,000 Unit/Gm Powd, 1 APPLIC TOPICAL Q8HR for health for 30 Days, #1 TUBE Prov:Aman Jorge MD 05/08/17 Pantoprazole (Protonix) 20 Mg Tab, 20 MG PO DAILY for health for 30 Days, #30 TAB Prov:Aman Jorge MD 05/08/17 [Benztropine] 2 MG TAB No Conflict Check, 1 MG PO HS for health for 30 Days, #15 Prov:Aman Jorge MD 05/08/17 Quetiapine (Quetiapine) 100 Mg Tab, 150 MG PO HS for health for 30 Days, #45 TAB Prov:Aman Jorge MD 05/08/17 Gabapentin (Neurontin) 300 Mg Cap, 300 MG PO TID for health for 30 Days, #90 CAP Prov:Aman Jorge MD 05/08/17 Carvedilol (Coreg) 3.125 Mg Tab, 3.125 MG PO BID for health for 30 Days, #60 TAB Prov:Aman Jorge MD 05/08/17 Atorvastatin (Lipitor) 10 Mg Tab, 10 MG PO DAILY for health for 30 Days, #30 TAB Prov:Aman Jorge MD 05/08/17 Reported Medications Paliperidone Palmitate Inj (Invega Sustenna Inj) 234 Mg/1.5 Ml Inj, 234 MG IM [id number] for Schizophrenia, #1 VIAL 0 Refills 04/02/17 [Nizoral Cream] No Conflict Check, TOPICAL 04/02/17 Ipratropium HFA 12.9 GM Inh (Atrovent HFA 12.9 GM Inh) 17 Mcg/Actuation Aer, 1 PUFF INH QID Y for SHORTNESS OF BREATH, #1 INHALER 0 Refills 04/02/17 Clonazepam (Clonazepam) 1 Mg Tab, 1 MG PO TID Y for ANXIETY, #90 TAB 0 Refills 04/02/17 Albuterol 18 GM Inh (Ventolin Hfa 18 GM Inh) 90 Mcg/Act Aer, 2 PUFF INH Q6H Y for SHORTNESS OF BREATH, #1 INHALER 0 Refills 04/02/17 Hydroxyzine Pamoate (Hydroxyzine Pamoate) 50 Mg Cap, 50 MG PO TID, CAP 0 Refills 04/02/17 Current Medications Medications (Trade) Dose Ordered Sig/Cristiane Route Start Time Stop Time Status Last Admin (Tylenol) 650 mg Q4H PRN PO 05/26/17 13:45 (Milk Of Magnesia Liq) 30 ml DAILY PRN PO 05/26/17 13:45 (Mag-Al Plus Susp Liq) 30 ml Q6H PRN PO 05/26/17 13:45 (Habitrol 21 Mg Patch.24 Hr) 1 patch DAILY T-DERMAL 05/27/17 09:00 (Lipitor) 10 mg DAILY PO 05/27/17 09:00 05/27/17 08:51 (Coreg) 3.125 mg BID PO 05/26/17 21:00 05/27/17 08:51 (Neurontin) 300 mg TID PO 05/26/17 18:00 05/27/17 08:51 (SEROquel) 150 mg HS PO 05/26/17 21:00 05/26/17 21:19 Miscellaneous Information 1 DAILY T-DERMAL 05/27/17 09:00 Family Psych History Patient suspects her maternal grandmother may have had some sort of mental illness. Otherwise denies any family psychiatric history. Social History Patient lives alone. She is . She has a daughter who is grown. She has 3 grandchildren. She has no pets. She is high school educated. 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 She is a [employer]. She denies any history. Denies any legal history. Denies any access to guns or firearms. Patient's Strengths (min. 2) In a monitored setting. Verbally fluent. Physical Exam Physical examination completed by ED provider. On my examination today, the patient appears to be in no acute physical distress. No abnormal motor movements noted. Labs and vitals reviewed: Vital Signs Vital Signs Date Time Temp Pulse Resp B/P (MAP) Pulse Ox O2 Delivery O2 Flow Rate FiO2 10/22/17 06:00 97.9 61 16 134/79 (97) 97 05/25/17 18:41 Room Air I/O 05/27/17 05/27/17 05/28/17 08:00 16:00 00:00 Intake Total 240 ml 240 ml Balance 240 ml 240 ml Lab Results Item Value Date Time White Blood Count 12.5 TH/MM3 H 05/25/171999 Hemoglobin 12.5 GM/DL 05/25/171999 Platelet Count 198 TH/MM3 05/25/171999 Sodium Level 140 MEQ/L 05/27/17 111 Potassium Level 4.1 MEQ/L 05/27/17 1112 Chloride Level 105 MEQ/L 05/27/17 1112 Carbon Dioxide Level 27.9 MEQ/L 05/27/17 1112 Blood Urea Nitrogen 23 MG/DL H 05/27/17 1112 Creatinine 0.65 MG/DL 05/27/17 1112 Random Glucose 88 MG/DL 05/27/17 1112 Aspartate Amino Transf (AST/SGOT) 14 U/L L 05/25/17 1440 Alanine Aminotransferase (ALT/SGPT) 30 U/L 05/25/17 1440 Alkaline Phosphatase 82 U/L 05/25/17 1440 Urine Opiates Screen NEG 05/25/17 1640 Urine Barbiturates Screen NEG 05/25/17 1640 Urine Amphetamines Screen NEG 05/25/17 1640 Urine Benzodiazepines Screen NEG 05/25/17 1640 Urine Cocaine Screen NEG 05/25/17 1640 Urine Cannabinoids Screen NEG 05/25/17 1640 Ethyl Alcohol Level LESS THAN 3 MG/DL 05/25/17 1440 Mild leukocytosis noted. Mental Status Examination Appearance: Disheveled Consciousness: Alert Orientation: x4 Motor Activity: Other (no motor abnormalities noted) Speech: Unremarkable Language: Adequate Fund of Knowledge: Adequate Attention and Concentration: Easily Distracted Memory: Unremarkable (fair on clinical exam) Mood: Other (depressed) Affect: Blunt (tending towards flat) Thought Process & Associations: Intact, Other (somatically focused. ) Thought Content: Appropriate Hallucination Type: None Delusion Type: None Suicidal Ideation: Yes Suicidal Plan: Yes (walking into traffic) Suicidal Intention: Yes (denies any urge to hurt herself on the inpatient psychiatric unit) Homicidal Ideation: No Homicidal Plan: No Homicidal Intention: No Insight: Poor Judgment: Impulsive Assessment & Plan Problem List: (1) Schizophrenia, paranoid type ICD Codes: F20.0 - Paranoid schizophrenia Status: Acute Assessment & Plan 56-year-old female with psychiatric history as detailed above who presents under a Chao act. On my examination today, the patient reports low mood and suicidal ideation with plan to walk into traffic. She also presented with audiovisual hallucinations but reports that these are much improved with medication adjustments by the psychiatric nurse practitioner yesterday. Mood symptoms presently are patient's chief concern. We discuss pharmacotherapeutic strategies to ameliorate patient's low mood and settle on a trial of SSRI. Patient requires psychiatric hospitalization at this time for safety, observation and stabilization. Admit inpatient. Voluntary status. Recheck CBC in morning to trend leukocytosis. Start Lexapro 10 mg daily for mood. Continue Seroquel 150 mg at bedtime. Patient last received Invega Sustenna 234 mg on 05/01 and so will be due for this again on 05/29, and I have ordered this dose. Continue beta jalyn, statin and gabapentin. I will resume nystatin powder for rash as recommended by the hospitalist last time. Vitals every shift. Counselor to see and obtain collateral. Disposition planning. Estimated length of stay: 5- 7 days. Discharge Planning Pending stabilization Request HC Surrog/Guard Advoc?: No Camilo Aguayo MD May 27, 2017 13:00
[2017-05-27] MEDS: NYSTATIN 100,000 U/GM PWD 15 GM BTL TOPICAL SCH ×2 (14:00→21:58)
[2017-05-27 14:01] LABS: HEMOGLOBIN A1b 0.9 %; HEMOGLOBIN Ao 85.5 %; HEMOGLOBIN LA1C 1.9 %; HEMOGLOBIN P3 3.8 %
[2017-05-27] MEDS ORDERED: RESP: ALBUTEROL 2.5 MG/IPRATROPIUM 0.5 MG NEB (PRN) NEB (14:15)
[2017-05-27 17:30] VITALS: BP 109/56; PULSE 70; RESP 16; TEMP 98.3
[2017-05-27] MEDS: QUEtiapine FUMARATE 100 MG TAB PO SCH (21:00)
[2017-05-28] MEDS: NYSTATIN 100,000 U/GM PWD 15 GM BTL TOPICAL SCH ×3 (05:26→20:24)
[2017-05-28 06:06] VITALS: BP 120/66; PULSE 62; RESP 15; TEMP 98; O2SAT 95
[2017-05-28] MEDS: ATORVASTATIN 10 MG TAB PO SCH (08:36)
[2017-05-28] MEDS: GABAPENTIN 300 MG CAP PO SCH ×3 (08:36→17:10)
[2017-05-28] MEDS: ESCITALOPRAM OXALATE 10 MG TAB PO SCH (08:36)
[2017-05-28] MEDS: CARVEDILOL 3.125 MG TAB PO SCH ×2 (08:36→20:24)
[2017-05-28 09:15] LABS: AUTOMATED NEUTROPHIL # 7.9 TH/MM3 (1.8-7.7); BASOPHIL # 0.1 TH/MM3 (0-0.2); BASOPHIL % 0.8 % (0.0-2.0); EOSINOPHIL # 0.4 TH/MM3 (0-0.4); EOSINOPHIL % 3.2 % (0.0-4.0); HEMATOCRIT 44.1 % (35.0-46.0); LYMPH % 24.5 % (9.0-44.0); MEAN CELL VOLUME 94.4 FL (80.0-100.0); MEAN CORPUSCULAR HGB CONC 33.9 % (32.0-36.0); MONO % 6.1 % (0.0-8.0); NEUT % 65.4 % (16.0-70.0); PLATELET COUNT 169 TH/MM3 (150-450); RED BLOOD COUNT 4.67 MIL/MM3 (4.00-5.30); RED CELL DISTRIBUTION WIDTH 13.4 % (11.6-17.2); WHITE BLOOD COUNT 12.1 TH/MM3 (4.0-11.0)
[2017-05-28 09:20] LABS: HEMO FLAGS AUTO DIFF
[2017-05-28 09:50] LABS: PLATELET ESTIMATE SMEAR NORMAL (NORMAL); PLATELET MORPHOLOGY CLUMPED (NORMAL); SCAN/DIFF AUTO DIFF CONFIRMED
--- NOTE | 2017-05-28 12:51 | HHI.PYPN ---
Subjective Remarks Patient seen for follow-up, chart review. Patient found lying in hospital bed, cooperative. Patient states that she was brought in under [place] act for feeling depressed and suicidal ideations stating "I couldn't handle it referring to cooking and cleaning her apartment. Patient states that her sister also agreed that she was not able to manage these chores on her own. Patient states that she spoke with her psychiatrist stating "that I wanted to walk into traffic" due to feeling more depressed and overwhelmed. Patient is currently not here on voluntary status. Patient states that she continues to feel depressed with feeling "better" and continues to have suicidal ideations at this time. Patient states that mostly of a stressor recently was "sister on my case for making cleaning after myself" and felt hopeless and also feeling sad about having ended her relationship with one month ago. Patient this time feels "good", denies any perceptual disturbances at this time. Review of Systems Except as stated in HPI: all other systems reviewed are Neg Mental Status Examination Appearance: Disheveled Consciousness: Alert Orientation: x4 Motor Activity: Other (no motor abnormalities noted) Speech: Unremarkable Language: Adequate Fund of Knowledge: Adequate Attention and Concentration: Easily Distracted Memory: Unremarkable (fair on clinical exam) Mood: Sad Affect: Other (restricted) Thought Process & Associations: Intact, Linear Thought Content: Appropriate Hallucination Type: None Delusion Type: Paranoid Suicidal Ideation: Yes Suicidal Plan: Yes (walking into traffic) Suicidal Intention: No Homicidal Ideation: No Homicidal Plan: No Homicidal Intention: No Insight: Poor Judgment: Impulsive Results Labs Labs reviewed. White cell count slightly elevated Test 05/28/17 07:49 White Blood Count 12.1 TH/MM3 Red Blood Count 4.67 MIL/MM3 Hemoglobin 15.0 GM/DL Hematocrit 44.1 % Mean Corpuscular Volume 94.4 FL Mean Corpuscular Hemoglobin 32.0 PG Mean Corpuscular Hemoglobin Concent 33.9 % Red Cell Distribution Width 13.4 % Platelet Count 169 TH/MM3 Mean Platelet Volume 9.0 FL Neutrophils (%) (Auto) 65.4 % Lymphocytes (%) (Auto) 24.5 % Monocytes (%) (Auto) 6.1 % Eosinophils (%) (Auto) 3.2 % Basophils (%) (Auto) 0.8 % Neutrophils # (Auto) 7.9 TH/MM3 Lymphocytes # (Auto) 3.0 TH/MM3 Monocytes # (Auto) 0.7 TH/MM3 Eosinophils # (Auto) 0.4 TH/MM3 Basophils # (Auto) 0.1 TH/MM3 CBC Comment AUTO DIFF Differential Comment AUTO DIFF CONFIRMED Platelet Estimate NORMAL Platelet Morphology Comment CLUMPED Vitals/IOs Vital Signs Date Time Temp Pulse Resp B/P (MAP) Pulse Ox O2 Delivery O2 Flow Rate FiO2 05/28/17 06:06 98.0 62 15 120/66 (84) 95 05/25/17 18:41 Room Air Intake and Output 05/28/17 05/28/17 05/29/17 08:00 16:00 00:00 Intake Total 240 ml Balance 240 ml Assessment & Plan Problem List: (1) Schizophrenia, paranoid type ICD Codes: F20.0 - Paranoid schizophrenia Status: Acute Assessment & Plan Estimated LOS: 5-7 days. Patient this time continues to be noted to be depressed, continues to endorse this ideations at this time denies any thoughts of hurting herself or acting on these thoughts here at the unit. We'll continue escitalopram 10 mg by mouth daily for depression, continue quetiapine 150 mg by mouth at bedtime, gabapentin 300 mg by mouth 3 times a day, Cogentin 1 mg at bedtime, patient will receive REID and Invega Sustenna 234mg every 28 days with next dose tomorrow 05/29/17. Continue rest of medications. Recommendations as per primary medical team. Discharge planning in progress Justification for Cont. Inpt. At risk for further decompensation if at lower level of care Discharge Planning Patient will likely be discharged to an assisted living facility or fdc this patient will require assistance. Request HC Surrog/Guard Advoc?: Aman Pringle MD May 28, 2017 12:51
[2017-05-28 18:26] VITALS: BP 90/59; PULSE 76; RESP 16; TEMP 98.2; O2SAT 76
[2017-05-28 20:21] VITALS: BP 108/55; PULSE 61; RESP 18; O2SAT 97
[2017-05-28] MEDS: QUEtiapine FUMARATE 100 MG TAB PO SCH (20:23)
[2017-05-29] MEDS: NYSTATIN 100,000 U/GM PWD 15 GM BTL TOPICAL SCH ×3 (06:06→20:25)
[2017-05-29 06:31] VITALS: BP 118/56; PULSE 59; RESP 16; TEMP 97.8; O2SAT 96
[2017-05-29] MEDS: ATORVASTATIN 10 MG TAB PO SCH (08:28)
[2017-05-29] MEDS: GABAPENTIN 300 MG CAP PO SCH ×3 (08:28→17:03)
[2017-05-29] MEDS: ESCITALOPRAM OXALATE 10 MG TAB PO SCH (08:28)
[2017-05-29] MEDS: CARVEDILOL 3.125 MG TAB PO SCH ×3 (08:33→20:24)
[2017-05-29] MEDS ORDERED: PALIPERIDONE PALMITATE 234 MG/1.5 ML SYRINGE IM SCH (12:00)
--- NOTE | 2017-05-29 13:23 | PD.TTN ---
Patient Problems 1. Discharge planning 2. Medication compliance 3. Knowledge deficit 4. Lack of coping skills Progress Toward Goals Provider Present: Dr. Nell Jorge Provider Input: changed the medications in need for placement and wanting to go to [facility] Nurse(s) Input: Eral: med compliant , cooperative Psychiatric Counselors Present: Kayla Alves LCSW Psych Therapist Input: still some paranoia but wanting to live in a placement faxed referral to [facility] Spec/RT/OT/OWEN Present: Sachin Barajas OT Occupational Therapist Input: Edison: fair participation, unstable behaviors Kayla Alves LCSW May 29, 2017 13:23
--- NOTE | 2017-05-29 15:32 | HHI.PYPN ---
Subjective Remarks Patient to follow, chart review. Patient found lying in hospital bed, cooperative interview. Patient states that she feels somewhat confused and that the voices are "bad". He describes them as mumbling and sounds far away. She then reported that she had gone to group activity outside and that a voice was telling her to go "to the roads" which she then decided to come back in 2 her room. Patient aware that she is due for her monthly long-acting injectable of Invega Sustenna. 234mg IM. Patient states that she's been having difficulty with bowel movement is feeling constipated and states that her last, was 4 days ago. Patient states that she showers every day and has been feeling tired lately was encouraged to continue participating in groups and activities while on the unit which she acknowledged. Review of Systems Except as stated in HPI: all other systems reviewed are Neg Mental Status Examination Appearance: Disheveled Consciousness: Alert Orientation: x4 Motor Activity: Other (no motor abnormalities noted) Speech: Unremarkable Language: Adequate Fund of Knowledge: Adequate Attention and Concentration: Easily Distracted Memory: Unremarkable (fair on clinical exam) Mood: Other ("not good") Affect: Other (restricted) Thought Process & Associations: Intact, Linear Thought Content: Appropriate Hallucination Type: Auditory (mumbling but at times command type) Delusion Type: Paranoid Suicidal Ideation: Yes Suicidal Plan: No Suicidal Intention: No Homicidal Ideation: No Homicidal Plan: No Homicidal Intention: No Insight: Poor Judgment: Impulsive Results Vitals/IOs Vital Signs Date Time Temp Pulse Resp B/P (MAP) Pulse Ox O2 Delivery O2 Flow Rate FiO2 05/29/17 06:31 97.8 59 16 118/56 (76) 96 05/25/17 18:41 Room Air Intake and Output 05/29/17 05/29/17 05/30/17 08:00 16:00 00:00 Intake Total 320 ml 240 ml Balance 320 ml 240 ml Assessment & Plan Problem List: (1) Schizophrenia, paranoid type ICD Codes: F20.0 - Paranoid schizophrenia Status: Acute Assessment & Plan Patient this time continues to endorse some auditory hallucinations and some paranoia. Patient will receive her monthly long-acting injectable of Invega Sustenna 234mg IM today. We'll not add any more psychotropic medications for now as patient will have received a long-acting injectable today. Patient may need adjustment with timing interval between injections. Patient with reported constipation with last 4 days ago. Will encourage increase hydration along with when necessary milk of magnesium plan Will request Hospital consult for evaluation as patient had previous difficulty during her last admission. Continue current medications for now. Continue to encourage patient to maintain hygiene and participate in groups and activities while on the unit. Discharge planning in progress Justification for Cont. Inpt. At risk for further decompensation if at lower level of care Discharge Planning Patient to be discharged to an assisted living facility upon discharge. Request HC Surrog/Guard Advoc?: No Aman Jorge MD May 29, 2017 15:32
[2017-05-29] MEDS: MAGNESIUM HYDROXIDE SUSP 30 ML CUP PO PRN (15:40)
[2017-05-29 18:00] VITALS: BP 133/60; PULSE 58; RESP 18; TEMP 97.4; O2SAT 98
[2017-05-29] MEDS: QUEtiapine FUMARATE 100 MG TAB PO SCH (20:25)
[2017-05-30] MEDS: NYSTATIN 100,000 U/GM PWD 15 GM BTL TOPICAL SCH ×3 (05:42→21:46)
[2017-05-30 06:27] VITALS: BP 114/53; PULSE 62; RESP 16; TEMP 97.6; O2SAT 94
[2017-05-30] MEDS: GABAPENTIN 300 MG CAP PO SCH ×3 (09:00→18:00)
[2017-05-30] MEDS: CARVEDILOL 3.125 MG TAB PO SCH ×2 (09:00→21:00)
[2017-05-30] MEDS: ESCITALOPRAM OXALATE 10 MG TAB PO SCH (09:00)
[2017-05-30] MEDS: ATORVASTATIN 10 MG TAB PO SCH (09:00)
--- NOTE | 2017-05-30 13:12 | HHI.PYPN ---
Subjective Remarks Patient seen for follow-up, chart reviewed. Patient found lying on hospital bed , calm and cooperative with interview. Patient states that she is feeiling "ok" and feeling better. She reports that she was able to be out of her room more and attend more groups. She reports sleeping better, with less AH which they sound "far away" but continues to be noted to be somewhat paranoid. Patient denies any SI/HI, or VH. Review of Systems Except as stated in HPI: all other systems reviewed are Neg Mental Status Examination Appearance: Disheveled Consciousness: Alert Orientation: x4 Motor Activity: Other (no motor abnormalities noted) Speech: Unremarkable Language: Adequate Fund of Knowledge: Adequate Attention and Concentration: Easily Distracted Memory: Unremarkable (fair on clinical exam) Mood: Other ("better") Affect: Other (restricted) Thought Process & Associations: Intact, Linear Thought Content: Appropriate Hallucination Type: Auditory Delusion Type: Paranoid Suicidal Ideation: Yes Suicidal Plan: No Suicidal Intention: No Homicidal Ideation: No Homicidal Plan: No Homicidal Intention: No Insight: Poor Judgment: Impulsive Results Vitals/IOs Vital Signs Date Time Temp Pulse Resp B/P (MAP) Pulse Ox O2 Delivery O2 Flow Rate FiO2 05/30/17 06:27 97.6 62 16 114/53 (73) 94 Intake and Output 05/30/17 05/30/17 05/31/17 08:00 16:00 00:00 Intake Total 180 ml 240 ml Output Total 1 ml Balance 179 ml 240 ml Assessment & Plan Problem List: (1) Schizophrenia, paranoid type ICD Codes: F20.0 - Paranoid schizophrenia Status: Acute Assessment & Plan Patient with noted improvement of mood and some decrease in AH but continues to have some paranoia . Patient received REID of Invega Sustenna 234mg IM with follow up dose in 28 days (06/26/17). Hospitalist consult appreciated. Patient to continue recommendations as per primary medical team. Continue current treatment for now as patient is reporting some improvement. Discharge planning in progress. Justification for Cont. Inpt. At risk for further decompensation if at lower level of care. Discharge Planning Patient to be discharged to [facility] when psychiatrically stable. Request HC Surrog/Guard Advoc?: No Aman Jorge MD May 30, 2017 13:12
--- NOTE | 2017-05-30 14:22 | PD.TTN ---
Patient Problems 1. Discharge planning 2. Medication compliance 3. Knowledge deficit 4. Lack of coping skills Progress Toward Goals Provider Present: Dr. Nell Jorge Provider Input: changed the medications in need for placement and wanting to go to [facility] 05/30/17 needs to live in a facility still symptomatic and got her injectable Nurse(s) Input: Earl: med compliant , cooperative 05/30: Kristine: isolative took medications Psychiatric Counselors Present: Kayla Alves LCSW Psych Therapist Input: still some paranoia but wanting to live in a placement faxed referral to [facility] 05/30 s/w sister of patient and she located local [facility] in [place] the Guardian home who will be out to assess patient tomorrow patient has been looking for re-assurance and constantly pre-occupied and anxious becoming consumed with what is being discussed Group Spec/RT/OT/OWEN Present: Sachin Barajas OT Group Spec/RT/OT/OWEN Input: 05/30 Alyss: attends select groups [employer] and remains paranoid Occupational Therapist Input: Edison: fair participation, unstable behaviors Kayla Alves LCSW May 30, 2017 14:22
--- NOTE | 2017-05-30 15:40 | PD.CONS ---
HPI Service [facility] Consult Requested By Dr. Jorge Reason for Consult Medical management and constipation Primary Care Physician Krista Mcconnell MD Diagnoses: History of Present Illness This is a 56-year-old female with past medical history of hypertension, coronary disease, GERD, hyperlipidemia, COPD, tobacco abuse, and paranoid schizophrenia who was admitted secondary to paranoid schizophrenia [facility] consulted for medical management and constipation. She stated that she has not had a bowel movement since she's been in inpatient psychiatry. She was given milk of magnesia with no improvement. Patient stated that usually an enema works and is requesting an enema. Patient has no other complaints. 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 She stated per her GI physician they do not recommend any invasive treatment. All other review of system reviewed and negative. Past Family Social History Allergies: Coded Allergies: Benzodiazepines (Verified Allergy, Severe, 04/05/17) Per [place], [place] [phone]. buspirone (Unverified Allergy, Severe, HEART RACES, 04/02/17) doxycycline (Unverified Allergy, Severe, 04/02/17) minocycline (Unverified Allergy, Severe, 04/02/17) tigecycline (Unverified Allergy, Severe, 04/02/17) diphenhydramine (Unverified Allergy, Intermediate, hives, 04/02/17) diazepam (Unverified Allergy, Mild, HEART RACES, 04/02/17) Penicillins (Verified Allergy, Unknown, 04/02/17) [place] [phone]. Sulfa (Sulfonamide Antibiotics) (Verified Allergy, Unknown, 04/02/17) [place] [phone]. Tetracyclines (Verified Allergy, Unknown, 04/02/17) [place] [phone]. erythromycin base (Unverified Allergy, Unknown, 04/02/17) penicillin V (Unverified Allergy, Unknown, 04/02/17) bupropion (Unverified Adverse Reaction, Intermediate, suicidal, 04/02/17) mometasone furoate (Unverified Adverse Reaction, Intermediate, NOSE BLEED , 04/02/17) ziprasidone (Unverified Adverse Reaction, Intermediate, tremor, 04/02/17) onion (Unverified Adverse Reaction, Mild, emesis, 04/02/17) Uncoded Allergies: MYCINS (Allergy, Severe, 10/19/08) CITRUS (Allergy, Mild, Blader infection , 12/12/11) Macrolides (Allergy, Unknown, 04/02/17) Per Pharmacist - [place], [place] [phone]. Quinines (Allergy, Unknown, 04/02/17) Per Pharmacist - [place], [place] [phone]. Past Medical History Hypertension GERD CAD COPD Tobacco abuse Paranoid schizophrenia Neuropathy Hyperlipidemia Chronic back and neck pain Past Surgical History Cholecystectomy Reported Medications Reported Meds & Active Scripts Active Risperdal (Risperidone) 4 Mg Tab 4 Mg PO HS Risperdal (Risperidone) 3 Mg Tab 3 Mg PO DAILY Senexon Liq (Sennosides) 8.8 Mg/5 Ml Liq 8.8 Mg PO DAILY 30 Days Nystop Topical (Nystatin Topical) 100,000 Unit/Gm Powd 1 Applic TOPICAL Q8HR 30 Days Protonix (Pantoprazole Sodium) 20 Mg Tab 20 Mg PO DAILY 30 Days [Benztropine] 2 MG Tab 1 Mg PO HS 30 Days Quetiapine (Quetiapine Fumarate) 100 Mg Tab 150 Mg PO HS 30 Days Neurontin (Gabapentin) 300 Mg Cap 300 Mg PO TID 30 Days Coreg (Carvedilol) 3.125 Mg Tab 3.125 Mg PO BID 30 Days Lipitor (Atorvastatin Calcium) 10 Mg Tab 10 Mg PO DAILY 30 Days Reported Invega Sustenna Inj (Paliperidone Palmitate) 234 Mg/1.5 Ml Inj 234 Mg IM [id number] [Nizoral Cream] TOPICAL Atrovent HFA 12.9 GM Inh (Ipratropium [place]) 17 Mcg/Actuation Aer 1 Puff INH QID PRN Clonazepam 1 Mg Tab 1 Mg PO TID PRN Ventolin Hfa 18 GM Inh (Albuterol Sulfate) 90 Mcg/Act Aer 2 Puff INH Q6H PRN Hydroxyzine Pamoate 50 Mg Cap 50 Mg PO TID Active Ordered Medications Current Medications Acetaminophen (Tylenol) 650 mg Q4H PRN PO Pain 1-5 or Temp >101F; Start at 13:45 Magnesium Hydroxide (Milk Of Magnesia Liq) 30 ml DAILY PRN PO CONSTIPATION Last administered on 05/29/17 15:40; Start 05/26/17 at 13:45 Al Hydrox/Mg Hydrox/Simethicone (Mag-Al Plus Susp Liq) 30 ml Q6H PRN PO DYSPEPSIA; Start 05/26/17 at 13:45 Nicotine (Habitrol 21 Mg Patch.24 Hr) 1 patch DAILY T-DERMAL ; Start 05/27/17 at 09:00; Stop 05/27/17 at 13:44; Status DC Atorvastatin Calcium (Lipitor) 10 mg DAILY PO Last administered on 05/30/17 09:00; Start 05/27/17 at 09:00 Carvedilol (Coreg) 3.125 mg BID PO Last administered on 05/30/17 09:00; Start 05/26/17 at 21:00 Gabapentin (Neurontin) 300 mg TID PO Last administered on 05/30/17 13:39; Start 05/26/17 at 18:00 Quetiapine Fumarate (SEROquel) 150 mg HS PO Last administered on 05/29/17 20: 25; Start 05/26/17 at 21:00 Miscellaneous Information 1 DAILY T-DERMAL ; Start 05/27/17 at 09:00; Stop at 13:44; Status DC Pneumococcal Polyvalent Vaccine (Pneumovax-23 Inj) 25 mcg ONCE ONCE IM ; Start 05/27/17 at 10:00; Stop 05/27/17 at 10:01; Status DC Influenza Virus Vaccine (Flu (Quadrivalent) Vaccine Inj) 0.5 ml ONCE ONCE IM ; Start 05/27/17 at 10:00; Stop 05/27/17 at 10:01; Status DC Escitalopram Oxalate (Lexapro) 10 mg DAILY PO Last administered on 05/30/17 09:00; Start 05/28/17 at 09:00 Nystatin (Mycostatin Powder) 1 applic Q8HR TOPICAL Last administered on 09:10; Start 05/27/17 at 14:00 Paliperidone Palmitate (Invega Sustenna Inj) 234 mg Q28D IM Last administered on 10/24/17at 15:18; Start 05/29/17 at 12:00 Albuterol/ Ipratropium (Duoneb Neb) 1 ampule Q6HR NEB PRN NEB WHEEZING/SOB; Start 05/27/17 at 14:15 Senna/Docusate Sodium (Nkechi-Colace) 1 tab BID PO ; Start 05/30/17 at 21:00; Status UNV Bisacodyl (Dulcolax Supp) 10 mg ONCE ONCE RECTAL ; Start 05/30/17 at 15:30; Stop 05/30/17 at 15:31; Status UNV Family History Grandmother and maternal family medical history significant for "lung disease". Social History smokes 2 ppd tobacco. Denies any alcohol use. Denies any illicit drug use. Physical Exam Vital Signs Vital Signs Date Time Temp Pulse Resp B/P (MAP) Pulse Ox O2 Delivery O2 Flow Rate FiO2 05/30/17 06:27 97.6 62 16 114/53 (73) 94 05/29/17 18:00 97.4 58 18 133/60 (84) 98 Physical Exam GENERAL: This is a well-nourished, well-developed patient, in no apparent distress. SKIN: No rashes, ecchymoses or lesions. Cool and dry. HEAD: Atraumatic. Normocephalic. No temporal or scalp tenderness. EYES: Pupils equal round and reactive. Extraocular motions intact. No scleral icterus. No injection or drainage. ENT: Nose without bleeding, purulent drainage or septal hematoma. Throat without erythema, tonsillar hypertrophy or exudate. Uvula midline. Airway patent. NECK: Trachea midline. No JVD or lymphadenopathy. Supple, nontender, no meningeal signs. CARDIOVASCULAR: Regular rate and rhythm without murmurs, gallops, or rubs. RESPIRATORY: Clear to auscultation. Breath sounds equal bilaterally. No wheezes , rales, or rhonchi. GASTROINTESTINAL: Abdomen soft, non-tender, nondistended. No hepato-splenomegaly , or palpable masses. No guarding. MUSCULOSKELETAL: Extremities without clubbing, cyanosis, or edema. No joint tenderness, effusion, or edema noted. No calf tenderness. Negative Homans sign bilaterally. NEUROLOGICAL: Awake and alert. Cranial nerves II through XII intact. Motor and sensory grossly within normal limits. Five out of 5 muscle strength in all muscle groups. Normal speech. Result Diagram: 05/28/17 0749 05/27/17 1112 Assessment and Plan Assessment and Plan This is a 56-year-old female who was admitted due to episode of paranoid schizophrenia [facility] consulted for medical management and due to constipation Constipation -Patient does have a history of fissure in which she stated that her GI physician will not do any procedure. She is appears to be very comfortable. Need to prevent constipation for improvement of symptoms. -Will add Nkechi-Colace. Patient also requesting an enema and stated that that was only medication that helps with her constipation and rectal fissure. Will give suppository. -Continue to monitor for bowel movements. -Patient is to follow-up with her GI physician in regards to chronic treatment for rectal fissure. Paranoid schizophrenia -Being managed by primary team. Hypertension/GERD/CAD/COPD/Tobacco abuse /Neuropathy/Hyperlipidemia/Chronic back and neck pain Continue with home regimen. DVT prophylaxis -Encourage ambulation. Discussed Condition With patient Margaret Lopez MD May 30, 2017 15:40
[2017-05-30] MEDS ORDERED: BISACODYL 10 MG SUPP RECTAL ONE (16:00)
[2017-05-30 17:45] VITALS: BP 100/58; PULSE 65; RESP 17; TEMP 97.7; O2SAT 99
[2017-05-30] MEDS: QUEtiapine FUMARATE 100 MG TAB PO SCH (21:00)
[2017-05-30] MEDS: DOCUSATE SODIUM 50 MG/SENNA 8.6 MG TAB PO SCH (21:38)
[2017-05-31 05:35] VITALS: BP 114/58; PULSE 58; RESP 15; TEMP 97.4; O2SAT 96
[2017-05-31] MEDS: NYSTATIN 100,000 U/GM PWD 15 GM BTL TOPICAL SCH ×3 (05:35→21:28)
[2017-05-31] MEDS: DOCUSATE SODIUM 50 MG/SENNA 8.6 MG TAB PO SCH ×2 (09:00→21:27)
[2017-05-31] MEDS: GABAPENTIN 300 MG CAP PO SCH ×3 (09:12→17:22)
[2017-05-31] MEDS: ATORVASTATIN 10 MG TAB PO SCH (09:12)
[2017-05-31] MEDS: CARVEDILOL 3.125 MG TAB PO SCH ×2 (09:12→21:00)
[2017-05-31] MEDS: ESCITALOPRAM OXALATE 10 MG TAB PO SCH (09:12)
--- NOTE | 2017-05-31 12:42 | HHI.PYPN ---
Subjective Remarks Patient seen for follow-up, chart review. Patient found lying in hospital bed, cooperative. Patient states feeling "not good", states that she had have a bowel movement yesterday after the provided with a suppository a continues to have some loose stools. Patient states states that she had refused her Colace today because of the same. Patient reports feeling tired, depressed, continues have auditory hallucinations but are "far away". Patient aware that she will be visited by a employer relations representative from an assisted living facility where she was excited about. Patient agreed to participate in groups activities to be more visible on unit and be less isolative. Review of Systems Except as stated in HPI: all other systems reviewed are Neg Mental Status Examination Appearance: Disheveled (showers daily) Consciousness: Alert Orientation: x4 Motor Activity: Other (no motor abnormalities noted) Speech: Unremarkable Language: Adequate Fund of Knowledge: Adequate Attention and Concentration: Easily Distracted Memory: Unremarkable (fair on clinical exam) Mood: Sad Affect: Other (restricted) Thought Process & Associations: Intact, Linear Thought Content: Appropriate Hallucination Type: Auditory Delusion Type: Paranoid Suicidal Ideation: No Suicidal Plan: No Suicidal Intention: No Homicidal Ideation: No Homicidal Plan: No Homicidal Intention: No Insight: Poor Judgment: Impulsive Results Vitals/IOs Vital Signs Date Time Temp Pulse Resp B/P (MAP) Pulse Ox O2 Delivery O2 Flow Rate FiO2 05/31/17 05:35 97.4 58 15 114/58 (76) 96 Intake and Output 05/31/17 05/31/17 06/01/17 08:00 16:00 00:00 Intake Total 240 ml 240 ml Balance 240 ml 240 ml Assessment & Plan Problem List: (1) Schizophrenia, paranoid type ICD Codes: F20.0 - Paranoid schizophrenia Status: Acute Assessment & Plan Patient noted to be depressed today he continues to have auditory hallucinations which are "far away"but has not endorsed he was bizarre delusions that she has in the past in prior admissions, continues to have some paranoid ideations in general but appears to be part of her baseline., We'll increase Lexapro to 20 mg by mouth daily for depression. Continue a medications. Continue to encourage patient to maintain personal hygiene and participate in groups and activities on the unit. Discharge planning in progress Justification for Cont. Inpt. At risk for further decompensation if at lower level of care Discharge Planning Patient may be discharged to assisted-living facility once one is acquired. Request HC Surrog/Guard Advoc?: No Aman Jorge MD May 31, 2017 12:42
[2017-05-31 18:19] VITALS: BP 107/54; PULSE 73; RESP 16; TEMP 97.4; O2SAT 95
[2017-05-31] MEDS: QUEtiapine FUMARATE 100 MG TAB PO SCH (21:00)
[2017-06-01] MEDS: NYSTATIN 100,000 U/GM PWD 15 GM BTL TOPICAL SCH ×3 (05:54→20:01)
[2017-06-01 06:25] VITALS: BP 142/61; PULSE 49; RESP 15; TEMP 98; O2SAT 95
[2017-06-01] MEDS: GABAPENTIN 300 MG CAP PO SCH ×3 (08:47→18:19)
[2017-06-01] MEDS: ESCITALOPRAM OXALATE 20 MG TAB PO SCH (08:47)
[2017-06-01] MEDS: ATORVASTATIN 10 MG TAB PO SCH (08:48)
[2017-06-01] MEDS: DOCUSATE SODIUM 50 MG/SENNA 8.6 MG TAB PO SCH ×2 (08:48→20:01)
[2017-06-01] MEDS: CARVEDILOL 3.125 MG TAB PO SCH ×2 (08:52→21:00)
--- NOTE | 2017-06-01 16:32 | HHI.PR ---
Subjective Remarks Follow-up for medical conditions Patient seems to be hallucinating more today. She stated that she hears voices and that she was told that God will help her. Due to hallucination unable to get an accurate assessment. Objective Vitals Vital Signs Date Time Temp Pulse Resp B/P (MAP) Pulse Ox O2 Delivery O2 Flow Rate FiO2 06/01/17 06:25 98.0 49 15 142/61 (88) 95 05/31/17 18:19 97.4 73 16 107/54 (71) 95 I/O 05/31/17 05/31/17 05/31/17 06/01/17 06/01/17 06/01/17 07:00 15:00 23:00 07:00 15:00 23:00 Intake Total 0 ml 480 ml 360 ml 0 ml 960 ml Balance 0 ml 480 ml 360 ml 0 ml 960 ml Intake Oral 0 ml 480 ml 360 ml 0 ml 960 ml # Voids 0 1 1 Result Diagram: 05/28/17 0749 Objective Remarks GENERAL: Patient was found sleeping but was able to arouse. She is hallucinating. CARDIOVASCULAR: Regular rate and rhythm without murmurs, gallops, or rubs. RESPIRATORY: Breath sounds equal bilaterally. No accessory muscle use. GASTROINTESTINAL: Abdomen soft, non-tender, nondistended. MUSCULOSKELETAL: No cyanosis, or edema. NEURO: AAO 1 only oriented to self. Motor grossly intact. Medications and IVs Current Medications Acetaminophen (Tylenol) 650 mg Q4H PRN PO Pain 1-5 or Temp >101F; Start at 13:45 Magnesium Hydroxide (Milk Of Magnesia Liq) 30 ml DAILY PRN PO CONSTIPATION Last administered on 05/29/17 15:40; Start 05/26/17 at 13:45 Al Hydrox/Mg Hydrox/Simethicone (Mag-Al Plus Susp Liq) 30 ml Q6H PRN PO DYSPEPSIA; Start 05/26/17 at 13:45 Nicotine (Habitrol 21 Mg Patch.24 Hr) 1 patch DAILY T-DERMAL ; Start 05/27/17 at 09:00; Stop 05/27/17 at 13:44; Status DC Atorvastatin Calcium (Lipitor) 10 mg DAILY PO Last administered on 06/01/17 08:48; Start 05/27/17 at 09:00 Carvedilol (Coreg) 3.125 mg BID PO Last administered on 05/31/17 09:12; Start 05/26/17 at 21:00 Gabapentin (Neurontin) 300 mg TID PO Last administered on 06/01/17 13:42; Start 05/26/17 at 18:00 Quetiapine Fumarate (SEROquel) 150 mg HS PO Last administered on 05/31/17 21: 00; Start 05/26/17 at 21:00 Miscellaneous Information 1 DAILY T-DERMAL ; Start 05/27/17 at 09:00; Stop at 13:44; Status DC Pneumococcal Polyvalent Vaccine (Pneumovax-23 Inj) 25 mcg ONCE ONCE IM ; Start 05/27/17 at 10:00; Stop 05/27/17 at 10:01; Status DC Influenza Virus Vaccine (Flu (Quadrivalent) Vaccine Inj) 0.5 ml ONCE ONCE IM ; Start 05/27/17 at 10:00; Stop 05/27/17 at 10:01; Status DC Escitalopram Oxalate (Lexapro) 10 mg DAILY PO Last administered on 05/31/17 09:12; Start 05/28/17 at 09:00; Stop 05/31/17 at 12:40; Status DC Nystatin (Mycostatin Powder) 1 applic Q8HR TOPICAL Last administered on 14:00; Start 05/27/17 at 14:00 Paliperidone Palmitate (Invega Sustenna Inj) 234 mg Q28D IM Last administered on 05/29/17 15:18; Start 05/29/17 at 12:00 Albuterol/ Ipratropium (Duoneb Neb) 1 ampule Q6HR NEB PRN NEB WHEEZING/SOB; Start 05/27/17 at 14:15 Senna/Docusate Sodium (Nkechi-Colace) 1 tab BID PO Last administered on 08:48; Start 05/30/17 at 21:00 Bisacodyl (Dulcolax Supp) 10 mg ONCE ONCE RECTAL Last administered on 16:00; Start 05/30/17 at 16:00; Stop 05/30/17 at 16:01; Status DC Escitalopram Oxalate (Lexapro) 20 mg DAILY PO Last administered on 10/27/17at 08:47; Start 06/01/17 at 09:00 A/P Assessment and Plan This is a 56-year-old female who was admitted due to episode of paranoid schizophrenia [facility] consulted for medical management and due to constipation Constipation -Patient does have a history of fissure in which she stated that her GI physician will not do any procedure. She is appears to be very comfortable. Need to prevent constipation for improvement of symptoms. -Continue with Nkechi-Colace. Status post suppository given. -Continue to monitor for bowel movements. -Patient is to follow-up with her GI physician in regards to chronic treatment for rectal fissure. Paranoid schizophrenia - Her psychosis seems to be worse today. Management per primary team. Hypertension/GERD/CAD/COPD/Tobacco abuse /Neuropathy/Hyperlipidemia/Chronic back and neck pain Continue with home regimen. DVT prophylaxis -Encourage ambulation. Margaret Lopez MD Jun 01, 2017 16:32
--- NOTE | 2017-06-01 16:35 | HHI.PYPN ---
Subjective Remarks Patient seen for follow-up, chart reviewed. Patient found lying on hospital bed , calm and cooperative with interview. Patient states that her mood has been "not good" but reports continuing to shower daily, and attending groups. She states that she was visited by a retail sales representative from a [facility] which went well. She continues to endorse AH "just voices out there". She states that she plans on having lunch with her sister today who is visiting. Review of Systems Except as stated in HPI: all other systems reviewed are Neg Mental Status Examination Appearance: Disheveled (showers daily) Consciousness: Alert Orientation: x4 Motor Activity: Other (no motor abnormalities noted) Speech: Unremarkable Language: Adequate Fund of Knowledge: Adequate Attention and Concentration: Easily Distracted Memory: Unremarkable (fair on clinical exam) Mood: Sad, Other ("not good") Affect: Other (restricted) Thought Process & Associations: Intact, Linear Thought Content: Appropriate Hallucination Type: Auditory Delusion Type: Paranoid Suicidal Ideation: No Suicidal Plan: No Suicidal Intention: No Homicidal Ideation: No Homicidal Plan: No Homicidal Intention: No Insight: Poor Judgment: Impulsive Results Vitals/IOs Vital Signs Date Time Temp Pulse Resp B/P (MAP) Pulse Ox O2 Delivery O2 Flow Rate FiO2 06/01/17 06:25 98.0 49 15 142/61 (88) 95 Intake and Output 06/01/17 06/01/17 06/02/17 08:00 16:00 00:00 Intake Total 0 ml 960 ml Balance 0 ml 960 ml Assessment & Plan Problem List: (1) Schizophrenia, paranoid type ICD Codes: F20.0 - Paranoid schizophrenia Status: Acute Assessment & Plan Patient continues to endorse depressed mood which appears to be improving as patient is noted to be less isolative; continues with AH which are less intense. Continue current treatment. Discharge planningin progress. Justification for Cont. Inpt. At risk for further decompensation if at lower level of care. Discharge Planning Patient to be [facility] once psychiatrically stable. Request HC Surrog/Guard Advoc?: Aman Pringle MD Jun 01, 2017 16:35
[2017-06-01 18:22] VITALS: BP 114/59; PULSE 71; RESP 16; TEMP 98.1; O2SAT 97
[2017-06-01] MEDS: QUEtiapine FUMARATE 100 MG TAB PO SCH (20:01)
[2017-06-02] MEDS: NYSTATIN 100,000 U/GM PWD 15 GM BTL TOPICAL SCH ×3 (05:34→21:38)
[2017-06-02 06:00] VITALS: BP 119/55; PULSE 59; RESP 16; TEMP 97.5; O2SAT 95
[2017-06-02] MEDS: ATORVASTATIN 10 MG TAB PO SCH (08:31)
[2017-06-02] MEDS: DOCUSATE SODIUM 50 MG/SENNA 8.6 MG TAB PO SCH ×2 (08:31→21:37)
[2017-06-02] MEDS: ESCITALOPRAM OXALATE 20 MG TAB PO SCH (08:31)
[2017-06-02] MEDS: GABAPENTIN 300 MG CAP PO SCH ×3 (08:31→17:11)
[2017-06-02] MEDS: CARVEDILOL 3.125 MG TAB PO SCH ×2 (08:33→21:00)
[2017-06-02] MEDS: MAGNESIUM HYDROXIDE SUSP 30 ML CUP PO PRN (11:35)
--- NOTE | 2017-06-02 13:05 | HHI.PYPN ---
Subjective Remarks Patient was seen and case discussed with nursing. Patient says she is bothered by auditory hallucinations that are warning her of her salvation and that she would be arrested. They're not command in nature. She appears to be actively hallucinating during the interview. She denies suicidal or homicidal ideation intent or plan. She is tolerating her medications well with no EPS. Mental Status Examination Appearance: Disheveled (showers daily) Consciousness: Alert Orientation: x4 Motor Activity: Other (no motor abnormalities noted) Speech: Unremarkable Language: Adequate Fund of Knowledge: Adequate Attention and Concentration: Easily Distracted Memory: Unremarkable (fair on clinical exam) Mood: Sad, Other ("not good") Affect: Other (restricted) Thought Process & Associations: Intact, Linear Thought Content: Appropriate Hallucination Type: Auditory (that she will be arrested) Delusion Type: Paranoid Suicidal Ideation: No Suicidal Plan: No Suicidal Intention: No Homicidal Ideation: No Homicidal Plan: No Homicidal Intention: No Insight: Poor Judgment: Impulsive Results Vitals/IOs Vital Signs Date Time Temp Pulse Resp B/P (MAP) Pulse Ox O2 Delivery O2 Flow Rate FiO2 06/02/17 06:00 97.5 59 16 119/55 (76) 95 Intake and Output 06/02/17 06/02/17 06/03/17 08:00 16:00 00:00 Intake Total 360 ml 240 ml Balance 360 ml 240 ml Assessment & Plan Problem List: (1) Schizophrenia, paranoid type ICD Codes: F20.0 - Paranoid schizophrenia Status: Acute Assessment & Plan Continue current treatment plan Justification for Cont. Inpt. Patient would decompensate in a less restrictive setting Request HC Surrog/Guard Advoc?: No Osmar Leary DO Jun 02, 2017 13:05
[2017-06-02 20:50] VITALS: BP 107/59; PULSE 74; RESP 18; TEMP 98.7; O2SAT 96
[2017-06-02] MEDS: QUEtiapine FUMARATE 100 MG TAB PO SCH (21:38)
[2017-06-03] MEDS: NYSTATIN 100,000 U/GM PWD 15 GM BTL TOPICAL SCH ×3 (06:00→20:39)
[2017-06-03 06:26] VITALS: BP 102/70; PULSE 65; RESP 18; TEMP 98; O2SAT 95
[2017-06-03] MEDS: DOCUSATE SODIUM 50 MG/SENNA 8.6 MG TAB PO SCH ×2 (08:46→20:34)
[2017-06-03] MEDS: ESCITALOPRAM OXALATE 20 MG TAB PO SCH (08:46)
[2017-06-03] MEDS: GABAPENTIN 300 MG CAP PO SCH ×3 (08:47→18:00)
[2017-06-03] MEDS: ATORVASTATIN 10 MG TAB PO SCH (08:47)
[2017-06-03] MEDS: CARVEDILOL 3.125 MG TAB PO SCH ×2 (08:47→20:39)
--- NOTE | 2017-06-03 11:00 | HHI.PYPN ---
Subjective Remarks Patient was seen and case discussed with nursing. Per nursing, she had a large bowel movement. Earlier today she told nursing that the voices were gone however during my interview she appeared very psychotic. She is opening her eyes wide, says she is afraid to leave the room and that somebody is watching her wants to harm her. Patient said the voices were coming out of the TV this morning. Denies suicidal or homicidal ideation intent or plan Mental Status Examination Appearance: Disheveled (showers daily) Consciousness: Alert Orientation: x4 Motor Activity: Other (no motor abnormalities noted) Speech: Unremarkable Language: Adequate Fund of Knowledge: Adequate Attention and Concentration: Easily Distracted Memory: Unremarkable (fair on clinical exam) Mood: Sad, Other ("not good") Affect: Other (restricted) Thought Process & Associations: Intact, Linear Thought Content: Delusional Hallucination Type: Auditory (that she is being watched and will be harmed) Delusion Type: Paranoid Suicidal Ideation: No Suicidal Plan: No Suicidal Intention: No Homicidal Ideation: No Homicidal Plan: No Homicidal Intention: No Insight: Poor Judgment: Impulsive Results Vitals/IOs Vital Signs Date Time Temp Pulse Resp B/P (MAP) Pulse Ox O2 Delivery O2 Flow Rate FiO2 06/03/17 06:26 98.0 65 18 102/70 (81) 95 Intake and Output 06/03/17 06/03/17 06/04/17 08:00 16:00 00:00 Intake Total 0 ml 120 ml Balance 0 ml 120 ml Assessment & Plan Problem List: (1) Schizophrenia, paranoid type ICD Codes: F20.0 - Paranoid schizophrenia Status: Acute Assessment & Plan Continue current treatment plan Justification for Cont. Inpt. Patient would decompensate in a less restrictive setting Request HC Surrog/Guard Advoc?: No Osmar Leary DO Jun 03, 2017 11:00
[2017-06-03] MEDS ORDERED: BISACODYL 10 MG SUPP RECTAL ONE (14:15)
--- NOTE | 2017-06-03 15:18 | HHI.PR ---
Subjective Remarks Follow up for medical management constipation Patient states she continues to be constipated. She denies any abdominal or rectal pain. She has no other complaints. She is less agitated today than when seen 2 days ago. Objective Vitals Vital Signs Date Time Temp Pulse Resp B/P (MAP) Pulse Ox O2 Delivery O2 Flow Rate FiO2 06/03/17 06:26 98.0 65 18 102/70 (81) 95 06/02/17 20:50 98.7 74 18 107/59 (75) 96 I/O 06/02/17 06/02/17 06/02/17 06/03/17 06/03/17 06/03/17 07:00 15:00 23:00 07:00 15:00 23:00 Intake Total 0 ml 1200 ml 480 ml 600 ml 360 ml Balance 0 ml 1200 ml 480 ml 600 ml 360 ml Intake Oral 0 ml 1200 ml 480 ml 600 ml 360 ml # Voids 2 4 1 # Bowel Movements 0 0 Objective Remarks GENERAL: Patient was found sleeping but was able to arouse. Patient was not agitated today. CARDIOVASCULAR: Regular rate and rhythm without murmurs, gallops, or rubs. RESPIRATORY: Breath sounds equal bilaterally. No accessory muscle use. GASTROINTESTINAL: Abdomen soft, non-tender, nondistended. MUSCULOSKELETAL: No cyanosis, or edema. NEURO: AAO 1 only oriented to self. Motor grossly intact. Medications and IVs Current Medications Acetaminophen (Tylenol) 650 mg Q4H PRN PO Pain 1-5 or Temp >101F; Start at 13:45 Magnesium Hydroxide (Milk Of Magnesia Liq) 30 ml DAILY PRN PO CONSTIPATION Last administered on 06/02/17t 11:35; Start 05/26/17 at 13:45 Al Hydrox/Mg Hydrox/Simethicone (Mag-Al Plus Susp Liq) 30 ml Q6H PRN PO DYSPEPSIA; Start 05/26/17 at 13:45 Nicotine (Habitrol 21 Mg Patch.24 Hr) 1 patch DAILY T-DERMAL ; Start 05/27/17 at 09:00; Stop 05/27/17 at 13:44; Status DC Atorvastatin Calcium (Lipitor) 10 mg DAILY PO Last administered on 06/03/17 08:47; Start 05/27/17 at 09:00 Carvedilol (Coreg) 3.125 mg BID PO Last administered on 06/03/17 08:47; Start 05/26/17 at 21:00 Gabapentin (Neurontin) 300 mg TID PO Last administered on 06/03/17 12:24; Start 05/26/17 at 18:00 Quetiapine Fumarate (SEROquel) 150 mg HS PO Last administered on 06/02/17 21: 38; Start 05/26/17 at 21:00 Miscellaneous Information 1 DAILY T-DERMAL ; Start 05/27/17 at 09:00; Stop at 13:44; Status DC Pneumococcal Polyvalent Vaccine (Pneumovax-23 Inj) 25 mcg ONCE ONCE IM ; Start 05/27/17 at 10:00; Stop 05/27/17 at 10:01; Status DC Influenza Virus Vaccine (Flu (Quadrivalent) Vaccine Inj) 0.5 ml ONCE ONCE IM ; Start 05/27/17 at 10:00; Stop 05/27/17 at 10:01; Status DC Escitalopram Oxalate (Lexapro) 10 mg DAILY PO Last administered on 05/31/17 09:12; Start 05/28/17 at 09:00; Stop 05/31/17 at 12:40; Status DC Nystatin (Mycostatin Powder) 1 applic Q8HR TOPICAL Last administered on 21:38; Start 05/27/17 at 14:00 Paliperidone Palmitate (Invega Sustenna Inj) 234 mg Q28D IM Last administered on 05/29/17 15:18; Start 05/29/17 at 12:00 Albuterol/ Ipratropium (Duoneb Neb) 1 ampule Q6HR NEB PRN NEB WHEEZING/SOB; Start 05/27/17 at 14:15 Senna/Docusate Sodium (Nkechi-Colace) 1 tab BID PO Last administered on 08:46; Start 05/30/17 at 21:00; Stop 06/03/17 at 14:07; Status DC Bisacodyl (Dulcolax Supp) 10 mg ONCE ONCE RECTAL Last administered on 16:00; Start 05/30/17 at 16:00; Stop 05/30/17 at 16:01; Status DC Escitalopram Oxalate (Lexapro) 20 mg DAILY PO Last administered on 06/03/17t 08:46; Start 06/01/17 at 09:00 Bisacodyl (Dulcolax Supp) 10 mg ONCE ONCE RECTAL ; Start 06/03/17 at 14:15; Stop 06/03/17 at 14:16; Status DC Senna/Docusate Sodium (Nkechi-Colace) 2 tab BID PO ; Start 06/03/17 at 21:00 Polyethylene Glycol (Miralax) 17 gm DAILY PO ; Start 06/04/17 at 09:00 A/P Assessment and Plan This is a 56-year-old female who was admitted due to episode of paranoid schizophrenia [facility] consulted for medical management and due to constipation Constipation -Patient does have a history of fissure in which she stated that her GI physician will not do any procedure. She is appears to be very comfortable. Need to prevent constipation for improvement of symptoms. -Increased Nkechi-Colace to 2 tablets twice a day. Add MiraLAX and give suppository. -Continue to monitor for bowel movements. -Patient is to follow-up with her GI physician in regards to chronic treatment for rectal fissure. Paranoid schizophrenia - Management per primary team. Hypertension/GERD/CAD/COPD/Tobacco abuse /Neuropathy/Hyperlipidemia/Chronic back and neck pain Continue with home regimen. DVT prophylaxis -Encourage ambulation. Margaret Lopez MD Jun 03, 2017 15:18
[2017-06-03 18:23] VITALS: BP 101/58; PULSE 71; RESP 17; TEMP 98; O2SAT 97
[2017-06-03] MEDS: QUEtiapine FUMARATE 100 MG TAB PO SCH (20:39)
[2017-06-04 05:34] VITALS: BP 121/59; PULSE 55; RESP 17; TEMP 98
[2017-06-04] MEDS: NYSTATIN 100,000 U/GM PWD 15 GM BTL TOPICAL SCH (06:00)
[2017-06-04] MEDS ORDERED: POLYETHYLENE GLYCOL 17 GM PKG PO SCH (09:00)
[2017-06-04] MEDS: DOCUSATE SODIUM 50 MG/SENNA 8.6 MG TAB PO SCH (09:04)
[2017-06-04] MEDS: CARVEDILOL 3.125 MG TAB PO SCH (09:04)
[2017-06-04] MEDS: GABAPENTIN 300 MG CAP PO SCH (09:04)
[2017-06-04] MEDS: ATORVASTATIN 10 MG TAB PO SCH (09:05)
[2017-06-04] MEDS: ESCITALOPRAM OXALATE 20 MG TAB PO SCH (09:05)
[2017-06-04] MEDS ORDERED: NYST10007 TOPICAL (09:46)
[2017-06-04] MEDS ORDERED: LIPI10TA PO (09:46)
[2017-06-04] MEDS ORDERED: PALI234P IM (09:46)
[2017-06-04] MEDS ORDERED: NEUR300C PO (09:46)
[2017-06-04] MEDS ORDERED: QUET1TAB8 PO (09:46)
[2017-06-04] MEDS ORDERED: ESCI20TA PO (09:46)
[2017-06-04] MEDS ORDERED: CARV3.125 PO (09:46)
--- NOTE | 2017-06-04 14:29 | PD.TTN ---
Patient Problems 1. Discharge planning 2. Medication compliance 3. Knowledge deficit 4. Lack of coping skills Progress Toward Goals Provider Present: Dr. Nell Jorge Provider Input: changed the medications in need for placement and wanting to go to [facility] 05/30/17 needs to live in a facility still symptomatic and got her injectable 06/04 patient is stable for discharge Nurse(s) Input: Earl: med compliant , cooperative 05/30: Kristine: isolative took medications 06/04 med compliant Psychiatric Counselors Present: Kayla Alves LCSW Psych Therapist Input: still some paranoia but wanting to live in a placement faxed referral to Estefanía Muñoz 05/30 s/w sister of patient and she located local [facility] in [place] the [facility] home who will be out to assess patient tomorrow patient has been looking for re-assurance and constantly pre-occupied and anxious becoming consumed with what is being discussed 06/04 [facility] accepted patient, will set up transport and forms for facility to be ready for discharge today Group Spec/RT/OT/OWEN Present: Sachin Barajas OT Group Spec/RT/OT/OWEN Input: 05/30 Alyss: attends select groups [employer] and remains paranoid 06/04 patient attends most groups if encouraged and often participates Occupational Therapist Input: Edison: fair participation, unstable behaviors Kayla Alves LCSW Jun 04, 2017 14:29
--- NOTE | 2017-06-04 16:01 | HHI.DS ---
Psychiatry Discharge Summary Inpatient Psychiatric care?: Yes Advance Directive: No Reason Not Provided: Due to Patient Condition Mental Health AdvanceDirective: No Health Care Proxy: No Admission Admission Date May 26, 2017 at 13:00 Admission Diagnosis: (1) Schizophrenia, paranoid type ICD Code: F20.0 - Paranoid schizophrenia Brief History Ms. Hansen is a 56-year-old female with a reported history of schizophrenia who presents under a Chao act by outpatient provider alleging that the patient plans to walk into traffic. Patient was seen in the ED by psychiatric nurse practitioner. Reviewing the electronic medical record, I note that the patient was admitted from March into the beginning of May of this year with several different providers, discharged by Dr. Jorge. Patient seen and examined with nurse. Chart reviewed. Case discussed with nursing staff. On my examination today, the patient says that she came into the hospital because "my meds haven't been right." She says that she has been experiencing visual hallucinations, chiefly during the day, of "walking home." She endorses auditory hallucinations "telling me I'm going to get hurt, going to have worms, going to be sick." She says that with the medication adjustments by the psychiatric nurse practitioner yesterday, her psychotic symptoms are improved today. No delusional material. She does endorse severe depression. She endorses hopeless and worthless feelings. Sleep is reportedly poor. She endorses suicidal ideation with plan to walk into traffic. She denies any urge to hurt herself on the inpatient psychiatric unit. No hypomanic or manic symptoms. The remainder of the psychiatric ROS is negative. She does describe a rash under her breasts and abdomen but otherwise verbalizes no physical complaints. Past psychiatric history: The patient reports a history of schizophrenia. She is treated by Jyotsna Villeda at [facility]. She reports that she is adherent with her psychotropic regimen, although she cannot recall what she takes. Her most recent psychiatric admission was here at [place]. She says that she tried to walk into traffic about a month and a half ago but otherwise denies a history of suicide attempts. Tobacco Use In Past 30 Days: No Tobacco Past 30 Days Alcohol Use: Never Hospital Course Patient is a 56-year-old woman, domiciled alone with past psychiatric history of schizophrenia, previous psychiatric admissions who was brought in under a Chao act by outpatient provider alleging that the patient plans on walking into traffic. Patient was started on Lexapro 10mg PO daily and titrated up to 20mg, received Invega Sustenna 234mg IM on 05/29/17, continued on quetiapine 150mg PO HS, gabapentin 300mg PO TID, and Cogentin 1mg PO HS. Patient was admitted to the inpatient psychiatric unit for further evaluation and management. She responded well to treatment, was noted to be cooperative with staff, no behavioral dyscontrol during admission and was active in groups and activities. Upon discharge patient reported feeling good and excited to be going to [facility], denied any perceptual disturbances nor suicidal ideations or homicidal ideations. Patient agreed to continue treatment and follow up appointments for continuity of care. Patient advised to call 911 or go nearest ED in case of emergency. Patient agreed with plan. Results Blood Pressure 121 / 59 Vital Signs Date Time Temp Pulse Resp B/P (MAP) Pulse Ox O2 Delivery O2 Flow Rate FiO2 06/04/17 05:34 98.0 55 17 121/59 (79) 06/03/17 18:23 97 Laboratory Results Test 05/27/17 11:12 Cholesterol Level 149 MG/DL (120-200) HDL Cholesterol 40.9 MG/DL (40.0-60.0) Hemoglobin A1c 5.7 % (4.3-6.0) LDL Cholesterol 58 MG/DL (0-99) Triglycerides Level 251 MG/DL (42-150) Summary of Procedures none Pending results at discharge: No Medications # of Antipsychotic meds at D/C: 2 Appropriate >1 Antipsych meds?: 4 (Patient currently with long-acting injectible as well as second antipsychotic as adjuct for psychosis and depression.) Approp Antipsych med options 1 - Minimum of three failed multiple trials of monotherapy. 2 - Documented plan to taper to monotherapy due to previous use of multiple meds OR cross-taper in progress at D/C. 3 - Documentation of augmentation of Clozapine. 4 - Justification other than those listed in allowable values 1-3, document here : Discharge Discharge Date: Jun 04, 2017 Discharge Diagnosis: (1) Schizophrenia, paranoid type Diagnosis: Principal ICD Code: F20.0 - Paranoid schizophrenia Status: Acute Pt Condition on Discharge: Stable Discharge Disposition: [facility] Discharge Instructions Diet Instructions: Heart Healthy Diet Activities you can perform: Regular-No Restrictions Scheduled Appointment: Beltran Marchman Act Appointment Date: Jun 05, 2017 Appointment Time: 7:45am Discharge Time > 30 minutes Mental Status Examination Appearance: Appropriate Consciousness: Alert Orientation: x4 Motor Activity: Normal gait, Other (no motor abnormalities noted) Speech: Unremarkable Language: Adequate Fund of Knowledge: Adequate Attention and Concentration: Adequate Memory: Unremarkable (fair on clinical exam) Mood: Appropriate Affect: Other (restricted) Thought Process & Associations: Intact, Goal directed, Linear Thought Content: Appropriate, Delusional Hallucination Type: None Delusion Type: Paranoid (has some paranoia at baseline) Suicidal Ideation: No Suicidal Plan: No Suicidal Intention: No Homicidal Ideation: No Homicidal Plan: No Homicidal Intention: No Insight: Fair Judgment: Impulsive Discharge/Advance Care Plan Health Problems: (1) Schizophrenia, paranoid type Goals to promote your health * To prevent worsening of your condition and complications * To maintain your health at the optimal level Directions to meet your goals Take your medications as prescribed Follow your dietary instruction Follow activity as directed Keep your appointments as scheduled Take your immunizations and boosters as scheduled If your symptoms worsen call your PCP, if no PCP go to Urgent Care Center or Emergency Room For 26/02 questions related to your inpatient stay or results of tests pending at discharge, please contact Dr. Aman Jorge at Smoking is Dangerous to Your Health. Avoid second hand smoking Aman Jorge MD Jun 04, 2017 16:01
== END 2017-06-04 11:55 | DRG 885 ==
LOC: NEPE 15:58 → NEDA 05-26 13:00 → H250 05-26 14:29
PROVIDERS: ADMIT Student in an Organized Health Care Education/Training Program; ATTEND Student in an Organized Health Care Education/Training Program
DX: F20.0 Paranoid schizophrenia (principal); R45.851 Suicidal ideations; E11.9 Type 2 diabetes mellitus without complications; G62.9 Polyneuropathy, unspecified; I10 Essential (primary) hypertension; D72.829 Elevated white blood cell count, unspecified; F32.9 Major depressive disorder, single episode, unspecified; J44.9 Chronic obstructive pulmonary disease, unspecified; K21.9 Gastro-esophageal reflux disease without esophagitis; R21 Rash and other nonspecific skin eruption; K59.00 Constipation, unspecified; G89.29 Other chronic pain; E78.5 Hyperlipidemia, unspecified; M54.2 Cervicalgia; M54.9 Dorsalgia, unspecified; I25.10 Atherosclerotic heart disease of native coronary artery without angina pectoris; K60.2 Anal fissure, unspecified; M19.90 Unspecified osteoarthritis, unspecified site; F12.90 Cannabis use, unspecified, uncomplicated; F17.200 Nicotine dependence, unspecified, uncomplicated; Z88.0 Allergy status to penicillin; Z88.1 Allergy status to other antibiotic agents; Z88.2 Allergy status to sulfonamides
CPT/HCPCS: 80048; 80053; 80061; 80307; 83036; 85025; J2426